=== PATIENT | female | born 1955 | race American Indian/Alaskan Native ===

== ENCOUNTER 2016-10-24 11:28 | Inpatient (IN) | payer MEDICARE, MEDICAID ==
[2016-10-24 11:29] VITALS: BMI 36.6
[2016-10-24 12:56] LABS: BASO # 0.1 K/uL (0.0-0.2); BASO % 1.4 % (0.0-2.0); EOS # 0.1 K/uL (0.0-0.7); EOS % 2.9 % (0.0-4.0); HEMATOCRIT 36.3 % (34.0-47.0); LYMPH # 1.2 K/uL (1.0-4.3); LYMPH % 24.7 % (20.0-40.0); MEAN CELL VOLUME 85.2 fL (81.0-99.0); MEAN CORPUSCULAR HGB CONC 31.7 g/dL (33.0-37.0); MEAN PLATELET VOLUME 8.4 fL (7.2-11.7); MONO # 0.5 K/uL (0.0-0.8); MONO % 10.5 % (0.0-10.0); RED CELL DISTRIBUTION WIDTH 14.8 % (11.5-14.5)
[2016-10-24 13:00] LABS: INR 2.3
[2016-10-24 13:03] LABS: CHLORIDE 99 mmol/L (98-107); SODIUM 137 mmol/L (132-148)
[2016-10-24 13:04] LABS: POTASSIUM 4.2 mmol/L (3.6-5.2)
[2016-10-24 13:06] LABS: ALB/GLOB RATIO 1.2 (1.0-2.1); ALKALINE PHOSPHATASE 53 U/L (38-126); AST/SGOT 21 U/L (14-36); BILIRUBIN,TOTAL 0.6 mg/dL (0.2-1.3); CARBON DIOXIDE 27 mmol/L (22-30); GFR AFRICAN-AMERICAN > 60; TOTAL PROTEIN 7.9 g/dL (6.3-8.3)
[2016-10-24 13:07] LABS: ALT/SGPT 21 U/L (9-52); BLOOD UREA NITROGEN 18 mg/dL (7-17); CALCIUM 8.9 mg/dl (8.6-10.4); GLUCOSE,RANDOM 110 mg/dL (65-105)
[2016-10-24 13:10] LABS: RBC URINE 1 /hpf (0-3); URINE BILIRUBIN NEGATIVE (NEGATIVE); URINE BLOOD NEGATIVE (NEGATIVE); URINE COLOR Yellow (YELLOW); URINE GLUCOSE (UA) NORMAL (Normal); URINE KETONE NEGATIVE (NEGATIVE); URINE LEUKOCYTE ESTERASE NEG Leu/uL (Negative); URINE PROTEIN NEGATIVE (NEGATIVE); URINE UROBILINOGEN NORMAL mg/dL (0.2-1.0); WBC URINE 2 /hpf (0-5)
--- NOTE | 2016-10-24 14:39 | C.PDOC ---
History Of Present Illness 60 year old female presents to the ED with complaints of swelling and redness in the right lower extremity for two days. Patient describes the pain as lasting a "long time" and two weeks ago she visited her infectious disease doctor and was given bactrim and completed the medication five days ago with some relief but symptoms have become worse since then. She notes a history of ulcers and cellulitis. Patient denies fever, chills, or trauma. Time Seen by Provider: 10/24/16 12:04 Chief Complaint (Nursing): Lower Extremity Problem/Injury History Per: Patient History/Exam Limitations: no limitations Onset/Duration Of Symptoms: Days Current Symptoms Are (Timing): Worse Past Medical History Reviewed: Historical Data, Nursing Documentation, Vital Signs Vital Signs: Last Vital Signs Temp 98.2 F 10/24/16 16:30 Pulse 86 10/24/16 16:30 Resp 18 10/24/16 16:30 BP 98/66 L 10/24/16 16:30 Pulse Ox 95 10/24/16 16:30 - Medical History PMH: Anemia, Back Problems, COPD, Diabetes, Deep Vein Thrombosis (chronic or rt leg), HTN, Hypercholesterolemia Surgical History: Endoscopy - [facility] Procedures ANESTH INJECT SYMP NERVE (10/17/14) COLONOSCOPY (06/14/14) ENDO EXCISION/DEST OF LESION OR TISSUE OF STOMACH (06/14/14) INFLUENZA VACCINATION (03/22/13) NON-INVASIVE MECHANICAL VENTILATION (01/05/13) PERIPH NERVE DESTRUCTION (12/05/14) Family History: States: Unknown Family Hx - Social History Hx Tobacco Use: No Hx Alcohol Use: No Hx Substance Use: No - Immunization History Hx Tetanus Toxoid Vaccination: Yes Hx Influenza Vaccination: Yes Hx Pneumococcal Vaccination: Yes Review Of Systems Constitutional: Negative for: Fever, Chills, Sweats Cardiovascular: Negative for: Chest Pain Respiratory: Negative for: Cough, Shortness of Breath Gastrointestinal: Negative for: Nausea, Vomiting, Abdominal Pain, Diarrhea Musculoskeletal: Positive for: Other (swelling and reness of the right lower leg ) Physical Exam - Physical Exam Appears: Non-toxic, No Acute Distress Skin: Warm, Dry, No Rash Head: Atraumatic Eye(s): bilateral: Normal Inspection Oral Mucosa: Moist Neck: Normal ROM, Supple Chest: Symmetrical, No Deformity Cardiovascular: Rhythm Regular Respiratory: No Rales, No Rhonchi, No Stridor, No Wheezing Gastrointestinal/Abdominal: Soft, No Tenderness, No Distention, No Guarding, No Rebound Extremity: Normal ROM, No Tenderness, Other (moderate swelling with area of reddness extending from mid-calf to ankle ) Neurological/Psych: Oriented x3 ED Course And Treatment - Laboratory Results Result Diagrams: 10/24/16 12:51 10/24/16 12:51 ECG: Interpreted By Me ECG Rhythm: Sinus Rhythm, R BBB ECG Interpretation: No Acute Changes Rate From EC O2 Sat by Pulse Oximetry: 100 (room air ) Medical Decision Making Medical Decision Making: Labs sent and reviewed, Post cultures pt started on tigercyl as she has multiple allergies and it has good skin as well as mrsa coverage Pt had finished a course of bactrim therefore will need admission for IV abx Discussed with dr Snell who agrees with plan Disposition - Disposition Disposition: HOSPITALIZED Disposition Time: 16:40 Condition: GOOD - Clinical Impression Clinical Impression: Cellulitis of right leg - Scribe Statement The provider has reviewed the documentation as recorded by the Scribe Brandie Mosquera All medical record entries made by the Jenibe were at my direction and personally dictated by me. I have reviewed the chart and agree that the record accurately reflects my personal performance of the history, physical exam, medical decision making, and the department course for this patient. I have also personally directed, reviewed, and agree with the discharge instructions and disposition. Decision To Admit - Pt Status Changed To: Hospital Disposition Of: Inpatient - Admit Certification Admit to Inpatient:: After my assessment, the patient will require hospitalization for at least two midnights. This is because of the severity of symptoms shown, intensity of services needed, and/or the medical risk in this patient being treated as an outpatient. - InPatient: Physician Admission Certification: I certify that this patient requires 2 or more midnights of care for the following reason:: see note - . Bed Request Type: Regular Admitting Physician: Ambrocio Ramirez Patient Diagnosis: Cellulitis of right leg
[2016-10-24] MEDS ORDERED: Morphine 4 MG/ML VIAL ONE (15:26)
[2016-10-24 19:12] VITALS: RESP 20
[2016-10-24] MEDS ORDERED: Albuterol 0.083% Inhal Sol (2.5 mg/3 mL) UD INH PRN (20:00)
[2016-10-24] MEDS: (Novolog) Insulin Aspart, Recombinant 100 u/ml 10 ml vial SC SCH (21:40)
[2016-10-25 07:26] LABS: INR 2.2
[2016-10-25 07:31] LABS: HEMATOCRIT 34.2 % (34.0-47.0); MEAN CELL VOLUME 84.6 fL (81.0-99.0); MEAN CORPUSCULAR HEMOGLOBIN 27.2 pg (27.0-31.0); MEAN CORPUSCULAR HGB CONC 32.1 g/dL (33.0-37.0); MEAN PLATELET VOLUME 8.6 fL (7.2-11.7); RED CELL DISTRIBUTION WIDTH 14.5 % (11.5-14.5); WHITE BLOOD COUNT 5.1 K/uL (4.8-10.8)
[2016-10-25] MEDS: (Novolog) Insulin Aspart, Recombinant 100 u/ml 10 ml vial SC SCH ×4 (07:41→21:48)
[2016-10-25 08:09] LABS: THYROID STIMULATING HORMONE 0.86 mIU/L (0.46-4.68)
[2016-10-25 08:11] LABS: CHLORIDE 101 mmol/L (98-107); POTASSIUM 4.2 mmol/L (3.6-5.2); SODIUM 137 mmol/L (132-148)
[2016-10-25 08:13] LABS: BILIRUBIN,TOTAL 0.5 mg/dL (0.2-1.3); GFR AFRICAN-AMERICAN > 60
[2016-10-25 08:14] LABS: ALB/GLOB RATIO 1.1 (1.0-2.1); ALKALINE PHOSPHATASE 56 U/L (38-126); ALT/SGPT 19 U/L (9-52); AST/SGOT 21 U/L (14-36); BLOOD UREA NITROGEN 22 mg/dL (7-17); CARBON DIOXIDE 26 mmol/L (22-30); GLUCOSE,RANDOM 85 mg/dL (65-105)
[2016-10-25 08:15] LABS: CALCIUM 8.5 mg/dl (8.6-10.4)
[2016-10-25] MEDS: Fluticasone-Salmeterol 250-50mcg Diskus INH SCH (08:21)
[2016-10-25] MEDS: Pantoprazole 40 mg EC Tab PO SCH (10:03)
--- NOTE | 2016-10-25 12:44 | CP.PCM.CON ---
History of Present Illness - History of Present Illness History of Present Illness: History of Present Illness: .60-year-old female with multiple medical problems including history of chronic obstructive pulmonary lung disease, obstructive sleep apnea, diabetes mellitus type 2, chronic right DVT PE, status post IVC filter with history of multiple blood infections including MRSA and enterococcal sepsis secondary to catheter related infections,STSI, Now admitted by the emergency room because of failed outpatient therapy with by mouth Bactrim one double strength twice a day X 5 DAYS. Patient states she had increasing pain right lower extremity and swelling with new pustular skin lesions noted on the right lower extremity. Patient states she was having difficulty ambulating and therefore came to ER for further evaluation. Patient has multiple allergies and was therefore started on IV Tygacil as noted. INFECTIOUS DISEASE CONSULTATION REQUESTED BY DR. RHODES PATIENT ALSO COMPLAINS OF NEW ONSET OF DIARRHEA WITH FOUR LOOSE BOWEL MOVEMENTS AND CRAMPY STOMACH. DENIES ANY NAUSEA VOMITING. PATIENT DENIES ANY FEVER OR CHILLS. PMH;as above Social history. Ex-smoker. Denies drinking. Allergies. Penicillin, vancomycin, clindamycin, latex, adhesive , shellfish. Patient is able to tolerate AZACTAM, AND TYGACIL. FAMILY HISTORY; NONCONTRIBUTORY Review of Systems - Constitutional Constitutional: absent: Chills, Fever - EENT Ears: absent: Dizziness Nose/Mouth/Throat: absent: Sore Throat - Cardiovascular Cardiovascular: absent: Chest Pain, Dyspnea - Respiratory Respiratory: Dyspnea on Exertion. absent: Cough - Gastrointestinal Gastrointestinal: Abdominal Pain, Cramping, Diarrhea. absent: Nausea, Vomiting - Genitourinary Genitourinary: absent: Dysuria, Hematuria - Menstruation Menstruation: Post Menopausal - Musculoskeletal Musculoskeletal: Abnormal Gait, Back Pain, Radiating Pain into Limb - Integumentary Integumentary: Skin Ulcer (TO SKIN ULCERS/ PUSTULES NOTED ON THE RIGHT LOWER EXTREMITY) - Neurological Neurological: absent: Headaches - Hematologic/Lymphatic Hematologic: As Per HPI. absent: Easy Bleeding, Easy Bruising, Lymphadenopathy Past Patient History - Infectious Disease Hx of Infectious Diseases: MRSA - Past Medical History & Family History Past Medical History?: Yes - Past Social History Smoking Status: Never Smoked - CARDIAC Hx Hypercholesterolemia: Yes Hx Hypertension: Yes - PULMONARY Hx Chronic Obstructive Pulmonary Disease (COPD): Yes - NEUROLOGICAL Hx Neurological Disorder: No - HEENT Hx HEENT Problems: No - RENAL Hx Chronic Kidney Disease: No - ENDOCRINE/METABOLIC Hx Endocrine Disorders: Yes Hx Diabetes Mellitus Type 2: Yes - HEMATOLOGICAL/ONCOLOGICAL Hx Anemia: Yes - INTEGUMENTARY Hx Dermatological Problems: No - MUSCULOSKELETAL/RHEUMATOLOGICAL Hx Musculoskeletal Disorders: No Hx Falls: Yes (multiple) - GASTROINTESTINAL Hx Gastrointestinal Disorders: Yes Hx Gastroesophageal Reflux: Yes - GENITOURINARY/GYNECOLOGICAL Hx Genitourinary Disorders: No - PSYCHIATRIC Hx Substance Use: No - SURGICAL HISTORY Hx Surgeries: Yes Hx Section: Yes Hx Hysterectomy: Yes Hx Vascular Access Device: Yes (Portacath insertion Right Chest Wall) Other/Comment: Fibroids/Adhesions removal. Bladder Sx - ANESTHESIA Hx Anesthesia: Yes Hx Anesthesia Reactions: No Hx Malignant Hyperthermia: No Has any member of the family had a problem w/ anesthesia?: No Meds Allergies/Adverse Reactions: Allergies Allergy/AdvReac Type Severity Reaction Status Date / Time adhesive tape Allergy Verified 10/24/16 12:57 clindamycin Allergy Verified 10/24/16 12:57 Latex, Natural Rubber Allergy Verified 10/24/16 12:57 Penicillins Allergy Verified 10/24/16 12:57 shellfish derived Allergy Verified 10/24/16 12:57 vancomycin Allergy Verified 10/24/16 12:57 - Medications Medications: Current Medications Albuterol Sulfate (Albuterol 0.083% Inhal Marilou (2.5 Mg/3 Ml) Ud) 2.5 mg INH RTID PRN PRN Reason: Shortness of Breath Last Admin: 10/25/16 08:21 Dose: 2.5 mg Gabapentin (Neurontin) 100 mg PO BID [facility] Last Admin: 10/25/16 10:02 Dose: 100 mg Glipizide (Glucotrol) 5 mg PO ACB [facility] Last Admin: 10/25/16 08:20 Dose: 5 mg Tigecycline 50 mg/ Sodium (Chloride) 100 mls @ 100 mls/hr IVPB Q12H [facility] Last Admin: 10/25/16 10:17 Dose: 100 mls/hr Insulin Aspart (Novolog) 0 unit SC ACHS ARTEM PRN Reason: Protocol Last Admin: 10/25/16 12:35 Dose: Not Given Losartan Potassium (Cozaar) 100 mg PO DAILY [facility] Last Admin: 10/25/16 10:03 Dose: 100 mg Metformin HCl (Glucophage Xr) 750 mg PO QPM [facility] Metformin HCl (Glucophage) 500 mg PO ACB [facility] Last Admin: 10/25/16 08:20 Dose: 500 mg Montelukast Sodium (Singulair) 10 mg PO HS [facility] Last Admin: 10/24/16 21:40 Dose: 10 mg Pantoprazole Sodium (Protonix Ec Tab) 40 mg PO DAILY [facility] Last Admin: 10/25/16 10:03 Dose: 40 mg Rosuvastatin Calcium (Crestor) 5 mg PO HS [facility] Last Admin: 10/24/16 21:40 Dose: 5 mg Fluticasone/Salmeterol (Advair Diskus 250/50) 1 puff INH RQD [facility] Last Admin: 10/25/16 08:21 Dose: Not Given Physical Exam - Constitutional Appears: No Acute Distress - Head Exam Head Exam: NORMAL INSPECTION - Eye Exam Eye Exam: EOMI, PERRL - ENT Exam ENT Exam: Normal Oropharynx - Neck Exam Neck exam: Positive for: Normal Inspection - Respiratory Exam Respiratory Exam: Decreased Breath Sounds - Cardiovascular Exam Cardiovascular Exam: REGULAR RHYTHM, +S1, +S2 - GI/Abdominal Exam GI & Abdominal Exam: Normal Bowel Sounds, Soft. absent: Tenderness (MID ABDOMEN.) - Extremities Exam Extremities exam: Positive for: calf tenderness, pedal edema, tenderness ( 2 PUSTULES SEEN ANTERIORLY AND POSTERIORLY RIGHT LOWER EXTREMITY) - Neurological Exam Neurological exam: Alert, CN II-XII Intact, Oriented x3, Reflexes Normal - Psychiatric Exam Psychiatric exam: Normal Mood - Skin Skin Exam: Normal Color, Warm Results - Vital Signs Recent Vital Signs: Last Vital Signs Temp 97.5 F L 10/25/16 08:00 Pulse 83 10/25/16 08:22 Resp 20 10/25/16 08:00 BP 110/74 10/25/16 08:00 Pulse Ox 100 10/25/16 08:00 - Labs Result Diagrams: 10/25/16 07:12 10/25/16 07:12 Labs: Laboratory Results - last 24 hr 10/24/16 10/25/16 10/25/16 21:14 07:12 07:12 WBC 5.1 RBC 4.05 Hgb 11.0 Hct 34.2 MCV 84.6 MCH 27.2 MCHC 32.1 L RDW 14.5 Plt Count 282 MPV 8.6 PT INR Sodium Potassium Chloride Carbon Dioxide Anion Gap BUN Creatinine Est GFR ( Amer) Est GFR (Non-Af Amer) POC Glucose (mg/dL) 149 H Random Glucose Hemoglobin A1c 6.1 Calcium Total Bilirubin AST ALT Alkaline Phosphatase Total Protein Albumin Globulin Albumin/Globulin Ratio TSH 3rd Generation 10/25/16 10/25/16 10/25/16 07:12 07:12 07:24 WBC RBC Hgb Hct MCV MCH MCHC RDW Plt Count MPV PT 25.8 H INR 2.2 Sodium 137 Potassium 4.2 Chloride 101 Carbon Dioxide 26 Anion Gap 14 BUN 22 H Creatinine 0.9 Est GFR ( Amer) > 60 Est GFR (Non-Af Amer) > 60 POC Glucose (mg/dL) 87 Random Glucose 85 Hemoglobin A1c Calcium 8.5 L Total Bilirubin 0.5 AST 21 ALT 19 Alkaline Phosphatase 56 Total Protein 7.0 Albumin 3.7 Globulin 3.3 Albumin/Globulin Ratio 1.1 TSH 3rd Generation 0.86 Assessment & Plan (1) Cellulitis of right leg Status: Acute (2) Deep venous thrombosis of lower extremity Status: Acute (3) Diabetes mellitus Status: Acute (4) Hypertension Status: Acute (5) Sleep apnea in adult Status: Acute - Assessment and Plan (Free Text) Assessment: IMPRESSION; 1. CELLULITES /VENOUS ULCERS RT LE. 2. DIABETES MELLITES. 3. CHRONIC RT LOWER EXTREMITY DVT. 4. HX OF PE AND IVC. 5. VENOUS INSUFFICIENCY. 6. NEW ONSET OF DIARRHEA. 7. HYPERTENSION SUGGESTIONS. PANCULTURES ESR,CRP. MRSA SCREEN STOOLS FOR C. DIFFICILE TOXIN STOOLS FOR LEUKOCYTES. CONTINUE IV TYGACIL 50 MG iv PIGGYBACK EVERY 12 HOURLY (10/24/16 ) TO REVIEW DUPLEX VENOUS STUDIES ORDERED BY PMD. fOLLOW-UP BLOOD CULTURES TO ADJUST ANTIBIOTICS. CASE DISCUSSED W STAFF.
--- NOTE | 2016-10-25 13:13 | VASCLAB ---
PROCEDURE: Right Lower Extremity Venous Duplex Exam. HISTORY: Leg pain PRIORS: None. TECHNIQUE: Right common femoral, femoral, popliteal and posterior tibial, peroneal and great saphenous veins were evaluated. Flow was assessed with color Doppler, compressibility, assessment of phasic flow and augmentation response. Report prepared by MITZI Melgar, RVT FINDINGS: RIGHT: 1. Common Femoral Vein: 1.1. Compressibility - Fully compressible: Thrombus - None: Flow - Phasic: Augmentation -Normal: Reflux - None. 2. Femoral Vein: 2.1. Compressibility - Fully compressible: Thrombus - None: Flow - Phasic: Augmentation -Normal: Reflux - None. 3. Popliteal Vein: 3.1. Compressibility - Fully compressible: Thrombus - None: Flow - Phasic: Augmentation -Normal: Reflux - Severe. 4. Posterior Tibial Vein: 4.1. Compressibility - Fully compressible: Thrombus - None: Flow - Phasic: Augmentation -Normal: Reflux - None. 5. Peroneal Vein: 5.1. Compressibility - Fully compressible: Thrombus - None: Flow - Phasic: Augmentation -Normal: Reflux - None. 6. Great Saphenous Vein: 6.1. Compressibility - Fully compressible: Thrombus -None: Flow - Phasic: Augmentation - Normal: Reflux - None. OTHER FINDINGS: Severe valvular incompetence of the right popliteal vein. IMPRESSION: No evidence of deep or superficial vein thrombosis of the right lower extremity with excellent venous flow. Normal valve function noted of the right side. Normal venous flow noted in the left common femoral vein.
--- NOTE | 2016-10-25 21:43 | HP ---
The patient is a 60-year-old female with history of diabetes, hypertension, chronic DVT and COPD. Th e patient they came in today to the Emergency Room complaining of pain to the right lower extremity a nd swelling. The patient has stated having been treated by Infectious Disease, Dr. Smith and received ; however, ____ 5 days, there is no apparent improvement and the leg was swollen and tender, so the patient came to the Emergency Room for evaluation and the patient was admitted. ALLERGIES: THE PATIENT IS ALLERGIC TO CLINDAMYCIN, ADHESIVE TAPE AND VANCOMYCIN. SOCIAL HISTORY: The patient is , has children. No smoking or alcohol abuse. FAMILY HISTORY: No inherited disease. MEDICATIONS: The patient was on valsartan, metformin, Prevacid, Neurontin, Coumadin, Singulair and g lipizide. REVIEW OF SYSTEMS: RESPIRATORY: No shortness of breath. CARDIOVASCULAR: Denied any chest pain or palpitations. GASTROINTESTINAL: No nausea or vomiting, but some epigastric discomfort. GENITOURINARY: No dysuria. NEUROLOGIC: The patient to the right lower extremity. PHYSICAL EXAMINATION: GENERAL: Patient is alert, awake and oriented x 3. VITAL SIGNS: The blood pressure was 110/74, pulse is 99, respirations are 20 and temperature 97.5. HEAD: Is normocephalic and atraumatic. NECK: Supple, no JVD. LUNGS: Clear. HEART: Regular rate and rhythm. ABDOMEN: Soft. Mild epigastric tenderness. EXTREMITIES: There is swelling of the right leg which is red, tender and warm. The redness goes from ankle to the upper portion of the right leg, anteriorly and posteriorly. LABORATORY DATA: The patient also had some blood tests done. The WBC was 5, hemoglobin 11.5, hemat ocrit 36.3 and platelets 288. Coagulation: PT and INR 2.3. Chemistry: Sodium 137, potassium 4.2, chloride 101, bicarb is 26, BUN 22, creatinine 0.9 and glucose 85. A hemoglobin A1c is 6.1 and calcium 8.5. So this patient's urine was normal. So, the patient is admitted with diagnosis of cellulitis of the right leg, diabetes, hypertension, ne uropathy and chronic DVT. So, the patient will have a consult with Ambrocio Ramirez MD cc: [id number] TT: 10/25/2016 21:42:24 [facility] # [id number] sn
[2016-10-26 07:58] LABS: INR 1.7
[2016-10-26 08:05] LABS: ALB/GLOB RATIO 1.1 (1.0-2.1); BILIRUBIN,DIRECT 0.4 mg/dL (0.0-0.4); BILIRUBIN,TOTAL 0.4 mg/dL (0.2-1.3); TOTAL PROTEIN 6.9 g/dL (6.3-8.3)
[2016-10-26] MEDS: (Novolog) Insulin Aspart, Recombinant 100 u/ml 10 ml vial SC SCH ×4 (08:25→21:59)
[2016-10-26] MEDS: Fluticasone-Salmeterol 250-50mcg Diskus INH SCH (09:18)
--- NOTE | 2016-10-26 09:45 | CARD ---
APPROVED REPORT EKG Measurement Heart [id number] <Conclusion> Normal sinus rhythm Right bundle branch block Abnormal ECG
[2016-10-26] MEDS: Pantoprazole 40 mg EC Tab PO SCH (10:19)
--- NOTE | 2016-10-26 13:26 | CP.PCM.PN ---
Subjective - Date & Time of Evaluation Date of Evaluation: 10/26/16 Time of Evaluation: 13:26 - Subjective Subjective: C/O PAIN RIGHT LOWER EXTREMITY. CRAMPY ABDOMINAL PAIN DIARRHEA +VE LABS; REVIEWED STOOL c. DIFFICILE NEGATIVE. CRP HIGH CASE DISCUSSED WITH STAFF AZIZA FOR MRI RIGHT LOWER EXTREMITY R/O SOFT TISSUE INFECTION VS OSTEOMYELITIS. CONTINUE iv TYGACIL 50 MG EVERY 12 HOURLY FOR NOW. Objective - Vital Signs/Intake and Output Vital Signs (last 24 hours): Temp Pulse Resp BP Pulse Ox 98 F 84 20 122/77 96 10/26/16 07:46 10/26/16 07:46 10/26/16 07:46 10/26/16 07:46 10/26/16 07:46 Intake and Output: 10/26/16 10/26/16 06:59 18:59 Intake Total 250 Balance 250 - Medications Medications: Current Medications Albuterol Sulfate (Albuterol 0.083% Inhal Marilou (2.5 Mg/3 Ml) Ud) 2.5 mg INH RTID PRN PRN Reason: Shortness of Breath Last Admin: 10/25/16 08:21 Dose: 2.5 mg Gabapentin (Neurontin) 100 mg PO BID [facility] Last Admin: 10/26/16 10:19 Dose: 100 mg Glipizide (Glucotrol) 5 mg PO ACB [facility] Last Admin: 10/26/16 08:38 Dose: 5 mg Tigecycline 50 mg/ Sodium (Chloride) 100 mls @ 100 mls/hr IVPB Q12H [facility] Last Admin: 10/26/16 10:21 Dose: 100 mls/hr Insulin Aspart (Novolog) 0 unit SC ACHS [facility] PRN Reason: Protocol Last Admin: 10/26/16 12:34 Dose: Not Given Losartan Potassium (Cozaar) 100 mg PO DAILY [facility] Last Admin: 10/26/16 10:19 Dose: 100 mg Metformin HCl (Glucophage Xr) 750 mg PO QPM [facility] Last Admin: 10/25/16 17:56 Dose: 750 mg Metformin HCl (Glucophage) 500 mg PO ACB [facility] Last Admin: 10/26/16 08:38 Dose: 500 mg Montelukast Sodium (Singulair) 10 mg PO HS [facility] Last Admin: 10/25/16 21:46 Dose: 10 mg Morphine Sulfate (Morphine) 2 mg IVP Q4 PRN PRN Reason: Pain, severe (8-10) Last Admin: 10/26/16 10:17 Dose: 2 mg Pantoprazole Sodium (Protonix Ec Tab) 40 mg PO DAILY [facility] Last Admin: 10/26/16 10:19 Dose: 40 mg Rosuvastatin Calcium (Crestor) 5 mg PO HS [facility] Last Admin: 10/25/16 21:46 Dose: 5 mg Fluticasone/Salmeterol (Advair Diskus 250/50) 1 puff INH RQD [facility] Last Admin: 10/26/16 09:18 Dose: Not Given - Labs Labs: 10/25/16 07:12 10/25/16 07:12 PT 19.3 SECONDS (9.7-12.2) H D 10/26/16 07:09 INR 1.7 D 10/26/16 07:09 - Constitutional Appears: No Acute Distress - Head Exam Head Exam: NORMAL INSPECTION - Eye Exam Eye Exam: EOMI, PERRL - ENT Exam ENT Exam: Normal Oropharynx - Neck Exam Neck Exam: Normal Inspection - Respiratory Exam Respiratory Exam: Prolonged Expiratory Phase - GI/Abdominal Exam GI & Abdominal Exam: Soft, Normal Bowel Sounds. absent: Organomegaly - Extremities Exam Extremities Exam: Calf Tenderness (RT. LOWER EXTREMITY.), Pedal Edema - Neurological Exam Neurological Exam: Alert, Awake, CN II-XII Intact - Psychiatric Exam Psychiatric exam: Normal Mood - Skin Skin Exam: Normal Color, Warm Assessment and Plan (1) Cellulitis of right leg Assessment & Plan: CONTINUE iv TYGACIL 50 MG EVERY 12 HOURLY FOR NOW Status: Acute (2) Deep venous thrombosis of lower extremity Status: Acute (3) Diabetes mellitus Status: Acute (4) Hypertension Status: Acute (5) Sleep apnea in adult Status: Acute
--- NOTE | 2016-10-26 19:42 | PN ---
DATE: 10/26/2016 Today, the patient is alert and awake and complaining of some pain to the right leg. Denies any shor tness of breath, no chest pain, no palpitation. No dizziness, but patient complaining of some epigas tric discomfort at time. PHYSICAL EXAMINATION: VITAL SIGNS: The patient has a blood pressure of 132/83, pulse 91, respirations 20, temperature 98.2 . GENERAL: The patient is awake. NECK: Supple. LUNGS: Clear. HEART: Regular rate and rhythm. CHEST: There is some mild tenderness to the low aspect of the chest wall and sternum, increasing pre ssure of the lowest part of the sternum and mild tenderness in epigastric area of the abdomen. ABDOMEN: No palpable mass in the abdomen. EXTREMITIES: There is swelling of the right lower right leg, which is red, tender and warm. The patient has an ID consult with Dr. Yonas Smith. The patient was put on antibiotic therapy and al so the patient is getting warfarin. LABORATORY DATA: Done today shows WBC is 5.1, hemoglobin 11, hematocrit 34.2 and platelet is 282. C hemistry: ____ 0.4 ____ reactive ____, this is high.. PLAN: We are going to continue the antibiotic therapy and also we are going to order MRI of the righ t leg to rule out osteomyelitis. Ambrocio Ramirez MD cc: [id number] TT: 10/26/2016 19:41:31 Confirmation # [id number] Dictation # [id number]
[2016-10-27 06:53] LABS: INR 1.6
[2016-10-27] MEDS: (Novolog) Insulin Aspart, Recombinant 100 u/ml 10 ml vial SC SCH ×4 (08:14→21:25)
[2016-10-27] MEDS: Fluticasone-Salmeterol 250-50mcg Diskus INH SCH (11:11)
[2016-10-27] MEDS: Pantoprazole 40 mg EC Tab PO SCH (11:18)
--- NOTE | 2016-10-27 12:36 | NM ---
PROCEDURE: Three-phase bone HISTORY: RECURRENT ULCERS RT.LE R/O OSTEOMYLITIS COMPARISON: 01/28/2015 TECHNIQUE: Following administration of scan 27.4 miCu of Tc MDP multiplanar whole body images were obtained. FINDINGS: Flow component: Symmetrical flow to both lower extremities without focal osseous abnormality. Blood pool component: Accumulation of radionuclide in the proximal right calf soft tissues without adjacent osseous abnormality. Delayed images at 3:00: Degenerative changes in both knees. Similar less pronounced in asymmetric changes and feet right greater than left. Focal increased uptake in the proximal right tibia a finding identified on prior bone scan 01/28/2015. IMPRESSION: No evidence of acute osseous process/ osteomyelitis. Focal increased accumulation of radionuclide in the soft tissues of the proximal right calf.
--- NOTE | 2016-10-27 13:20 | CP.PCM.PN ---
Subjective - Date & Time of Evaluation Date of Evaluation: 10/27/16 Time of Evaluation: 13:20 - Subjective Subjective: AFEBRILE C/O PAIN RIGHT LOWER EXTREMITY. DENIES ABDOMINAL PAIN . PT. REFUSING MRI RT.LEG AGREES TO DO 3 PHASE BONE SCAN RT.LE. Objective - Vital Signs/Intake and Output Vital Signs (last 24 hours): Temp Pulse Resp BP Pulse Ox 97.9 F 89 20 134/77 98 10/27/16 08:00 10/27/16 08:00 10/27/16 08:00 10/27/16 08:00 10/27/16 08:00 Intake and Output: 10/27/16 10/27/16 06:59 18:59 Intake Total 600 Balance 600 - Medications Medications: Current Medications Albuterol Sulfate (Albuterol 0.083% Inhal Marilou (2.5 Mg/3 Ml) Ud) 2.5 mg INH RTID PRN PRN Reason: Shortness of Breath Last Admin: 10/25/16 08:21 Dose: 2.5 mg Gabapentin (Neurontin) 100 mg PO BID [facility] Last Admin: 10/27/16 10:49 Dose: 100 mg Glipizide (Glucotrol) 5 mg PO ACB [facility] Last Admin: 10/27/16 08:00 Dose: 5 mg Tigecycline 50 mg/ Sodium (Chloride) 100 mls @ 100 mls/hr IVPB Q12H [facility] Last Admin: 10/27/16 10:50 Dose: 100 mls/hr Insulin Aspart (Novolog) 0 unit SC ACHS [facility] PRN Reason: Protocol Last Admin: 10/27/16 08:14 Dose: Not Given Losartan Potassium (Cozaar) 100 mg PO DAILY [facility] Last Admin: 10/27/16 10:49 Dose: 100 mg Metformin HCl (Glucophage Xr) 750 mg PO QPM [facility] Last Admin: 10/26/16 18:00 Dose: 750 mg Metformin HCl (Glucophage) 500 mg PO ACB [facility] Last Admin: 10/27/16 08:35 Dose: 500 mg Montelukast Sodium (Singulair) 10 mg PO HS [facility] Last Admin: 10/26/16 21:54 Dose: 10 mg Morphine Sulfate (Morphine) 2 mg IVP Q4 PRN PRN Reason: Pain, severe (8-10) Last Admin: 10/27/16 10:56 Dose: 2 mg Pantoprazole Sodium (Protonix Ec Tab) 40 mg PO DAILY [facility] Last Admin: 10/27/16 11:18 Dose: 40 mg Rosuvastatin Calcium (Crestor) 5 mg PO HS [facility] Last Admin: 10/26/16 21:54 Dose: 5 mg Fluticasone/Salmeterol (Advair Diskus 250/50) 1 puff INH RQD [facility] Last Admin: 10/27/16 11:11 Dose: Not Given Warfarin Sodium (Coumadin) 5 mg PO 1800 [facility] Stop: 10/27/16 18:01 - Labs Labs: 10/25/16 07:12 10/25/16 07:12 PT 18.5 SECONDS (9.7-12.2) H 10/27/16 06:15 INR 1.6 10/27/16 06:15 - Constitutional Appears: No Acute Distress - Head Exam Head Exam: NORMAL INSPECTION - Eye Exam Eye Exam: EOMI, PERRL - ENT Exam ENT Exam: Normal Oropharynx - Neck Exam Neck Exam: Normal Inspection - Respiratory Exam Respiratory Exam: Rhonchi (SCATTERED RHONCHI.) - Cardiovascular Exam Cardiovascular Exam: REGULAR RHYTHM, +S1, +S2 - GI/Abdominal Exam GI & Abdominal Exam: Soft, Normal Bowel Sounds. absent: Tenderness - Extremities Exam Extremities Exam: Pedal Edema (RT.LE CELLULITUSWITH TENDERNESS POSTERIORLY AT SITE OF VENOUS ULCER.) Assessment and Plan (1) Cellulitis of right leg Assessment & Plan: CONTINUE IV TYGACIL . PT FOR 3 PHASE BONE SCAN. LABS REVIEWED. Status: Acute (2) Deep venous thrombosis of lower extremity Status: Acute (3) Diabetes mellitus Status: Acute (4) Hypertension Status: Acute (5) Sleep apnea in adult Status: Acute
--- NOTE | 2016-10-27 18:47 | PN ---
DATE: 10/27/2016 The patient is alert, awake, complaining of some pain to the right upper leg. Denies shortness of br eath and chest pain, no palpitations. No constipation. PHYSICAL EXAMINATION: VITAL SIGNS: The patient has a blood pressure of 104/58, pulse is 89-100, respirations 20, temperatu re 98 degrees Fahrenheit. NECK: Supple, no JVD. LUNGS: Clear. HEART: Regular rate and rhythm, but tachycardic. ABDOMEN: Soft, obese, nontender. No palpable mass. EXTREMITIES: There is redness on the right leg, more on the posterior aspect of the leg ____ also te nder and warm. LABORATORY DATA: The patient had some blood tests done. WBC is 5.9, hemoglobin 11, hematocrit 34.2 and platelet is 282. ____ 18.5 and PT/INR is 1.6. Chemistry not available today, but the sugar was low during the day, 65. Now the sugar is 147. PLAN: We are going to continue the antibiotic therapy, ____ and the current medications. The case d iscussed with the Aleyda PRICE nurse practitioner. Ambrocio Ramirez MD cc: [id number] TT: 10/27/2016 18:46:30 Confirmation # [id number] Dictation # [id number] vanesa
[2016-10-27 23:33] VITALS: O2SAT 97
[2016-10-28 07:34] LABS: INR 1.7
[2016-10-28] MEDS: (Novolog) Insulin Aspart, Recombinant 100 u/ml 10 ml vial SC SCH ×2 (16:30→21:51)
--- NOTE | 2016-10-28 19:06 | CON ---
DATE: 10/28/2016 CHIEF COMPLAINT: The patient complaining of pain, right lower extremity, states "it's killing" her. Presently denies any diarrhea or abdominal cramps. ALLERGIES: MULTIPLE ALLERGIES INCLUDING PENICILLIN, VANCOMYCIN. PHYSICAL EXAMINATION: GENERAL: The patient is awake, alert, not in any acute distress. VITAL SIGNS: Blood pressure 120/80, respirations 18, pulse of 68 per minute. HEENT: Pupils equal, reactive to light and accommodation. Extraocular movements full. Fundus negat kira. Sclerae nonicteric. Conjunctivae normal. JVP not elevated. NECK: Appears to be supple. LUNGS: Few basilar crackles and rhonchi. CARDIOVASCULAR SYSTEM: S1, S2, no murmur or gallop. ABDOMEN: Soft, bowel sounds are present, nontender. EXTREMITIES: The right lower extremity still swelling and cellulitis present, senior care from the ankle to the lower middle of the leg. The wound on the right lower extremity and foot anteriorly and post eriorly is getting slightly dry and improving, but tender to touch. Pulses are palpable. CENTRAL NERVOUS SYSTEM: No gross deficits. Moves all extremities. LABORATORY DATA: Pending. IMPRESSION: 1. Right lower extremity cellulitis, with negative bone scan. 2. History of right leg deep venous thrombosis and pulmonary embolism. 3. At exacerbation of chronic obstructive pulmonary disease. PLAN: Continue IV Tygacil for now, 50 mg q. 12 hourly. Case discussed with the staff. Presently co mputers are down and could not get into the labs. We will follow along with you and make further rec ommendations. Yesterday, as discussed with staff, the patient will need 9 days of IV Tygacil more, _ ___ about a week of IV Tygacil. We will follow up with you. Yonas Smith MD cc: [id number] TT: 10/28/2016 19:05:31 Confirmation # [id number] Dictation # [id number] vanesa
--- NOTE | 2016-10-28 19:24 | PN ---
DATE: 10/28/2016 Today patient was seen earlier. Denies any shortness of breath, no chest pain, no palpitations. The patient admitted having good bowel movement, but complaining of some pain to the right leg. PHYSICAL EXAMINATION: VITAL SIGNS: The patient has a normal blood pressure today. NECK: Supple. LUNGS: Clear. HEART: Regular rate and rhythm. ABDOMEN: Soft, nontender. EXTREMITIES: There is redness of the right leg, improving, with tenderness and also the right leg re doc warm. The patient . We are going to continue the antibiotic therapy. The is for patient to go to TCU at [facility] when bed is available. The case was discussed with Gui Ramon, the nurse practitioner. Ambrocio Ramirez MD cc: [id number] TT: 10/28/2016 19:24:05 Confirmation # [id number] Dictation # [id number] louise
--- NOTE | 2016-10-28 22:52 | CP.PCM.PN ---
Subjective - Date & Time of Evaluation Date of Evaluation: 10/28/16 Time of Evaluation: 22:51 - Subjective Subjective: iinfectious disease follow-up Date 10/28/16. Dictated; Dictation #[id number].see reports. Objective - Vital Signs/Intake and Output Vital Signs (last 24 hours): Temp Pulse Resp BP Pulse Ox 98.0 F 103 H 20 96/64 L 97 10/28/16 15:00 10/28/16 15:00 10/28/16 15:00 10/28/16 15:00 10/28/16 15:00 - Medications Medications: Current Medications Albuterol Sulfate (Albuterol 0.083% Inhal Marilou (2.5 Mg/3 Ml) Ud) 2.5 mg INH RTID PRN PRN Reason: Shortness of Breath Last Admin: 10/25/16 08:21 Dose: 2.5 mg Gabapentin (Neurontin) 100 mg PO BID [facility] Last Admin: 10/27/16 17:18 Dose: 100 mg Tigecycline 50 mg/ Sodium (Chloride) 100 mls @ 100 mls/hr IVPB Q12H [facility] Last Admin: 10/28/16 21:55 Dose: 100 mls/hr Insulin Aspart (Novolog) 0 unit SC ACHS [facility] PRN Reason: Protocol Last Admin: 10/28/16 21:51 Dose: Not Given Losartan Potassium (Cozaar) 100 mg PO DAILY [facility] Last Admin: 10/27/16 10:49 Dose: 100 mg Metformin HCl (Glucophage) 500 mg PO ACB [facility] Last Admin: 10/27/16 08:35 Dose: 500 mg Montelukast Sodium (Singulair) 10 mg PO HS [facility] Last Admin: 10/28/16 21:54 Dose: 10 mg Morphine Sulfate (Morphine) 2 mg IVP Q4 PRN PRN Reason: Pain, severe (8-10) Last Admin: 10/28/16 22:04 Dose: 2 mg Pantoprazole Sodium (Protonix Ec Tab) 40 mg PO DAILY [facility] Last Admin: 10/27/16 11:18 Dose: 40 mg Rosuvastatin Calcium (Crestor) 5 mg PO HS [facility] Last Admin: 10/28/16 21:54 Dose: 5 mg Fluticasone/Salmeterol (Advair Diskus 250/50) 1 puff INH RQD [facility] Last Admin: 10/27/16 11:11 Dose: Not Given Warfarin Sodium (Coumadin) 5 mg PO 1800 [facility] - Labs Labs: 10/25/16 07:12 10/25/16 07:12 PT 19.8 SECONDS (9.7-12.2) H 10/28/16 04:00 INR 1.7 10/28/16 04:00 Assessment and Plan (1) Cellulitis of right leg Status: Acute (2) Deep venous thrombosis of lower extremity Status: Acute (3) Diabetes mellitus Status: Acute (4) Hypertension Status: Acute (5) Sleep apnea in adult Status: Acute
[2016-10-29] MEDS: (Novolog) Insulin Aspart, Recombinant 100 u/ml 10 ml vial SC SCH ×3 (07:55→17:10)
[2016-10-29 08:38] LABS: BASO # 0.1 K/uL (0.0-0.2); BASO % 1.3 % (0.0-2.0); EOS # 0.3 K/uL (0.0-0.7); EOS % 4.2 % (0.0-4.0); HEMATOCRIT 37.3 % (34.0-47.0); LYMPH # 2.6 K/uL (1.0-4.3); LYMPH % 38.9 % (20.0-40.0); MEAN CELL VOLUME 84.6 fL (81.0-99.0); MEAN CORPUSCULAR HEMOGLOBIN 27.4 pg (27.0-31.0); MEAN CORPUSCULAR HGB CONC 32.4 g/dL (33.0-37.0); MEAN PLATELET VOLUME 8.5 fL (7.2-11.7); MONO # 0.6 K/uL (0.0-0.8); RED CELL DISTRIBUTION WIDTH 14.8 % (11.5-14.5); WHITE BLOOD COUNT 6.7 K/uL (4.8-10.8)
[2016-10-29 08:40] LABS: INR 1.7
[2016-10-29 09:15] LABS: CHLORIDE 105 mmol/L (98-107); SODIUM 140 mmol/L (132-148)
[2016-10-29 09:16] LABS: POTASSIUM 4.5 mmol/L (3.6-5.2)
[2016-10-29 09:18] LABS: ALKALINE PHOSPHATASE 72 U/L (38-126); ALT/SGPT 23 U/L (9-52); AST/SGOT 17 U/L (14-36); BILIRUBIN,DIRECT 0.3 mg/dL (0.0-0.4); BILIRUBIN,TOTAL 0.4 mg/dL (0.2-1.3); BLOOD UREA NITROGEN 22 mg/dL (7-17); CARBON DIOXIDE 24 mmol/L (22-30); GFR AFRICAN-AMERICAN > 60; GLUCOSE,RANDOM 103 mg/dL (65-105)
[2016-10-29] MEDS: Pantoprazole 40 mg EC Tab PO SCH (09:50)
[2016-10-29] MEDS: Fluticasone-Salmeterol 250-50mcg Diskus INH SCH (10:10)
--- NOTE | 2016-10-29 13:26 | CP.PCM.PN ---
Subjective - Date & Time of Evaluation Date of Evaluation: 10/29/16 Time of Evaluation: 11:00 - Subjective Subjective: Pt seen and examined today , states feels beeter, still c/o pain to the r lower extremities , denies any fever, chills, n/v/d, a febrile Objective - Vital Signs/Intake and Output Vital Signs (last 24 hours): Temp Pulse Resp BP Pulse Ox 97.5 F L 90 20 108/71 97 10/29/16 08:00 10/29/16 08:00 10/29/16 08:00 10/29/16 08:00 10/29/16 08:00 Intake and Output: 10/29/16 10/29/16 06:59 18:59 Intake Total 250 Balance 250 - Medications Medications: Current Medications Albuterol Sulfate (Albuterol 0.083% Inhal Marilou (2.5 Mg/3 Ml) Ud) 2.5 mg INH RTID PRN PRN Reason: Shortness of Breath Last Admin: 10/25/16 08:21 Dose: 2.5 mg Gabapentin (Neurontin) 100 mg PO BID [facility] Last Admin: 10/29/16 09:50 Dose: 100 mg Tigecycline 50 mg/ Sodium (Chloride) 100 mls @ 100 mls/hr IVPB Q12H [facility] Last Admin: 10/29/16 10:47 Dose: 100 mls/hr Insulin Aspart (Novolog) 0 unit SC ACHS [facility] PRN Reason: Protocol Last Admin: 10/29/16 11:46 Dose: 1 unit Losartan Potassium (Cozaar) 100 mg PO DAILY [facility] Last Admin: 10/29/16 09:50 Dose: 100 mg Metformin HCl (Glucophage) 500 mg PO ACB [facility] Last Admin: 10/29/16 07:51 Dose: 500 mg Montelukast Sodium (Singulair) 10 mg PO HS [facility] Last Admin: 10/28/16 21:54 Dose: 10 mg Morphine Sulfate (Morphine) 2 mg IVP Q4 PRN PRN Reason: Pain, severe (8-10) Last Admin: 10/29/16 09:51 Dose: 2 mg Pantoprazole Sodium (Protonix Ec Tab) 40 mg PO DAILY [facility] Last Admin: 10/29/16 09:50 Dose: 40 mg Rosuvastatin Calcium (Crestor) 5 mg PO HS [facility] Last Admin: 10/28/16 21:54 Dose: 5 mg Fluticasone/Salmeterol (Advair Diskus 250/50) 1 puff INH RQD [facility] Last Admin: 10/29/16 10:10 Dose: 1 puff Warfarin Sodium (Coumadin) 5 mg PO 1800 [facility] - Labs Labs: 10/29/16 08:14 10/29/16 08:14 PT 20.2 SECONDS (9.7-12.2) H 10/29/16 08:14 INR 1.7 10/29/16 08:14 Assessment and Plan - Assessment and Plan (Free Text) Assessment: A/P 60 yr old female admitted for cellulitis of LE bine scan - negative pt on tigacil and responding weel D/W Dr. Kumar , cleared for discharge to TCU and continue 5 more days of togacil D/W Dr. Ramirez, [facility] and Dr. Ramirez will follow the pateitn at TCU
[2016-10-29 16:55] VITALS: BP 102/61; PULSE 106; TEMP 98.2
--- NOTE | 2016-10-29 23:07 | DS ---
The patient is a 60-year-old female with history of diabetes, hypertension, peripheral neuropathy and also has history of chronic DVD. The patient came to the Emergency Room because the patient had swe lling of the right lower extremity, which was tender and warm. The patient previously was taking ant ibiotic at home given by the ID, Dr. Smith, but however, major evolution of the infection. The patient decided to come to the Emergency Room for evaluation and the patient was admitted. PHYSICAL EXAMINATION: GENERAL: The patient had a physical exam, was alert and awake, oriented x 3 and pain to the [facility] lower extremity. The patient was alert and awake. LUNGS: Clear. HEART: Regular, sometimes tachycardic. ABDOMEN: Soft, obese, nontender. EXTREMITIES: There is swelling of the right lower extremity with redness and tenderness and also whi ch was warm. LABORATORY DATA: The patient had a bone scan done that was significant for cellulitis, no osteomyeli tis. ASSESSMENT AND PLAN: The patient was put on antibiotic, Tygacil, and the patient had also a consult with Dr. Yonas Smith. The patient has improved, but however, red but the infection was somewha t improved, but the leg was warm and tender. As per ID, the patient is supposed to receive 10 days o f antibiotic therapy. So the patient will be going to TCU at [facility] for IV antibioti c therapy and physical therapy. The patient will be going today. Ambrocio Ramirez MD cc: [id number] TT: 10/29/2016 23:06:14 rhina
--- NOTE | 2016-10-29 23:21 | CP.PCM.PN ---
Subjective - Date & Time of Evaluation Date of Evaluation: 10/29/16 Time of Evaluation: 23:21 - Subjective Subjective: INFECTIOUS DISEASE FOLLOW-UP 10/29/16; dICTATED .dICTATION NUMBER; [id number]. Objective - Vital Signs/Intake and Output Vital Signs (last 24 hours): Temp Pulse Resp BP Pulse Ox 98.2 F 106 H 20 102/61 97 10/29/16 16:00 10/29/16 16:00 10/29/16 16:00 10/29/16 16:00 10/29/16 16:00 Intake and Output: 10/29/16 10/30/16 18:59 06:59 Intake Total 1000 Balance 1000 - Labs Labs: 10/29/16 08:14 10/29/16 08:14 PT 20.2 SECONDS (9.7-12.2) H 10/29/16 08:14 INR 1.7 10/29/16 08:14 Assessment and Plan (1) Cellulitis of right leg Status: Acute (2) Deep venous thrombosis of lower extremity Status: Acute (3) Diabetes mellitus Status: Acute (4) Hypertension Status: Acute (5) Sleep apnea in adult Status: Acute
--- NOTE | 2016-10-30 08:43 | CON ---
DATE: 10/29/2016 HISTORY OF PRESENT ILLNESS: The patient seen and examined today, lying comfortably, states she feels better, but still complains of pain to the right lower extremity. Denies any fever, chills, nausea, or vomiting. Denies any diarrhea or crampy abdominal pain. VITAL SIGNS: Blood pressure 108/71, respirations 20, pulse of 90, temperature of 97.5. REVIEW OF SYSTEMS: No complaints except for pain in lower extremities. CARDIOVASCULAR: Denies any chest pains or palpitations. RESPIRATORY: Denies any shortness of breath or chest pain. ABDOMEN: Denies any abdominal pain or diarrhea or constipation. GENITOURINARY: Unremarkable. MEDICATIONS: As noted in the chart presently on Tygacil 50 mg q. 12 hourly started on 10/24/2016 day today. The patient also getting Neurontin 100 mg p.o. b.i.d., losartan, Cozaar 100 mg p.o. da laura, metformin, Glucophage 500 mg daily, Singulair 10 mg p.o. once a day, morphine sulfate 2 mg IV q 4 hourly p.r.n., Protonix EC 40 mg p.o. daily, Crestor 5 mg p.o. daily. The patient is on Advair Dis kus 250/50 one puff INH p.r.n. as needed, warfarin sodium 5 mg p.o. daily. PHYSICAL EXAMINATION: GENERAL: The patient is awake, alert, not in any acute distress. VITAL SIGNS: Stable. LUNGS: Fair air entry. CARDIOVASCULAR SYSTEM: S1, S2, no murmur or gallop. ABDOMEN: Soft, nontender, no masses. EXTREMITIES: Right lower extremity with some erythema and cellulitis surrounding the ulceration site , which seems to be improving. No drainage at the site of the ulcer noted both anteriorly on the henrik ns and posteriorly, but tender to touch. LABORATORY DATA: Noted. WBC 6.7, H and H of 12.1 and ____, platelets 311. Creatinine 0.8, BUN 22. Liver function tests normal. Blood cultures 10/24: Negative. Nares negative for MRSA. IMPRESSION: Cellulitis, right lower extremity with ulcers probably venous, exacerbation of chronic o bstructive pulmonary disease, history of pulmonary embolism and deep venous thrombosis. PLAN: At patient's bone scan is negative for any osseous lesions or osteomyelitis. The patient to misael cervantes Tygacil for now 50 mg q. 12 hourly for 5 days more to complete a course of 10 days. The sunita ent has MULTIPLE ALLERGIES AND CANNOT TOLERATE P.O. ANTIBIOTICS as she has a failed a trial of p.o. a ntibiotics as an outpatient. Discussed with the staff, Ms. Maynard. The patient will be going to the [facility] for IV antibiotics. Dr. Ramirez will follow the patient while in TCU. Thank you very much for allowing me to participate in the care of your patient. Yonas Smith MD cc: [id number] TT: 10/30/2016 08:42:13 Confirmation # [id number] Dictation # [id number] jn
--- NOTE | 2016-11-01 09:16 | PN ---
DATE: 10/29/2016 Today the patient is alert and awake. Denied any shortness of breath, no chest pain, no or pal pitations. The patient right leg. OBJECTIVE: VITAL SIGNS: Blood pressure of 102/61, pulse , respiration 20, temperature 98.2. NECK: Supple. No JVD. LUNGS: Clear. HEART: Regular rate and rhythm, some tachycardia at times. ABDOMEN: Soft, nontender, no palpable masses. EXTREMITIES: There is some tenderness to the right leg, which is red, warm and tender swelling . LABORATORY DATA: The patient had some blood tests done: WBC 6.7, hemoglobin 12.1, hematocrit 37.8 and platelet is 311. Chemistry showed that the sodium was 140, potassium 4.5, chloride 105, bicarb 2 4, BUN 22, creatinine 0.8 and glucose is 103. Coags showed that the PT is 20.2 and INR 1.7. PLAN: We are going to continue antibiotic therapy on the patient and and will consider dischar ging the patient to TCU at [facility]. 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 Ambrocio Ramirez MD cc: [id number] TT: 10/29/2016 21:45:22 Confirmation # [id number] Dictation # [id number] dn 11/01/2016 08:15:03
== END 2016-10-29 18:00 | DRG 603 ==
LOC: C.ER 11:28 → C.9E 16:34 → C.3T 17:18
PROVIDERS: ADMIT Specialist; ATTEND Specialist
DX: L03.115 Cellulitis of right lower limb (principal); E11.622 Type 2 diabetes mellitus with other skin ulcer; E11.40 Type 2 diabetes mellitus with diabetic neuropathy, unspecified; I10 Essential (primary) hypertension; E11.9 Type 2 diabetes mellitus without complications; D64.9 Anemia, unspecified; L97.919 Non-pressure chronic ulcer of unspecified part of right lower leg with unspecified severity; J44.1 Chronic obstructive pulmonary disease with (acute) exacerbation; I82.501 Chronic embolism and thrombosis of unspecified deep veins of right lower extremity; G47.33 Obstructive sleep apnea (adult) (pediatric); Z86.711 Personal history of pulmonary embolism; R19.7 Diarrhea, unspecified; Z87.891 Personal history of nicotine dependence; E78.00 Pure hypercholesterolemia, unspecified; Z88.0 Allergy status to penicillin; Z79.4 Long term (current) use of insulin

== ENCOUNTER 2017-01-29 12:47 | Inpatient (IN) | payer MEDICARE, MEDICAID ==
[2017-01-29 12:47] VITALS: BMI 32.4
[2017-01-29] MEDS ORDERED: Sodium Chloride 0.9% 1,000 ML IV STA (13:29)
--- NOTE | 2017-01-29 13:30 | C.PDOC ---
History Of Present Illness 61 y/o F c PMHx HTN, COPD, chronic DVT on warfarin p/w feeling ill x 3 days. Patient reports body aches, general weakness, nausea, sore throat, nonproductive cough, headache. Tmax at home 102.6. States last took acetaminophen 11 hours ago. Returned home from [place] 7 days ago. Denies chest pain, vomiting, dyspnea, stiff neck, dysuria, diarrhea, bleeding. Time Seen by Provider: 01/29/17 13:19 Chief Complaint (Nursing): Weakness/Neurological Deficit Past Medical History Vital Signs: Last Vital Signs Temp 99.3 F 01/29/17 12:51 Pulse 130 H 01/29/17 12:51 Resp 20 01/29/17 12:51 BP 113/79 01/29/17 12:51 Pulse Ox 96 01/29/17 13:42 - Medical History PMH: Anemia, Arthritis, Back Problems, COPD, Diabetes, Deep Vein Thrombosis ( chronic or rt leg), HTN, Hypercholesterolemia Denies: Chronic Kidney Disease Surgical History: Endoscopy Denies: Pacemaker - [facility] Procedures ANESTH INJECT SYMP NERVE (10/17/14) COLONOSCOPY (06/14/14) ENDO EXCISION/DEST OF LESION OR TISSUE OF STOMACH (06/14/14) EXERCISE TREATMENT OF MUSCULOSK WHOLE USING ASSIST EQUIPMENT (10/29/16) HOME MANAGEMENT TREATMENT USING ASSIST EQUIPMENT (10/29/16) INFLUENZA VACCINATION (03/22/13) NON-INVASIVE MECHANICAL VENTILATION (01/05/13) PERIPH NERVE DESTRUCTION (12/05/14) Family History: States: Unknown Family Hx - Social History Hx Tobacco Use: No Hx Alcohol Use: No Hx Substance Use: No - Immunization History Hx Tetanus Toxoid Vaccination: Yes Hx Influenza Vaccination: Yes Hx Pneumococcal Vaccination: Yes Review Of Systems Except As Marked, All Systems Reviewed And Found Negative. ENT: Negative for: Ear Pain Cardiovascular: Negative for: Chest Pain Physical Exam - Physical Exam Additional Physical Exam Comments: Constitutional: No acute distress. Head: Normocephalic. Atraumatic. Eyes: PERRL. ENT: Moist mucous membranes.Pharyngeal erythema without exudates. Neck: Supple. Cardiovascular: Regular rate. Radial pulses 2+ bilaterally. Chest: No tenderness. Respiratory: Clear to auscultation bilaterally. GI: Soft. Nontender. Nondistended. Back: No CVA tenderness. Musculoskeletal: R leg tenderness (patient states chronic since DVT diagnosis 1997) Negative Kernig/Brudzinski signs Skin: No rash. Neurologic: Alert, no focal deficit ED Course And Treatment - Laboratory Results Result Diagrams: 01/29/17 14:02 01/29/17 14:02 O2 Sat by Pulse Oximetry: 96 Medical Decision Making Medical Decision Making: Treat with IVF, Toradol, Zofran. Check labs, urine, CXR, rapid strep. HISTORY: r/o PNA COMPARISON: Chest x-ray performed 03/04/16 TECHNIQUE: Chest PA and lateral FINDINGS: Examination limited by habitus. Right-sided central venous catheter terminates at expected location of the cavoatrial junction. LUNGS: No focal consolidation. Please note that chest x-ray has limited sensitivity for the detection of pulmonary masses. PLEURA: No significant pleural effusion identified. No definite pneumothorax . CARDIOVASCULAR: Heart size appears top normal. OSSEOUS STRUCTURES: Degenerative changes. Mild curvature of the thoracolumbar spine convex to the right. VISUALIZED UPPER ABDOMEN: Unremarkable. OTHER FINDINGS: None. IMPRESSION: Right-sided central venous catheter terminates at expected location of the cavoatrial junction. Patient with leukocytosis, bands of 8, normal lactate, acute renal insufficiency , strep throat, UTI, will require IV fluids, antibiotics, close monitoring. Dr. Ramirez accepts to his service. Disposition Discussed With : Ambrocio Ramirez Doctor Will See Patient In The: Hospital - Disposition Disposition: HOSPITALIZED Disposition Time: 15:30 Condition: FAIR Forms: [facility] (Danish) - Clinical Impression Clinical Impression: UTI (urinary tract infection), Strep throat, Acute renal insufficiency, Sepsis
--- NOTE | 2017-01-29 13:41 | RAD ---
HISTORY: r/o PNA COMPARISON: Chest x-ray performed 03/04/16 TECHNIQUE: Chest PA and lateral FINDINGS: Examination limited by habitus. Right-sided central venous catheter terminates at expected location of the cavoatrial junction. LUNGS: No focal consolidation. Please note that chest x-ray has limited sensitivity for the detection of pulmonary masses. PLEURA: No significant pleural effusion identified. No definite pneumothorax . CARDIOVASCULAR: Heart size appears top normal. OSSEOUS STRUCTURES: Degenerative changes. Mild curvature of the thoracolumbar spine convex to the right. VISUALIZED UPPER ABDOMEN: Unremarkable. OTHER FINDINGS: None. IMPRESSION: Right-sided central venous catheter terminates at expected location of the cavoatrial junction.
[2017-01-29] MEDS ORDERED: Sodium Chloride 0.9% 1,000 ML ONE ×2 (13:42→21:20)
[2017-01-29 14:07] LABS: RBC URINE 11 /hpf (0-3); URINE BACTERIA RARE (<OCC); URINE BILIRUBIN NEGATIVE (NEGATIVE); URINE BLOOD 1+ (NEGATIVE); URINE COLOR Amber (YELLOW); URINE GLUCOSE (UA) NORMAL (Normal); URINE KETONE NEGATIVE (NEGATIVE); URINE LEUKOCYTE ESTERASE 3+ Leu/uL (Negative); URINE PROTEIN 2+ mg/dL (NEGATIVE); URINE UROBILINOGEN NORMAL mg/dL (0.2-1.0); WBC URINE 57 /hpf (0-5)
[2017-01-29 14:09] LABS: BASO # 0.1 K/uL (0.0-0.2); BASO % 0.4 % (0.0-2.0); EOS # 0.1 K/uL (0.0-0.7); EOS % 0.4 % (0.0-4.0); HEMATOCRIT 39.9 % (34.0-47.0); LYMPH # 1.5 K/uL (1.0-4.3); LYMPH % 8.1 % (20.0-40.0); MEAN CELL VOLUME 84.5 fL (81.0-99.0); MONO # 1.7 K/uL (0.0-0.8); MONO % 9.3 % (0.0-10.0); PLATELET COUNT 263 K/uL (130-400)
[2017-01-29 14:18] LABS: WHITE BLOOD COUNT 18.3 K/uL (4.8-10.8)
[2017-01-29 14:19] LABS: POTASSIUM 3.1 mmol/L (3.6-5.2)
[2017-01-29 14:22] LABS: ALB/GLOB RATIO 1.1 (1.0-2.1); BILIRUBIN,TOTAL 0.6 mg/dL (0.2-1.3); INR 2.7; TOTAL PROTEIN 7.9 g/dL (6.3-8.3)
[2017-01-29 14:23] LABS: CALCIUM 9.2 mg/dl (8.6-10.4)
[2017-01-29 14:43] LABS: NEUTROPHIL 70 % (50-75); TOTAL CELLS COUNTED 100
[2017-01-29 14:47] LABS: VENOUS BLOOD GAS BASE EXCESS 3.7 mmol/L (0.0-2.0); VENOUS BLOOD GAS PCO2 49 mmHg (40-60); VENOUS BLOOD PH 7.39 (7.32-7.43)
[2017-01-29] MEDS ORDERED: Ciprofloxacin 400mg/200ml D5W 400 MG/200 ML BAG IVPB STA (15:41)
[2017-01-29] MEDS ORDERED: Ciprofloxacin 400mg/200ml D5W 400 MG/200 ML BAG IVPB ONE (15:49)
[2017-01-29] MEDS: Sodium Chloride 0.9% 1,000 ML IV SCH (21:32)
--- NOTE | 2017-01-29 21:49 | CP.PCM.CON ---
History of Present Illness - History of Present Illness History of Present Illness: History of Present Illness: .61-year-old female with history off HTN, COPD,obstructive sleep apnea, diabetes mellitus type 2, chronic DVT on warfarin and history of IVC filter who came to the emergency room complaining of not being well for the past 3 days. Patient reports body aches, sore throat, nonproductive cough, generalized weakness, headache and not feeling herself. Patient states she had a temperature of 102.6 at home when she took acetaminophen 11 hours ago. Patient states she was in [place] for 3 weeks and returned home about a week ago. Patient denies any vomiting, neck stiffness, chest pain, abdominal pain, diarrhea or dysuria. Patient was seen in the ER and was found also to have leukocytosis of 18.3 with INR of 2.7 and PTT of 72. In the ER patient throat was found to be positive for group A beta-hemolytic strep Antigen. Also urinalysis was hazy with 3+ leukocytes and 57 WBCs and 11 RBCs. Patient was appropriately cultured and started on IV Cipro as noted. Patient denies any rash or arthralgias. Patient denies being sick in [place],RECENT TRAVEL Patient has multiple allergies as noted. INFECTIOUS DISEASE CONSULTATION REQUESTED BY DR. RHODES [facility];as above. Social history. Ex-smoker. Denies drinking. Allergies. Penicillin, vancomycin, clindamycin, latex, adhesive , shellfish. Patient is able to tolerate AZACTAM, AND TYGACIL. FAMILY HISTORY; NONCONTRIBUTORY 6 Review of Systems - Constitutional Constitutional: Fatigue, Fever, Headache, Malaise - EENT Eyes: absent: Change in Vision Ears: absent: Ear Pain Nose/Mouth/Throat: Sore Throat - Cardiovascular Cardiovascular: absent: Chest Pain, Dyspnea - Respiratory Respiratory: Cough (non productive.). absent: Hemoptysis - Gastrointestinal Gastrointestinal: Nausea. absent: Abdominal Pain, Diarrhea, Vomiting - Genitourinary Genitourinary: Pyuria. absent: Hematuria - Musculoskeletal Musculoskeletal: absent: Arthralgias - Neurological Neurological: Headaches. absent: Dizziness - Endocrine Endocrine: Fatigue - Hematologic/Lymphatic Hematologic: As Per HPI Past Patient History - Infectious Disease Hx of Infectious Diseases: MRSA - Past Medical History & Family History Past Medical History?: Yes - Past Social History Smoking Status: Never Smoked - CARDIAC Hx Hypercholesterolemia: Yes Hx Hypertension: Yes Hx Pacemaker: No - PULMONARY Hx Chronic Obstructive Pulmonary Disease (COPD): Yes - NEUROLOGICAL Hx Neurological Disorder: No - HEENT Hx HEENT Problems: No - RENAL Hx Chronic Kidney Disease: No - ENDOCRINE/METABOLIC Hx Diabetes Mellitus Type 2: Yes - HEMATOLOGICAL/ONCOLOGICAL Hx Anemia: Yes - INTEGUMENTARY Hx Dermatological Problems: No - MUSCULOSKELETAL/RHEUMATOLOGICAL Hx Arthritis: Yes - GASTROINTESTINAL Hx Gastrointestinal Disorders: Yes Hx Gastroesophageal Reflux: Yes - GENITOURINARY/GYNECOLOGICAL Hx Genitourinary Disorders: No - PSYCHIATRIC Hx Substance Use: No - SURGICAL HISTORY Other/Comment: Fibroids/Adhesions removal. Bladder Sx - ANESTHESIA Hx Anesthesia: Yes Hx Anesthesia Reactions: No Hx Malignant Hyperthermia: No Meds Allergies/Adverse Reactions: Allergies Allergy/AdvReac Type Severity Reaction Status Date / Time adhesive tape Allergy RASH Verified 01/29/17 12:54 clindamycin Allergy RASH Verified 01/29/17 12:54 Latex, Natural Rubber Allergy RASH Verified 01/29/17 12:54 Penicillins Allergy RASH Verified 01/29/17 12:54 shellfish derived Allergy RASH Verified 01/29/17 12:54 vancomycin Allergy RASH Verified 01/29/17 12:54 - Medications Medications: Current Medications Albuterol Sulfate (Albuterol 0.083% Inhal Marilou (2.5 Mg/3 Ml) Ud) 2.5 mg INH RTID PRN PRN Reason: Shortness of Breath Gabapentin (Neurontin) 100 mg PO BID [facility] Ciprofloxacin (Cipro 400mg/200ml Dsw) 400 mg in 200 mls @ 133 mls/hr IVPB Q12H [facility] Sodium Chloride (Sodium Chloride 0.9%) 1,000 mls @ 80 mls/hr IV .[id number] [facility] Last Admin: 01/29/17 21:32 Dose: 80 mls/hr Insulin Aspart (Novolog) 0 unit SC ACHS [facility] PRN Reason: Protocol Losartan Potassium (Cozaar) 100 mg PO DAILY [facility] Metformin HCl (Glucophage) 500 mg PO ACB [facility] Montelukast Sodium (Singulair) 10 mg PO HS [facility] Pantoprazole Sodium (Protonix Ec Tab) 40 mg PO DAILY [facility] Rosuvastatin Calcium (Crestor) 5 mg PO HS [facility] Fluticasone/Salmeterol (Advair Diskus 250/50) 1 puff INH RQD [facility] Physical Exam - Constitutional Appears: No Acute Distress - Head Exam Head Exam: NORMAL INSPECTION - Eye Exam Eye Exam: EOMI, PERRL - ENT Exam ENT Exam: Mucous Membranes Dry (throat and tonsils congested. No exudates noted.), Normal External Ear Exam - Neck Exam Neck exam: Positive for: Lymphadenopathy (submandibular and bilateral tender cervical lymphadenopathy.), Normal Inspection. Negative for: Meningismus - Respiratory Exam Respiratory Exam: Clear to Auscultation Bilateral, NORMAL BREATHING PATTERN - Cardiovascular Exam Cardiovascular Exam: REGULAR RHYTHM, +S1, +S2 - GI/Abdominal Exam GI & Abdominal Exam: Normal Bowel Sounds, Soft. absent: Organomegaly - Extremities Exam Extremities exam: Positive for: pedal pulses present. Negative for: calf tenderness, pedal edema - Neurological Exam Neurological exam: Alert, CN II-XII Intact, Oriented x3 - Psychiatric Exam Psychiatric exam: Normal Mood - Skin Skin Exam: Normal Color, Warm Results - Vital Signs Recent Vital Signs: Last Vital Signs Temp 98.7 F 01/29/17 18:14 Pulse 104 H 01/29/17 20:50 Resp 20 01/29/17 20:50 BP 97/52 L 01/29/17 20:50 Pulse Ox 95 01/29/17 20:50 - Labs Result Diagrams: 01/29/17 14:02 01/29/17 14:02 Labs: Laboratory Results - last 24 hr 01/29/17 21:35 POC Glucose (mg/dL) 106 - Imaging and Cardiology Chest x-ray Status: Report reviewed by me (right-sided CVC. No infiltrate) Assessment & Plan (1) Sepsis Assessment and Plan: SOURCE OF SEPSIS MOST LIKELY GROUP A TONSILLOPHARYNGITIS / ? UTI pATIENT HAS GROUP A BETA-HEMOLYTIC STREP ANTIGEN POSITIVE START iv tYGACIL 100 MG LOADING DOSE, FOLLOWED BY 01/29/17. F/U WITH 50 MG iv tYGACIL EVERY 12 HOURLY. cONTINUE iv cIPRO 400 EVERY 12 HOURLY. 01/29/17. PATIENT HAS ALLERGY TO PENICILLIN, CLINDAMYCIN. Status: Acute (2) Strep throat Assessment and Plan: PATIENT HAS STREP GROUP A BETA-HEMOLYTIC ANTIGEN POSITIVE. Status: Acute (3) UTI (urinary tract infection) Assessment and Plan: CONTINUE iv cIPRO 400 EVERY 12 HOURLY.01/29/17. FOLLOW-UP URINE CULTURES tO ADJUST ANTIBIOTICS. Status: Acute (4) Deep venous thrombosis of lower extremity Assessment and Plan: +ve IVC FILTER. PATIENT ALSO ON WARFARIN PER PMD. Status: Acute (5) Diabetes mellitus Status: Acute (6) Hypertension Status: Acute
[2017-01-29] MEDS: (Novolog) Insulin Aspart, Recombinant 100 u/ml 10 ml vial SC SCH (22:02)
[2017-01-30] MEDS: Ciprofloxacin 400mg/200ml D5W 400 MG/200 ML BAG IVPB SCH ×2 (02:08→14:36)
[2017-01-30] MEDS: (Novolog) Insulin Aspart, Recombinant 100 u/ml 10 ml vial SC SCH ×4 (06:43→22:02)
[2017-01-30] MEDS: Fluticasone-Salmeterol 250-50mcg Diskus INH SCH (07:38)
[2017-01-30] MEDS: Albuterol 0.083% Inhal Sol (2.5 mg/3 mL) UD INH PRN ×2 (07:38→19:29)
[2017-01-30 07:55] LABS: BASO % 0.4 % (0.0-2.0); EOS # 0.1 K/uL (0.0-0.7); EOS % 0.6 % (0.0-4.0); HEMATOCRIT 34.7 % (34.0-47.0); LYMPH # 1.4 K/uL (1.0-4.3); LYMPH % 11.8 % (20.0-40.0); MEAN CELL VOLUME 84.9 fL (81.0-99.0); MEAN CORPUSCULAR HEMOGLOBIN 26.9 pg (27.0-31.0); MEAN CORPUSCULAR HGB CONC 31.7 g/dL (33.0-37.0); MEAN PLATELET VOLUME 8.4 fL (7.2-11.7); MONO # 1.4 K/uL (0.0-0.8); MONO % 11.7 % (0.0-10.0); RED CELL DISTRIBUTION WIDTH 13.6 % (11.5-14.5); WHITE BLOOD COUNT 11.7 K/uL (4.8-10.8)
[2017-01-30 08:07] LABS: POTASSIUM 3.4 mmol/L (3.6-5.2)
[2017-01-30 08:09] LABS: BILIRUBIN,TOTAL 0.5 mg/dL (0.2-1.3)
[2017-01-30 08:10] LABS: CALCIUM 8.4 mg/dl (8.6-10.4); TOTAL PROTEIN 6.6 g/dL (6.3-8.3)
[2017-01-30] MEDS: Pantoprazole 40 mg EC Tab PO SCH (10:21)
[2017-01-30] MEDS: Sodium Chloride 0.9% 1,000 ML IV SCH ×2 (10:22→22:53)
[2017-01-30] MEDS: Potassium Chloride 20 mEq ER Tab PO SCH (18:14)
[2017-01-30] MEDS: Promethazine DM 6.25 mg-15 mg/5 ml Syrup PO SCH ×2 (18:16→22:52)
[2017-01-31] MEDS: Sodium Chloride 0.9% 1,000 ML IV SCH ×3 (02:08→21:00)
[2017-01-31] MEDS: Ciprofloxacin 400mg/200ml D5W 400 MG/200 ML BAG IVPB SCH ×2 (03:12→14:45)
[2017-01-31] MEDS: Promethazine DM 6.25 mg-15 mg/5 ml Syrup PO SCH ×3 (06:19→22:44)
[2017-01-31 07:34] LABS: BASO % 0.5 % (0.0-2.0); EOS # 0.1 K/uL (0.0-0.7); EOS % 1.4 % (0.0-4.0); HEMATOCRIT 36.1 % (34.0-47.0); LYMPH # 1.2 K/uL (1.0-4.3); LYMPH % 14.8 % (20.0-40.0); MEAN CORPUSCULAR HEMOGLOBIN 27.2 pg (27.0-31.0); MEAN PLATELET VOLUME 8.5 fL (7.2-11.7); MONO # 1.1 K/uL (0.0-0.8); MONO % 13.5 % (0.0-10.0); RED CELL DISTRIBUTION WIDTH 13.9 % (11.5-14.5); WHITE BLOOD COUNT 8.3 K/uL (4.8-10.8)
[2017-01-31 07:40] LABS: INR 2.5
[2017-01-31] MEDS: Fluticasone-Salmeterol 250-50mcg Diskus INH SCH (07:46)
[2017-01-31] MEDS: Albuterol 0.083% Inhal Sol (2.5 mg/3 mL) UD INH PRN ×2 (07:47→13:30)
[2017-01-31 08:06] LABS: CHLORIDE 101 mmol/L (98-107)
[2017-01-31 08:07] LABS: POTASSIUM 3.2 mmol/L (3.6-5.2); SODIUM 140 mmol/L (132-148)
[2017-01-31 08:09] LABS: GFR AFRICAN-AMERICAN > 60
[2017-01-31 08:10] LABS: ALKALINE PHOSPHATASE 73 U/L (38-126); ALT/SGPT 48 U/L (9-52); AST/SGOT 28 U/L (14-36); BILIRUBIN,TOTAL 0.4 mg/dL (0.2-1.3); BLOOD UREA NITROGEN 18 mg/dL (7-17); CALCIUM 8.6 mg/dl (8.6-10.4); CARBON DIOXIDE 30 mmol/L (22-30); GLUCOSE,RANDOM 119 mg/dL (65-105); TOTAL PROTEIN 6.8 g/dL (6.3-8.3)
[2017-01-31] MEDS ORDERED: Potassium Chloride 20 mEq ER Tab PO ONE (09:02)
[2017-01-31] MEDS: Pantoprazole 40 mg EC Tab PO SCH (10:08)
[2017-01-31] MEDS: Potassium Chloride 20 mEq ER Tab PO SCH (10:12)
[2017-01-31] MEDS: (Novolog) Insulin Aspart, Recombinant 100 u/ml 10 ml vial SC SCH ×4 (11:01→22:24)
--- NOTE | 2017-01-31 14:01 | CP.PCM.PN ---
Subjective - Date & Time of Evaluation Date of Evaluation: 01/31/17 Time of Evaluation: 14:01 - Subjective Subjective: CHIEF COMPLAINTS TODAY : TEMPERATURE DOWN. C/O sore throat. Cough+ve dry ROS HEENT : N. +VE CONGESTED WITH ENLARGED TONSILS. Resp : No SOB wheezing, +ve cough Cardio : No CP, PND orthopnea GI : No abd. Pain, n/v LANGUAGES AND LITERATURE INSTRUCTOR : No headache , focal deficit. Musculoskel : N Ext. : Pedal pulses intact, no edema or calf pain Derm : N Psych : N. PE. Pt. is alert awake in no distress. V.S As noted in the chart Head ,ear nose,THROAT CONGESTED AND ENLARGED TONSILS./nO EXUDATES. Neck : Supple with normal carotids. Lungs: PROLONGED EXPIRATORY PHASE. Heart : S1 & S2 normal . . No murmur. S4 + Abd : Soft non tender with normal bowel sounds. Neuro : Moves all ext. with no localized deficit. Ext : No edema with intact pulses. Neg. calf tenderness Derm : No rashes or decubitus ulcer. Radiology/Labs . wbc IMPROVING 8.3 inr 2.5 K 3.2 LFTS OK BLOOD CULTURES -VE DATE tHROAT CULTURES -VE STREP GROUP A. uRINE CULTURE +VE STREPTOCOCCOSIS AGALACTIAE . Asssessment : SEPSIS HYPERPYREXIA/HYPOTENSION ACUTE PHARYNGITIS/TRACHEITIS. UROSEPSIS. HX PE/DVT +VE IVC FILTER/ON COUMADIN DM HTN Plan : CONTINUE iv TYGACIL 50 MG EVERY 12 HOURLY.01/30 FOR TOTAL OF 5 DAYS CONTINUE iv CIPRO 400 MG EVERY 12 HOURLY FOR PSEUDOMONAL COVERAGE. 01/29 X 10 DAYS F/U CULTURES TO ADJUST ANTIBIOTICS. pOTASSIUM SUPPLEMENT PER pmd. Objective - Vital Signs/Intake and Output Vital Signs (last 24 hours): Temp Pulse Resp BP Pulse Ox 98.3 F 20 L 84 H 125/72 97 01/31/17 08:12 01/31/17 08:12 01/31/17 08:12 01/31/17 08:12 01/31/17 08:12 Intake and Output: 01/31/17 01/31/17 06:59 18:59 Intake Total 1380 Balance 1380 - Medications Medications: Current Medications Albuterol Sulfate (Albuterol 0.083% Inhal Marilou (2.5 Mg/3 Ml) Ud) 2.5 mg INH RTID PRN PRN Reason: Shortness of Breath Last Admin: 01/31/17 13:30 Dose: 2.5 mg Gabapentin (Neurontin) 100 mg PO BID [facility] Last Admin: 01/31/17 10:08 Dose: 100 mg Ciprofloxacin (Cipro 400mg/200ml Dsw) 400 mg in 200 mls @ 133 mls/hr IVPB Q12H [facility] Last Admin: 01/31/17 03:12 Dose: 133 mls/hr Sodium Chloride (Sodium Chloride 0.9%) 1,000 mls @ 80 mls/hr IV .[id number] [facility] Last Admin: 01/31/17 12:42 Dose: Not Given Tigecycline 50 mg/ Sodium (Chloride) 100 mls @ 100 mls/hr IVPB Q12H [facility] Last Admin: 01/31/17 13:19 Dose: 100 mls/hr Insulin Aspart (Novolog) 0 unit SC ACHS [facility] PRN Reason: Protocol Last Admin: 01/31/17 13:16 Dose: 1 unit Losartan Potassium (Cozaar) 100 mg PO DAILY [facility] Last Admin: 01/31/17 10:09 Dose: 100 mg Metformin HCl (Glucophage) 500 mg PO ACB [facility] Last Admin: 01/31/17 10:12 Dose: 500 mg Montelukast Sodium (Singulair) 10 mg PO HS [facility] Last Admin: 01/30/17 22:53 Dose: 10 mg Pantoprazole Sodium (Protonix Ec Tab) 40 mg PO DAILY [facility] Last Admin: 01/31/17 10:08 Dose: 40 mg Potassium Chloride (K-Dur 20 Meq Er Tab) 20 meq PO DAILY [facility] Last Admin: 01/31/17 10:12 Dose: 20 meq Promethazine HCl/Dextromethorphan (Phenergan Dm Syrup) 5 ml PO Q8 [facility] Last Admin: 01/31/17 13:18 Dose: 5 ml Rosuvastatin Calcium (Crestor) 5 mg PO HS [facility] Last Admin: 01/30/17 22:53 Dose: 5 mg Fluticasone/Salmeterol (Advair Diskus 250/50) 1 puff INH RQD [facility] Last Admin: 01/31/17 07:46 Dose: Not Given Warfarin Sodium (Coumadin) 4 mg PO 1800 [facility] Stop: 01/31/17 18:01 - Labs Labs: 08/21/17 07:21 01/31/17 07:21 PT 30.1 SECONDS (9.7-12.2) H* 01/31/17 07:21 INR 2.5 D 01/31/17 07:21 APTT 72 SECONDS (21-34) H 01/29/17 14:02 Assessment and Plan (1) Sepsis Status: Acute (2) Strep throat Status: Acute (3) UTI (urinary tract infection) Status: Acute (4) Deep venous thrombosis of lower extremity Status: Acute (5) Diabetes mellitus Status: Acute (6) Hypertension Status: Acute
--- NOTE | 2017-01-31 15:30 | CARD ---
APPROVED REPORT EXAM: Two-dimensional and M-mode echocardiogram with Doppler and color Doppler. Other Information Quality : GoodRhythm : Tachycardia INDICATION COPD SEPSIS RISK FACTORS Hypertension Diabetes M-Mode DIMENSIONS RVDd1.29 (2.1-3.2cm)Left Atrium (MM)3.67 (2.5-4.0cm) IVSd0.74 (0.7-1.1cm)Aortic Root2.46 (2.2-3.7cm) LVDd4.88 (4.0-5.6cm)Aortic Cusp Exc.1.56 (1.5-2.0cm) PWd0.94 (0.7-1.1cm)FS (%) 23 % LVDs3.75 (2.0-3.8cm)LVEF (%)55 (>50%) Mitral Valve MV E Xajuqpfc66.5cm/sMV A Jwfnjtrs14.5cm/sE/A ratio0.8 TDI E/Lateral E'0.0E/Medial E'0.0 Tricuspid Valve TR Peak [id number]/sTR Peak [id number] LEFT VENTRICLE The left ventricle is normal size. There is normal left ventricular wall thickness. The left ventricular systolic function is normal. The left ventricular ejection fraction is within the normal range. There is normal LV segmental wall motion. Transmitral Doppler flow pattern is Grade I-abnormal relaxation pattern. RIGHT VENTRICLE The right ventricle is normal size. The right ventricular systolic function is normal. ATRIA The left atrium size is normal. The right atrium size is normal. AORTIC VALVE The aortic valve is normal in structure. No aortic regurgitation is present. MITRAL VALVE The mitral valve is normal in structure. There is no mitral valve regurgitation noted. TRICUSPID VALVE The tricuspid valve is normal in structure. There is trace tricuspid regurgitation. PULMONIC VALVE The pulmonary valve is normal in structure. GREAT VESSELS The aortic root is normal in size. The IVC is normal in size and collapses >50% with inspiration. PERICARDIAL EFFUSION There is no pericardial effusion. <Conclusion> The left ventricular systolic function is normal. There is normal LV segmental wall motion. Transmitral Doppler flow pattern is Grade I-abnormal relaxation pattern. The right ventricular systolic function is normal. No significant valvular abnormality noted. There is no pericardial effusion.
--- NOTE | 2017-02-01 02:45 | CON ---
DATE: REASON FOR CONSULTATION: Sinus tachycardia. HISTORY OF PRESENT ILLNESS: The patient is a 61 years old -[place] female, originally from [facility], who has a history of hypertension, right leg DVT, COPD, recently arrived from [facility] on the of this month and has been experiencing weakness, cough, sore throat, and headache. The patient has a history of Port-A-Cath placement in 2013. The patient denies retrosternal chest pain. The patient was noted to be tachycardic on the monitor. The patient did report palpitation and dizziness. The patient is being treated for sepsis as well as urinary tract infection. SOCIAL HISTORY: Nonsmoker and nondrinker. MEDICATIONS: Advair 1 puff once a day, albuterol inhaler, IV Cipro at 400 mg q. 12 hours, Coumadin 4 mg once a day, Cozaar 100 mg once a day, Crestor at 5 mg once a day, metformin 500 mg daily, K-Dur 20 mEq daily, Neurontin 100 mg twice a day, Protonix 40 mg p.o. once a day, Singulair 10 mg p.o. at bedtime, normal saline 80 mL an hour, and tigecycline at 50 mg intravenous q. 12 hours. REVIEW OF SYSTEMS: The patient denies any chills. The patient denies any vomiting or diarrhea. The patient denies any retrosternal chest pain. PHYSICAL EXAMINATION: GENERAL: The patient is a middle-aged female who does not appear to be in acute distress. VITAL SIGNS: Blood pressure 125/72, heart rate 100, temperature 98.3. HEENT: Normocephalic. NECK: No JVD. CHEST: Clear. HEART: S1, S2 regular. ABDOMEN: Soft. EXTREMITIES: Trace right leg edema. No calf tenderness. LABORATORY DATA: Hemoglobin and hematocrit 11.6 and 36.1, white count and platelet count are 8.4 and 267,000. On admission, white count was 18.3. INR on admission was 2.7 and yesterday was 3.0. SMA-7; sodium 140, potassium 3.2, chloride 101, CO2 30, glucose 119, BUN 18, creatinine 0.8. Chest x-ray revealed right-sided central venous catheter and prominent bronchovesicular markings. No infiltrate or effusion. EKG revealed sinus rhythm at a rate of 97, right bundle-branch block, nonspecific anterior Q wave changes. Urine cultures positive for Streptococcus agalactiae group B. Blood culture negative as of 24 hours. ASSESSMENT: 1. Sinus tachycardia, rule out underlying sepsis. Sinus tachycardia in itself with physiologic response and not primary disease. 2. Urinary tract infection. 3. Consider upper respiratory tract infection. 4. History of right leg deep venous thrombosis. The patient's INR is therapeutic unless the patient has a lupus anticoagulant assay and the test where INR has to be higher than 2.5. 5. Hypertension and diabetes mellitus. 6. Chronic obstructive lung disease. CONDITIONS: Continue current bronchodilators. Continue Coumadin at 4 mg once a day, Cozaar 100 mg once a day, Crestor 5 mg once a day. The patient did refuse K-Dur 20 mEq orally now. I will continue K-Dur 20 mEq orally daily. Follow up BNP in a.m. I reviewed the echocardiography study, which I requested yesterday. Cornel Kenny MD
--- NOTE | 2017-02-01 02:51 | PN ---
SUBJECTIVE: Today, the patient is alert and awake, complaining of congestive cough. No shortness of breath or either sputum. No chest pain. The patient has no constipation. PHYSICAL EXAMINATION VITAL SIGNS: Blood pressure is 120/79, pulse 96, respirations 20 and temperature is 98.1. HEENT: Head is normocephalic. Throat: Some redness in the site. LUNGS: Clear. HEART: Regular rate and rhythm, positive murmur. ABDOMEN: Soft, nontender, positive bowel sounds. EXTREMITIES: There is tenderness in the left leg. LABORATORY DATA: The patient has some blood tests done and has WBC 8.3, hemoglobin 11.6, hematocrit 36.1 and platelets 267. Chemistry; sodium 140, potassium 3.2, chloride 101, bicarb 30, BUN 18, creatinine 0.8, glucose 119, albumin 3.4, AST is 28, ALT is 48, alkaline phosphatase 73 and total protein 6.3. ASSESSMENT AND PLAN: We are going to continue antibiotic therapy. The patient has microbiology positive for Streptococcus agalactiae group B, so the patient received *------* and we are going to continue the medications and we will consider discharge when agreed by ID. We are going to replace the potassium and Coumadin will be ordered. Ambrocio Ramirez MD
[2017-02-01] MEDS: Ciprofloxacin 400mg/200ml D5W 400 MG/200 ML BAG IVPB SCH ×2 (04:01→14:58)
[2017-02-01] MEDS: Promethazine DM 6.25 mg-15 mg/5 ml Syrup PO SCH ×3 (05:57→22:06)
[2017-02-01 06:55] LABS: MEAN CELL VOLUME 84.8 fL (81.0-99.0); MEAN CORPUSCULAR HEMOGLOBIN 27.9 pg (27.0-31.0); MEAN CORPUSCULAR HGB CONC 32.9 g/dL (33.0-37.0); MEAN PLATELET VOLUME 8.3 fL (7.2-11.7); RED CELL DISTRIBUTION WIDTH 13.6 % (11.5-14.5); WHITE BLOOD COUNT 7.6 K/uL (4.8-10.8)
[2017-02-01 07:08] LABS: INR 1.9
[2017-02-01] MEDS: Fluticasone-Salmeterol 250-50mcg Diskus INH SCH (07:38)
[2017-02-01] MEDS: (Novolog) Insulin Aspart, Recombinant 100 u/ml 10 ml vial SC SCH ×4 (07:45→21:36)
[2017-02-01 07:52] LABS: CHLORIDE 104 mmol/L (98-107); POTASSIUM 3.4 mmol/L (3.6-5.2); SODIUM 141 mmol/L (132-148)
[2017-02-01 07:54] LABS: GFR AFRICAN-AMERICAN > 60
[2017-02-01 07:55] LABS: BLOOD UREA NITROGEN 14 mg/dL (7-17); CARBON DIOXIDE 28 mmol/L (22-30); GLUCOSE,RANDOM 123 mg/dL (65-105)
[2017-02-01 07:56] LABS: CALCIUM 8.6 mg/dl (8.6-10.4)
[2017-02-01 08:02] LABS: RBC URINE 2 /hpf (0-3); URINE BACTERIA RARE (<OCC); URINE BILIRUBIN NEGATIVE (NEGATIVE); URINE BLOOD NEGATIVE (NEGATIVE); URINE COLOR Straw (YELLOW); URINE GLUCOSE (UA) NORMAL (Normal); URINE KETONE NEGATIVE (NEGATIVE); URINE LEUKOCYTE ESTERASE NEG Leu/uL (Negative); URINE PROTEIN NEGATIVE (NEGATIVE); URINE UROBILINOGEN NORMAL mg/dL (0.2-1.0); WBC URINE 3 /hpf (0-5)
--- NOTE | 2017-02-01 08:14 | HP ---
HISTORY OF PRESENT ILLNESS: The patient is a 61-year-old female with an issue of hypertension, COPD, chronic DVT on warfarin and hyperlipidemia. The patient was complaining of body aches, weakness, nausea and also sore throat and also complaining of nonproductive cough. The patient was found to have a temperature of 102.5 at home and she was just taking medication like acetaminophen for the fever. The patient was evaluated urgently in the emergency room and was admitted. ALLERGIES: THE PATIENT IS ALLERGIC TO PENICILLIN AND ALSO ALLERGIC TO VANCOMYCIN AND CLINDAMYCIN. SOCIAL HISTORY: The patient lives with and children. FAMILY HISTORY: No inherited disease. PAST MEDICAL HISTORY: A history of anemia, arthritis, COPD, diabetes, chronic DVT, hyperlipidemia, and also hypertension. REVIEW OF SYSTEMS: RESPIRATORY: Recurrent cough with yellowish sputum. CARDIOVASCULAR: The patient is denying chest pain, but has palpitations. GASTROINTESTINAL: Some epigastric discomfort. GENITOURINARY: No dysuria. NEUROLOGIC: The patient feeling weak, ------ left leg and back. PHYSICAL EXAMINATION: GENERAL: The patient is alert, awake, and oriented x3. VITAL SIGNS: Blood pressure is somewhat low at 91/52, and pulse 102, respiration rate is 20, and temperature 98.5. NECK: Supple. No JVD. LUNGS: Did have some rhonchi. HEART: Tachycardic at times about 85 to 90, but mostly 100 plus. ABDOMEN: Soft, mild epigastric tenderness. EXTREMITIES: There is some tenderness in left lower extremity in the setting of recurrent DVT. LABORATORY DATA: The patient's blood work has had on admission WBC was 18.3, hemoglobin 12.8, hematocrit 39.9, and platelet is at 263. Now, WBC 11.7 today and hemoglobin 11, hematocrit 34.7, and platelet 228. Chemistries showed sodium 136, potassium 3.1, chloride 93, bicarb is 29, BUN 13, creatinine 1.3, glucose 141, alkaline phosphatase is 75, albumin 4.1, bilirubin 3.9, AST is 19, ALT is10 today. The sodium 136, potassium 3.4, chloride 97, BUN 20, creatinine 1.4 and glucose is 84. IMAGING: The patients's EKG has sinus tachycardia and fascicular block, right bundle-branch block, and severe inferior ischemia of indeterminate age. The patient had a chest x-ray and did not show focal consolidation in the lungs. PLAN: 1. The plan is the patient will be put on antibiotic therapy ------. Also, we are going to consult ------ for evaluation of the abnormal EKG ------ 2. Tachycardia and rule out EKG, rule out ischemic left CKD, diabetes, hypertension, chronic DVT, and obesity. The patient will have a consult with ----- and an echocardiogram and also ------. Ambrocio Ramirez MD
[2017-02-01] MEDS: Pantoprazole 40 mg EC Tab PO SCH (09:55)
[2017-02-01] MEDS: Potassium Chloride 20 mEq ER Tab PO SCH (09:56)
[2017-02-01] MEDS: Sodium Chloride 0.9% 1,000 ML IV SCH (11:36)
[2017-02-01] MEDS: Albuterol 0.083% Inhal Sol (2.5 mg/3 mL) UD INH PRN (13:29)
--- NOTE | 2017-02-01 13:32 | CP.PCM.PN ---
Subjective - Date & Time of Evaluation Date of Evaluation: 02/01/17 Time of Evaluation: 13:32 - Subjective Subjective: CHIEF COMPLAINTS TODAY : TEMPERATURE DOWN. c/o some abdominal discomfort ? abx throat better ROS HEENT : N. +VE CONGESTED WITH ENLARGED TONSILS. Resp : No SOB wheezing, +ve cough Cardio : No CP, PND orthopnea GI : No abd. 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 Musculoskel : N Ext. : Pedal pulses intact, no edema or calf pain Derm : N Psych : N. PE. Pt. is alert awake in no distress. V.S As noted in the chart Head ,ear nose,THROAT CONGESTED AND ENLARGED TONSILS./nO EXUDATES. Neck : Supple with normal carotids. Lungs: PROLONGED EXPIRATORY PHASE. Heart : S1 & S2 normal . . No murmur. S4 + Abd : Soft non tender with normal bowel sounds. Neuro : Moves all ext. with no localized deficit. Ext : No edema with intact pulses. Neg. calf tenderness Derm : No rashes or decubitus ulcer. Radiology/Labs . wbc IMPROVING 7.6 inr 1.9 K 3.4 LFTS OK BLOOD CULTURES -VE DATE tHROAT CULTURES -VE STREP GROUP A. uRINE CULTURE +VE STREPTOCOCCOSIS AGALACTIAE . Asssessment : SEPSIS HYPERPYREXIA/HYPOTENSION ACUTE PHARYNGITIS/TRACHEITIS. UROSEPSIS. HX PE/DVT +VE IVC FILTER/ON COUMADIN DM HTN Plan : CONTINUE iv TYGACIL 50 MG EVERY 12 HOURLY.01/30 till 02/04/17 DC iv CIPRO F/U URINE CULTURES POTASSIUM SUPPLEMENT PER PMD WILL DISCUSS WITH PMD. Objective - Vital Signs/Intake and Output Vital Signs (last 24 hours): Temp Pulse Resp BP Pulse Ox 98.3 F 80 18 128/74 98 02/01/17 07:20 02/01/17 07:20 02/01/17 07:20 02/01/17 07:20 02/01/17 07:20 Intake and Output: 02/01/17 02/01/17 06:59 18:59 Intake Total 1430 Balance 1430 - Medications Medications: Current Medications Albuterol Sulfate (Albuterol 0.083% Inhal Marilou (2.5 Mg/3 Ml) Ud) 2.5 mg INH RTID PRN PRN Reason: Shortness of Breath Last Admin: 02/01/17 13:29 Dose: 2.5 mg Gabapentin (Neurontin) 100 mg PO BID [facility] Last Admin: 02/01/17 09:55 Dose: 100 mg Ciprofloxacin (Cipro 400mg/200ml Dsw) 400 mg in 200 mls @ 133 mls/hr IVPB Q12H [facility] Last Admin: 02/01/17 04:01 Dose: 133 mls/hr Sodium Chloride (Sodium Chloride 0.9%) 1,000 mls @ 80 mls/hr IV .[id number] [facility] Last Admin: 02/01/17 11:36 Dose: 80 mls/hr Tigecycline 50 mg/ Sodium (Chloride) 100 mls @ 100 mls/hr IVPB Q12H [facility] Last Admin: 02/01/17 02:10 Dose: 100 mls/hr Insulin Aspart (Novolog) 0 unit SC ACHS [facility] PRN Reason: Protocol Last Admin: 02/01/17 12:20 Dose: 1 unit Losartan Potassium (Cozaar) 100 mg PO DAILY [facility] Last Admin: 02/01/17 09:55 Dose: 100 mg Metformin HCl (Glucophage) 500 mg PO ACB [facility] Last Admin: 02/01/17 09:57 Dose: 500 mg Montelukast Sodium (Singulair) 10 mg PO HS [facility] Last Admin: 01/31/17 22:44 Dose: 10 mg Pantoprazole Sodium (Protonix Ec Tab) 40 mg PO DAILY [facility] Last Admin: 02/01/17 09:55 Dose: 40 mg Potassium Chloride (K-Dur 20 Meq Er Tab) 20 meq PO DAILY [facility] Last Admin: 02/01/17 09:56 Dose: 20 meq Promethazine HCl/Dextromethorphan (Phenergan Dm Syrup) 5 ml PO Q8 [facility] Last Admin: 02/01/17 05:57 Dose: 5 ml Rosuvastatin Calcium (Crestor) 5 mg PO HS [facility] Last Admin: 01/31/17 22:44 Dose: 5 mg Fluticasone/Salmeterol (Advair Diskus 250/50) 1 puff INH RQ12 [facility] Last Admin: 02/01/17 07:38 Dose: Not Given - Labs Labs: 02/01/17 06:39 02/01/17 06:39 PT 21.6 SECONDS (9.7-12.2) H D 02/01/17 06:39 INR 1.9 D 02/01/17 06:39 APTT 72 SECONDS (21-34) H 01/29/17 14:02 Assessment and Plan (1) Sepsis Status: Acute (2) Strep throat Status: Acute (3) UTI (urinary tract infection) Status: Acute (4) Deep venous thrombosis of lower extremity Status: Acute (5) Diabetes mellitus Status: Acute (6) Hypertension Status: Acute
--- NOTE | 2017-02-01 17:40 | CARD ---
APPROVED REPORT EKG Measurement Heart [id number] <Conclusion> Normal sinus rhythm Right bundle branch block T wave abnormality, consider inferior ischemia Abnormal ECG
--- NOTE | 2017-02-01 22:12 | PN ---
DATE: SUBJECTIVE: The patient denies any chest pain, palpitation or dizziness. PHYSICAL EXAMINATION: VITAL SIGNS: Blood pressure 103/72, heart rate 98, temperature 98.3 and respirations 20. HEENT: Normocephalic. CHEST: Clear. HEART: S1 and S2, regular. EXTREMITIES: No edema. LABORATORY DATA: Today's potassium level 3.4, glucose is 123. Rest of chemistry is within normal limits. Today's INR is 1.9. Hemoglobin, hematocrit, white count and platelet count are within normal limits. Echocardiograph study reported normal left ventricular systolic function and normal segmental wall motion with grade I abnormal relaxation pattern. Blood culture is negative after 3 days. The latest EKG from 01/30/2017 revealed sinus rhythm at a rate of 97 with right bundle-branch block. ASSESSMENT: 1. Urinary tract infection. 2. Rule out underlying sepsis. 3. Hypertension and diabetes mellitus. 4. Hypokalemia. 5. History of right leg deep vein thrombosis. RECOMMENDATIONS: Continue K-Dur at 20 mEq orally daily. Continue IV tigecycline at 50 mg twice a day and IV Cipro at 400 mg intravenously twice a day. Continue Crestor 5 mg once a day. The patient will receive Coumadin 4 mg orally today. Cornel Kenny MD
--- NOTE | 2017-02-02 00:31 | PN ---
DATE: SUBJECTIVE: Today, the patient is alert, awake, still complaining of some cough with yellow sputum, but it is decreasing and complaining of some pain to the left leg which is chronic and no shortness of breath, no palpitations, no chest pain. PHYSICAL EXAMINATION VITAL SIGNS: The patient has blood pressure of 130/72, pulse is 98, respirations 20, temperature 98.3. NECK: Supple, no JVD. LUNGS: Clear. HEART: Regular rate and rhythm. ABDOMEN: Soft, mild epigastric tenderness and mild hypogastric tenderness. Positive bowel sounds. EXTREMITIES: There is some tenderness to the left lower extremity mainly into the calf which is old. LABORATORY DATA: The patient has the test done today. WBC is 7.6, hemoglobin 11.5, hematocrit 35, and platelets 281. The coagulation showed that the PT is 21, INR 1.9. Chemistry; sodium 141, potassium 3.4, chloride 104, bicarb is 29, BUN 14, creatinine 0.7, and glucose is 123. PLAN: We are going to continue the antibiotic therapy for 2 more days and potassium will be replaced. The case was reviewed and discussed with Tori Mckeon, the nurse practitioner. Ambrocio Ramirez MD
[2017-02-02] MEDS: Promethazine DM 6.25 mg-15 mg/5 ml Syrup PO SCH ×3 (05:47→21:39)
[2017-02-02] MEDS: Fluticasone-Salmeterol 250-50mcg Diskus INH SCH ×2 (07:12→19:17)
[2017-02-02 07:13] LABS: INR 1.7
[2017-02-02 07:22] LABS: HEMATOCRIT 35.7 % (34.0-47.0); MEAN CELL VOLUME 85.2 fL (81.0-99.0); MEAN CORPUSCULAR HEMOGLOBIN 27.5 pg (27.0-31.0); MEAN CORPUSCULAR HGB CONC 32.3 g/dL (33.0-37.0); MEAN PLATELET VOLUME 8.5 fL (7.2-11.7); RED CELL DISTRIBUTION WIDTH 14.1 % (11.5-14.5); WHITE BLOOD COUNT 8.9 K/uL (4.8-10.8)
[2017-02-02] MEDS: (Novolog) Insulin Aspart, Recombinant 100 u/ml 10 ml vial SC SCH ×4 (07:30→21:39)
[2017-02-02 08:02] LABS: CHLORIDE 104 mmol/L (98-107); POTASSIUM 3.7 mmol/L (3.6-5.2); SODIUM 141 mmol/L (132-148)
[2017-02-02 08:05] LABS: BLOOD UREA NITROGEN 15 mg/dL (7-17); CARBON DIOXIDE 26 mmol/L (22-30); GFR AFRICAN-AMERICAN > 60
[2017-02-02 08:06] LABS: CALCIUM 9.1 mg/dl (8.6-10.4); GLUCOSE,RANDOM 91 mg/dL (65-105)
[2017-02-02] MEDS: Potassium Chloride 20 mEq ER Tab PO SCH ×2 (09:52→09:54)
[2017-02-02] MEDS: Pantoprazole 40 mg EC Tab PO SCH (09:52)
--- NOTE | 2017-02-02 13:34 | CP.PCM.PN ---
Subjective - Date & Time of Evaluation Date of Evaluation: 02/02/17 Time of Evaluation: 13:34 - Subjective Subjective: CHIEF COMPLAINTS TODAY : afebrile c/o diarrhoea throat better ROS HEENT : N. +VE LESS CONGESTED TONSILS. Resp : No SOB wheezing, +ve cough Cardio : No CP, PND orthopnea GI : No abd. 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 Musculoskel : N Ext. : Pedal pulses intact, no edema or calf pain Derm : N Psych : N. PE. Pt. is alert awake in no distress. V.S As noted in the chart Head ,ear nose,THROAT LESS CONGESTED AND ENLARGED TONSILS./ NO EXUDATES. Neck : Supple with normal carotids. Lungs: -VE WHEEZE Heart : S1 & S2 normal . . No murmur. S4 + Abd : Soft non tender with normal bowel sounds. Neuro : Moves all ext. with no localized deficit. Ext : No edema with intact pulses. Neg. calf tenderness Derm : No rashes or decubitus ulcer. Radiology/Labs . wbc IMPROVING 7.6 inr 1.9 K 3.4 LFTS OK BLOOD CULTURES -VE DATE tHROAT CULTURES -VE STREP GROUP A. uRINE CULTURE +VE STREPTOCOCCOSIS AGALACTIAE . Asssessment : SEPSIS HYPERPYREXIA/HYPOTENSION ACUTE PHARYNGITIS/TRACHEITIS. UROSEPSIS. NEW DIARRHOEA R/O COLITIS HX PE/DVT +VE IVC FILTER/ON COUMADIN DM HTN Plan : CONTINUE iv TYGACIL 50 MG EVERY 12 HOURLY.01/30 till 02/04/17 OFF iv CIPRO 02/01/17 C DIFFICILE TOXIN F/U URINE CULTURES POTASSIUM SUPPLEMENT PER PMD WILL DISCUSS WITH PMD. Objective - Vital Signs/Intake and Output Vital Signs (last 24 hours): Temp Pulse Resp BP Pulse Ox 98.7 F 101 H 18 131/69 98 02/02/17 07:05 02/02/17 07:05 02/02/17 07:05 02/02/17 07:05 02/02/17 07:05 Intake and Output: 02/02/17 02/02/17 06:59 18:59 Intake Total 940 Balance 940 - Medications Medications: Current Medications Albuterol Sulfate (Albuterol 0.083% Inhal Marilou (2.5 Mg/3 Ml) Ud) 2.5 mg INH RTID PRN PRN Reason: Shortness of Breath Last Admin: 02/01/17 13:29 Dose: 2.5 mg Gabapentin (Neurontin) 100 mg PO BID [facility] Last Admin: 02/02/17 09:52 Dose: 100 mg Tigecycline 50 mg/ Sodium (Chloride) 100 mls @ 100 mls/hr IVPB Q12H [facility] Last Admin: 02/02/17 02:04 Dose: 100 mls/hr Insulin Aspart (Novolog) 0 unit SC ACHS [facility] PRN Reason: Protocol Last Admin: 02/02/17 12:31 Dose: 1 unit Losartan Potassium (Cozaar) 100 mg PO DAILY [facility] Last Admin: 02/02/17 09:52 Dose: 100 mg Metformin HCl (Glucophage) 500 mg PO ACB [facility] Last Admin: 02/02/17 08:53 Dose: 500 mg Montelukast Sodium (Singulair) 10 mg PO HS [facility] Last Admin: 02/01/17 22:06 Dose: 10 mg Pantoprazole Sodium (Protonix Ec Tab) 40 mg PO DAILY [facility] Last Admin: 02/02/17 09:52 Dose: 40 mg Potassium Chloride (K-Dur 20 Meq Er Tab) 20 meq PO DAILY [facility] Last Admin: 02/02/17 09:54 Dose: Not Given Potassium Chloride (K-Dur 20 Meq Er Tab) 40 meq PO DAILY [facility] Last Admin: 02/02/17 09:52 Dose: 40 meq Promethazine HCl/Dextromethorphan (Phenergan Dm Syrup) 5 ml PO Q8 [facility] Last Admin: 02/02/17 05:47 Dose: 5 ml Rosuvastatin Calcium (Crestor) 5 mg PO HS [facility] Last Admin: 02/01/17 22:06 Dose: 5 mg Fluticasone/Salmeterol (Advair Diskus 250/50) 1 puff INH RQ12 [facility] Last Admin: 02/01/17 07:38 Dose: Not Given Warfarin Sodium (Coumadin) 4 mg PO 1800 [facility] Stop: 02/02/17 18:01 - Labs Labs: 02/02/17 06:55 02/02/17 06:55 PT 19.9 SECONDS (9.7-12.2) H 02/02/17 06:55 INR 1.7 02/02/17 06:55 APTT 72 SECONDS (21-34) H 01/29/17 14:02 Assessment and Plan (1) Sepsis Status: Acute (2) Strep throat Status: Acute (3) UTI (urinary tract infection) Status: Acute (4) Deep venous thrombosis of lower extremity Status: Acute (5) Diabetes mellitus Status: Acute (6) Hypertension Status: Acute
--- NOTE | 2017-02-02 14:21 | CARD ---
APPROVED REPORT EKG Measurement Heart [id number] ME [id number] [id number] <Conclusion> Normal sinus rhythm Right bundle branch block Abnormal ECG
--- NOTE | 2017-02-02 17:33 | CP.PCM.PN ---
Subjective - Date & Time of Evaluation Date of Evaluation: 02/02/17 Time of Evaluation: 17:28 - Subjective Subjective: PT TO BE D/C HOME TOMORROW. DISCUSSED WITH DR. LINDSAY AND NO NEED TO GIVE RX FOR ABX (CIPRO) UPON D/C TOMORROW. PT WILL RECEIVE LAST DOSE OF TYGACIL TOMORROW MORNING THEN BE D/C HOME. 2 WK SUPPLY OF WARFARIN RX; REFILLS PER DR. RHODES. NO FURTHER ORDERS. PT TO BE D/C HOME TOMORROW AFTER DR. RHODES'S ROUNDS. Objective - Vital Signs/Intake and Output Vital Signs (last 24 hours): Temp Pulse Resp BP Pulse Ox 98.1 F 96 H 20 137/83 99 02/02/17 15:11 02/02/17 15:11 02/02/17 15:11 02/02/17 15:11 02/02/17 15:11 Intake and Output: 02/02/17 02/02/17 06:59 18:59 Intake Total 940 100 Balance 940 100 - Medications Medications: Current Medications Albuterol Sulfate (Albuterol 0.083% Inhal Marilou (2.5 Mg/3 Ml) Ud) 2.5 mg INH RTID PRN PRN Reason: Shortness of Breath Last Admin: 02/01/17 13:29 Dose: 2.5 mg Gabapentin (Neurontin) 100 mg PO BID [facility] Last Admin: 02/02/17 09:52 Dose: 100 mg Tigecycline 50 mg/ Sodium (Chloride) 100 mls @ 100 mls/hr IVPB Q12H [facility] Last Admin: 02/02/17 14:30 Dose: 100 mls/hr Insulin Aspart (Novolog) 0 unit SC ACHS [facility] PRN Reason: Protocol Last Admin: 02/02/17 17:00 Dose: Not Given Losartan Potassium (Cozaar) 100 mg PO DAILY [facility] Last Admin: 02/02/17 09:52 Dose: 100 mg Metformin HCl (Glucophage) 500 mg PO ACB [facility] Last Admin: 02/02/17 08:53 Dose: 500 mg Montelukast Sodium (Singulair) 10 mg PO HS [facility] Last Admin: 02/01/17 22:06 Dose: 10 mg Pantoprazole Sodium (Protonix Ec Tab) 40 mg PO DAILY [facility] Last Admin: 02/02/17 09:52 Dose: 40 mg Potassium Chloride (K-Dur 20 Meq Er Tab) 20 meq PO DAILY [facility] Last Admin: 02/02/17 09:54 Dose: Not Given Potassium Chloride (K-Dur 20 Meq Er Tab) 40 meq PO DAILY [facility] Last Admin: 02/02/17 09:52 Dose: 40 meq Promethazine HCl/Dextromethorphan (Phenergan Dm Syrup) 5 ml PO Q8 [facility] Last Admin: 02/02/17 14:30 Dose: 5 ml Rosuvastatin Calcium (Crestor) 5 mg PO HS [facility] Last Admin: 02/01/17 22:06 Dose: 5 mg Fluticasone/Salmeterol (Advair Diskus 250/50) 1 puff INH RQ12 [facility] Last Admin: 02/01/17 07:38 Dose: Not Given Warfarin Sodium (Coumadin) 4 mg PO 1800 [facility] Stop: 02/02/17 18:01 - Labs Labs: 02/02/17 06:55 02/02/17 06:55 PT 19.9 SECONDS (9.7-12.2) H 02/02/17 06:55 INR 1.7 02/02/17 06:55 APTT 72 SECONDS (21-34) H 01/29/17 14:02
--- NOTE | 2017-02-02 19:53 | PN ---
DATE: SUBJECTIVE: The patient did report palpitation yesterday. She denies any chest pain or dizziness. PHYSICAL EXAMINATION: VITAL SIGNS: Blood pressure 131/69, heart rate 101, temperature 98.7, respirations 18. HEENT: Normocephalic. CHEST: Clear. HEART: S1 and S2, regular. ABDOMEN: Soft. EXTREMITIES: No edema. LABORATORY DATA: Hemoglobin and hematocrit 11.5 and 35.7, white count and platelet count are within normal limit. Review of SMA-7 is within normal limit. Subsequent blood sugar at 12 noon was 168. Blood culture is negative after 3 days. ASSESSMENT: 1. Urinary tract infection. 2. Consider upper respiratory tract infection. 3. Hypertension. 4. Sinus tachycardia with physiologic response. 5. Chronic obstructive lung disease. 6. History of right leg deep venous thrombosis. Today's INR is 1.7. RECOMMENDATIONS: Continue current albuterol inhaler, Cozaar 100 mg once a day, metformin 500 mg twice a day, K-Dur 20 mEq daily, Protonix 40 mg p.o. once a day, Phenergan DM syrup 5 mL q. 8 hours, tigecycline 50 mg intravenous q.12 hours. The patient will receive Coumadin 4 mg orally today. Discontinue telemetry. Cornel Kenny MD
[2017-02-03] MEDS: Promethazine DM 6.25 mg-15 mg/5 ml Syrup PO SCH ×2 (06:02→14:21)
[2017-02-03 06:52] LABS: HEMATOCRIT 36.9 % (34.0-47.0); MEAN CELL VOLUME 85.2 fL (81.0-99.0); MEAN CORPUSCULAR HEMOGLOBIN 27.7 pg (27.0-31.0); MEAN CORPUSCULAR HGB CONC 32.4 g/dL (33.0-37.0); MEAN PLATELET VOLUME 8.3 fL (7.2-11.7); WHITE BLOOD COUNT 10.2 K/uL (4.8-10.8)
[2017-02-03 06:59] LABS: INR 1.7
[2017-02-03] MEDS: Fluticasone-Salmeterol 250-50mcg Diskus INH SCH (07:12)
[2017-02-03 07:40] LABS: CHLORIDE 111 mmol/L (98-107); POTASSIUM 3.5 mmol/L (3.6-5.2); SODIUM 141 mmol/L (132-148)
[2017-02-03] MEDS: (Novolog) Insulin Aspart, Recombinant 100 u/ml 10 ml vial SC SCH ×2 (07:40→12:31)
[2017-02-03 07:43] LABS: CARBON DIOXIDE 20 mmol/L (22-30); GFR AFRICAN-AMERICAN > 60
[2017-02-03 07:44] LABS: BLOOD UREA NITROGEN 17 mg/dL (7-17); CALCIUM 7.5 mg/dl (8.6-10.4); GLUCOSE,RANDOM 92 mg/dL (65-105)
--- NOTE | 2017-02-03 08:01 | PN ---
DATE: SUBJECTIVE: The patient today is alert and awake. She is on bed with no distress, no shortness of breath, no chest pain, and cough with some whitish sputum. PHYSICAL EXAMINATION: VITAL SIGNS: The patient's blood pressure is 137/83, pulse is 96, respiration is 20, temperature 98.1. NECK: Supple, no JVD. LUNGS: Rhonchi. HEART: Regular rate and rhythm. ABDOMEN: Soft, obese, nontender and no palpable mass except some mild tenderness in the hypogastric area, which is chronic. EXTREMITIES: There is some swelling of the left leg, which is also DVT. LABORATORY DATA: The patient's blood work showed WBC is 8.9, hemoglobin 11.5, hematocrit 35.7, and platelet is 308. The coagulation; PT is 19.9, INR is 1.7. Chemistry shows sodium 141, potassium 3.7, chloride 104, bicarb is 26, BUN 15, creatinine 0.8, glucose 81 and calcium is 9.1. PLAN: We are going to continue the antibiotic therapy and encouraged the patient to ambulate. The patient is almost at the last day, tomorrow will be the last day of Tygacil and after that the patient will be discharged. The case was discussed with Tori Mckeon, the nurse practitioner and also with Dr. Yonas Smith. In fact, medication will be ordered including Coumadin, and Coumadin will be today of 5 mg. Ambrocio Ramirez MD
[2017-02-03 08:21] VITALS: BP 126/74; PULSE 94; RESP 18; TEMP 98.9; O2SAT 96
[2017-02-03] MEDS: Potassium Chloride 20 mEq ER Tab PO SCH ×2 (09:02→10:50)
[2017-02-03] MEDS: Pantoprazole 40 mg EC Tab PO SCH (09:03)
--- NOTE | 2017-02-04 00:05 | PN ---
DATE: SUBJECTIVE: The patient today is alert and awake, denied any shortness of breath. No chest pain. No palpitations. Having some slightly greenish cough. PHYSICAL EXAMINATION: VITAL SIGNS: The patient has a blood pressure of 126/74, pulse is 94, respiration is 18, and temperature is 98.9. NECK: Supple. No JVD. LUNGS: Clear. HEART: Regular rate and rhythm. ABDOMEN: Soft and mild tenderness at the epigastric area, which is chronic. EXTREMITIES: There is edema in the left leg, which is old. LABORATORY DATA: The patient's blood workup showed WBC 10,2, hemoglobin 12, hematocrit 36.9, and platelet 307. Chemistry: Sodium 141, potassium 3.5, chloride 111, bicarbonate is 20, BUN is 17, creatinine is 0.6, and glucose 92. The coag showed that the PT is 19.9 and INR is 1.7. PLAN: The patient is at her last dose of Tygacil. The patient will be discharged home today. The patient has been issued physical therapy. She will schedule a visit and discuss with Tori Mckeon, the nurse practitioner. Ambrocio Ramirez MD
--- NOTE | 2017-02-07 07:34 | DS ---
SUBJECTIVE: The patient is a 61-year-old female with a history of hypertension, diabetes and chronic DVT. The patient was admitted because the patient was found to be septic with UTI and also had acute pharyngitis. The patient also at that time was found also to be very tachycardic, so the patient had consult with Dr. Kenny, Cardiology, and also with Dr. Yonas Smith, ID. PHYSICAL EXAMINATION: GENERAL: On the physical exam, we found the patient produce cough with yellowish sputum. LUNGS: Had some rales bilaterally and rhonchi. HEART: Tachycardic. ABDOMEN: Soft, but some tenderness in the epigastric area and hypogastric area. EXTREMITIES: There is some swelling and tenderness in the left the patient was receiving antibiotic therapy given by the IV, Tygacil and also other medications including Coumadin, albuterol, Crestor, metformin and Advair among the medications. The patient has improved where the cough has completely subsided and the lungs are clear and the heart came back to below 100, so at this point, the patient was cleared by ID and we will be able to discharge. We will discharge her home after having the potassium replaced. This was reviewed and discussed with , the nurse practitioner. Ambrocio Ramirez MD
== END 2017-02-03 15:15 | disposition home or self-care (01) | DRG 872 ==
LOC: C.ER 12:47 → C.9E 15:41 → C.6T 22:19
PROVIDERS: ADMIT Specialist; ATTEND Specialist
DX: A41.9 Sepsis, unspecified organism (principal); I82.5Z9 Chronic embolism and thrombosis of unspecified deep veins of unspecified distal lower extremity; I10 Essential (primary) hypertension; N39.0 Urinary tract infection, site not specified; J02.0 Streptococcal pharyngitis; E11.9 Type 2 diabetes mellitus without complications; J44.9 Chronic obstructive pulmonary disease, unspecified; N28.9 Disorder of kidney and ureter, unspecified; E78.5 Hyperlipidemia, unspecified; E87.6 Hypokalemia; G47.33 Obstructive sleep apnea (adult) (pediatric); Z79.01 Long term (current) use of anticoagulants; Z87.891 Personal history of nicotine dependence; Z88.0 Allergy status to penicillin; E78.00 Pure hypercholesterolemia, unspecified; Z79.899 Other long term (current) drug therapy

== ENCOUNTER 2018-03-22 18:09 | Inpatient (IN) | payer MEDICARE, MEDICAID ==
[2018-03-22 18:09] VITALS: BMI 32.4
--- NOTE | 2018-03-22 19:49 | C.PDOC ---
History Of Present Illness 62 year old female, with history of DVT, DM, on Eliquis and Neurontin, is sent to the ED for evaluation by Dr. Ramirez. Patient notes right leg cellulitis which began around one week ago. Patient denies fever, chills. Time Seen by Provider: 03/22/18 19:39 Chief Complaint (Nursing): Lower Extremity Problem/Injury History Per: Patient History/Exam Limitations: no limitations Onset/Duration Of Symptoms: Days Current Symptoms Are (Timing): Still Present Location Of Injury: Right: Leg Additional History Per: Patient Past Medical History Reviewed: Historical Data, Nursing Documentation, Vital Signs Vital Signs: Last Vital Signs Temp 98.6 F 03/22/18 18: Pulse 100 H 03/22/18 18:19 Resp 19 03/22/18 18: BP 118/81 03/22/18 18:19 Pulse Ox 96 03/22/18 18:19 - Medical History PMH: Anemia, Arthritis, Back Problems, COPD, Diabetes, Deep Vein Thrombosis (chronic or rt leg), HTN, Hypercholesterolemia Denies: Chronic Kidney Disease Surgical History: Endoscopy Denies: Pacemaker - [facility] Procedures ANESTH INJECT SYMP NERVE (10/17/14) COLONOSCOPY (06/14/14) ENDO EXCISION/DEST OF LESION OR TISSUE OF STOMACH (06/14/14) EXERCISE TREATMENT OF MUSCULOSK WHOLE USING ASSIST EQUIPMENT (10/29/16) HOME MANAGEMENT TREATMENT USING ASSIST EQUIPMENT (10/29/16) INFLUENZA VACCINATION (03/22/13) NON-INVASIVE MECHANICAL VENTILATION (01/05/13) PERIPH NERVE DESTRUCTION (12/05/14) Family History: States: Unknown Family Hx - Social History Hx Tobacco Use: No Hx Alcohol Use: No Hx Substance Use: No - Immunization History Hx Tetanus Toxoid Vaccination: Yes Hx Influenza Vaccination: No Hx Pneumococcal Vaccination: Yes Review Of Systems Skin: Positive for: Other (right leg cellulitis ) Physical Exam - Physical Exam Appears: Non-toxic, No Acute Distress Skin: Warm, Dry, Other (cellulitic changes to right foot. Induration to lower medial leg with localized tenderness. skin intact ) Head: Atraumatic, Normacephalic Eye(s): bilateral: Normal Inspection Oral Mucosa: Moist Neck: Supple Chest: Symmetrical, No Deformity, No Tenderness Cardiovascular: Rhythm Regular, No Murmur Respiratory: Normal Breath Sounds, No Rales, No Rhonchi, No Wheezing Extremity: Normal ROM, Capillary Refill (less than 2 seconds ), Other (right>left lower extremity swelling (chronic, as per patient)) Neurological/Psych: Oriented x3, Normal Speech, Normal Cognition ED Course And Treatment - Laboratory Results Result Diagrams: 03/22/18 20:52 O2 Sat by Pulse Oximetry: 96 (on RA) Pulse Ox Interpretation: Normal - Radiology CXR: Interpreted by Me (neg ) - Other Rad TibFib XR X-Ray: Interpreted by Me (neg) Progress Note: Bloodwork, CXR, EKG, Right Foot XR, Right Tibia Fibula XR ordered. Cipro IV, Toradol IVP and Morphine IVP given. Progress - Re-Evaluation Re-evaluation Note: 03/22/18 19:52 MULTIPLE ABX ALLERGIES. PER REFERRAL NOTE, ADMIT TO PMD - Data Reviewed Data Reviewed: Lab, Diagnostic imaging, EKG, Old records Disposition Counseled Patient/Family Regarding: Studies Performed, Diagnosis - Disposition Disposition: HOSPITALIZED Disposition Time: 19:53 Condition: STABLE - POA Present On Arrival: Poor Glycemic Control - Clinical Impression Clinical Impression: Cellulitis
[2018-03-22] MEDS ORDERED: Ciprofloxacin 400mg/200ml D5W 400 MG/200 ML BAG IV STA (20:22)
[2018-03-22] MEDS ORDERED: Ciprofloxacin 400mg/200ml D5W 400 MG/200 ML BAG IVPB ONE (20:56)
[2018-03-22 21:02] LABS: BASO # 0.1 K/uL (0.0-0.2); BASO % 0.9 % (0.0-2.0); EOS # 0.2 K/uL (0.0-0.7); EOS % 2.6 % (0.0-4.0); HEMOGLOBIN 11.2 g/dL (11.0-16.0); LYMPH # 1.9 K/uL (1.0-4.3); LYMPH % 31.6 % (20.0-40.0); MEAN CELL VOLUME 86.4 fL (81.0-99.0); MEAN CORPUSCULAR HEMOGLOBIN 28.6 pg (27.0-31.0); MEAN CORPUSCULAR HGB CONC 33.1 g/dL (33.0-37.0); MEAN PLATELET VOLUME 8.1 fL (7.2-11.7); MONO # 0.5 K/uL (0.0-0.8); MONO % 9.1 % (0.0-10.0); NEUT # 3.4 K/uL (1.8-7.0); NEUT % 55.8 % (50.0-75.0); NRBC % 0.1 % (0.0-2.0); RBC 3.94 Mil/uL (3.80-5.20); RED CELL DISTRIBUTION WIDTH 12.8 % (11.5-14.5)
[2018-03-22 21:06] LABS: VENOUS BLOOD GAS BASE EXCESS 0.2 mmol/L (0.0-2.0); VENOUS BLOOD GAS PCO2 51 mmHg (40-60); VENOUS BLOOD GAS PO2 38 mm/Hg (30-55); VENOUS BLOOD PH 7.33 (7.32-7.43)
[2018-03-22 21:12] LABS: INR 1.2; PROTHROMBIN TIME 13.2 SECONDS (9.7-12.2)
[2018-03-22 21:14] LABS: ALB/GLOB RATIO 1.4 (1.0-2.1); ALBUMIN 4.2 g/dL (3.5-5.0); ALT/SGPT 17 U/L (9-52); AST/SGOT 16 U/L (14-36); BLOOD UREA NITROGEN 17 mg/dL (7-17); CALCIUM 9.2 mg/dl (8.6-10.4); GFR NON-AFRICAN AMERICAN > 60
--- NOTE | 2018-03-23 09:32 | RAD ---
HISTORY: Medical clearance COMPARISON: 01/29/2017. TECHNIQUE: Chest PA and lateral FINDINGS: LINES AND TUBES: The right-sided MediPort terminates in the SVC. LUNG AND PLEURA: The lungs are well inflated and clear. No pleural effusion or pneumothorax. HEART AND MEDIASTINUM: The heart is not enlarged. The hilar and mediastinal contours are within normal limits. SKELETAL STRUCTURES: The bony structures are within normal limits for the patient's age. VISUALIZED UPPER ABDOMEN: Normal. OTHER FINDINGS: None. IMPRESSION: No active pulmonary disease.
--- NOTE | 2018-03-23 09:33 | RAD ---
Date of service: 03/22/2018 PROCEDURE: Right Foot Radiographs. HISTORY: CELLULITIS COMPARISON: 01/26/2015 FINDINGS: BONES: The lateral cortical irregularity without acute periosteal reaction over the 5th distal metatarsal is stable appearing since 2014. No interval periosteal reaction or interval cortical destruction seen to suggest an acute or subacute osteomyelitis. Inferior calcaneal spur . Eva's tendon insetional enesthesophyte.-both similar-appearing JOINTS: 1st metatarsal-phalangeal joint arthrosis-similar SOFT TISSUES: No gas-forming cellulitis appreciated OTHER FINDINGS: None. IMPRESSION: No interval findings to suggest an acute/subacute osteomyelitis. Findings referenced above regarding the lateral 5th metatarsal head are stable since 2014. Other findings as above. Comments: Study marked for PA review .
--- NOTE | 2018-03-23 09:34 | RAD ---
Date of service: 03/22/2018 PROCEDURE: Radiographs of the right tibia and fibula. HISTORY: CELLULITIS COMPARISON: None available TECHNIQUE: Frontal and lateral views obtained. FINDINGS: BONES: No fracture or destructive lesion. JOINT SPACES: Unremarkable. OTHER FINDINGS: Diffuse subcutaneous reticulated edema present IMPRESSION: Diffuse circumferential subcutaneous reticulated edema compatible with cellulitis. No gas-forming cellulitis. No periosteal reaction or cortical destruction to suggest osteomyelitis
[2018-03-23] MEDS: Pantoprazole 40 mg EC Tab PO SCH (10:17)
[2018-03-23] MEDS: (Novolog) Insulin Aspart, Recombinant 100 u/ml 10 ml vial SC SCH ×3 (12:34→21:13)
[2018-03-23] MEDS ORDERED: Morphine 15 mg SR Tab PO SCH (13:45)
[2018-03-23] MEDS: GlipiZIDE 5 mg SR Tab PO SCH (18:07)
[2018-03-24] MEDS ORDERED: Morphine 15 mg SR Tab PO ONE (00:17)
[2018-03-24 07:21] LABS: BASO % 0.9 % (0.0-2.0); EOS # 0.2 K/uL (0.0-0.7); EOS % 3.3 % (0.0-4.0); HEMOGLOBIN 10.8 g/dL (11.0-16.0); LYMPH # 1.9 K/uL (1.0-4.3); LYMPH % 36.1 % (20.0-40.0); MEAN CORPUSCULAR HEMOGLOBIN 28.3 pg (27.0-31.0); MEAN CORPUSCULAR HGB CONC 32.9 g/dL (33.0-37.0); MEAN PLATELET VOLUME 8.4 fL (7.2-11.7); MONO # 0.5 K/uL (0.0-0.8); MONO % 9.7 % (0.0-10.0); NEUT # 2.6 K/uL (1.8-7.0); NRBC % 0.1 % (0.0-2.0); RBC 3.81 Mil/uL (3.80-5.20); RED CELL DISTRIBUTION WIDTH 12.9 % (11.5-14.5); WHITE BLOOD COUNT 5.3 K/uL (4.8-10.8)
[2018-03-24] MEDS: (Novolog) Insulin Aspart, Recombinant 100 u/ml 10 ml vial SC SCH ×4 (07:36→21:35)
[2018-03-24 07:38] LABS: ALB/GLOB RATIO 1.2 (1.0-2.1); ALBUMIN 3.4 g/dL (3.5-5.0); ALT/SGPT 19 U/L (9-52); AST/SGOT 16 U/L (14-36); BLOOD UREA NITROGEN 15 mg/dL (7-17); CALCIUM 8.5 mg/dl (8.6-10.4); GFR NON-AFRICAN AMERICAN > 60
--- NOTE | 2018-03-24 07:57 | HP ---
HISTORY OF PRESENT ILLNESS: This patient is a 62-year-old female with a history of chronic DVT, hypertension, and diabetes. The patient came to my office. The patient was complaining of pain to the right leg and swelling. Also, the patient stated that for the past four days, the leg was swollen and tender and red. The patient came to my office today and was found to have some redness and tenderness of the leg, so the patient was advised to go to the hospital for evaluation and admission. ALLERGIES: SHE IS ALLERGIC TO VANCOMYCIN, PENICILLIN, SHELLFISH, CLINDAMYCIN, AND LATEX, NATURAL RUBBER. MEDICATIONS: The patient was on multiple medications including losartan, Eliquis, Crestor, sertraline, metformin, glipizide, hydrochlorothiazide. Also, she was in gabapentin, Protonix, and Singulair. SOCIAL HISTORY: The patient is , has children. No smoking or alcohol abuse. REVIEW OF SYSTEMS: RESPIRATORY: No shortness of breath. CARDIOVASCULAR: No chest pain. GASTROINTESTINAL: No nausea or vomiting. GENITOURINARY: No dysuria. The patient has a history of urinary stress incontinence. NEUROLOGIC: The patient is weak and tender to right leg. PSYCHIATRIC: Psychiatric jessica, the patient is little depressed. PHYSICAL EXAMINATION: GENERAL: The patient is alert and awake, crying, giving and currently having pain. NECK: Supple. No JVD. LUNGS: Clear. HEART: S1 and S2. ABDOMEN: Benign. EXTREMITIES: There is a swelling of the right leg, which is warm and tender. There are some pinpoint lesions in the leg and tenderness tibia. LABORATORY DATA: The patient has other tests done. Test was done yesterday: WBC 6, hemoglobin 11.2, hematocrit 34, and platelet 281. Also, the patient has a chemistry sodium 143, potassium 3.6, chloride 105, bicarb 25, BUN 17, creatinine 0.8, glucose is 106, calcium 9.2. AST 16, ALT 17, alkaline phosphatase 70, total protein 7.2, albumin 4.2, and globulin 3. The patient has an x-ray of the leg and fibula that showed diffuse circumferential subcutaneous reticulated edema compatible with cellulitis. No gas-forming cellulitis. The foot x-ray showed first metatarsophalangeal joint arthrosis, similar soft tissue inflammation. ASSESSMENT AND PLAN: The patient will be admitted with the diagnoses of cellulitis of the right leg, chronic deep venous thrombosis, diabetes, hypertension, and depression. The patient is going to have infectious disease consult with Dr. Yonas Smith actually it will be with Dr. Maharaj. The plan was discussed with Aleyda Ramon, the nurse practitioner. We are also going to order a bone scan since the patient refused MRI . Ambrocio Ramirez MD
[2018-03-24] MEDS ORDERED: Potassium Chloride 20 mEq ER Tab PO ONE (10:00)
[2018-03-24] MEDS: GlipiZIDE 2.5 mg SR Tab PO SCH (11:22)
[2018-03-24] MEDS: Pantoprazole 40 mg EC Tab PO SCH (11:24)
[2018-03-24] MEDS: Oxycodone/Acetaminophen 5/325 mg Tab PO PRN (11:27)
--- NOTE | 2018-03-24 12:14 | CP.PCM.CON ---
History of Present Illness - History of Present Illness History of Present Illness: 62 year old female, with history of DVT, DM, on Eliquis and Neurontin, is sent to the ED for evaluation by Dr. Ramirez. Patient notes right leg cellulitis which began around one week ago. Patient denies fever, chills. - Medical History PMH: Anemia, Arthritis, Back Problems, COPD, Diabetes, Deep Vein Thrombosis (chronic or rt leg), HTN, Hypercholesterolemia Denies: Chronic Kidney Disease Surgical History: Endoscopy Denies: Pacemaker Review of Systems - Review of Systems All systems: reviewed and no additional remarkable complaints except - Constitutional Constitutional: As Per HPI - EENT Eyes: absent: As Per HPI, Blind Spots, Blurred Vision, Change in Vision, Decreased Night Vision, Diplopia, Discharge, Dry Eye, Exophthalmos, Floaters, Irritation, Itchy Eyes, Loss of Peripheral Vision, Pain, Photophobia, Requires Corrective Lenses, Sees Flashes, Spots in Vision, Tunnel Vision, Other Visual Disturbances, Loss of Vision, Other Ears: absent: As Per HPI, Decreased Hearing, Ear Discharge, Ear Pain, Tinnitus, Abnormal Hearing, Disequilibrium, Dizziness, Other Nose/Mouth/Throat: absent: As Per HPI, Epistaxis, Nasal Congestion, Nasal Discharge, Nasal Obstruction, Nasal Trauma, Nose Pain, Post Nasal Drip, Sinus Pain, Sinus Pressure, Bleeding Gums, Change in Voice, Dental Pain, Dry Mouth, Dysphagia, Halitosis, Hoarsness, Lip Swelling, Mouth Lesions, Mouth Pain, Odynophagia, Sore Throat, Throat Swelling, Tongue Swelling, Facial Pain, Neck Pain, Neck Mass, Other - Breasts Breasts: absent: As Per HPI, Change in Shape, Mass, Pain, Nipple Discharge, Nipple Inversion, Skin Changes, Swelling, Other - Cardiovascular Cardiovascular: As Per HPI - Respiratory Respiratory: absent: As Per HPI, Cough, Dyspnea, Hemoptysis, Dyspnea on Exertion, Wheezing, Snoring, Stridor, Pain on Inspiration, Chest Congestion, Excessive Mucous Production, Change in Mucous Color, Pain with Coughing, Other - Gastrointestinal Gastrointestinal: absent: As Per HPI, Abdominal Pain, Belching, Bloating, Change in Bowel Habits, Change in Stool Character, Coffee Ground Emesis, Constipation, Cramping, Diarrhea, Dyspepsia, Dysphagia, Early Satiety, Excessive Flatus, Fecal Incontinence, Heartburn, Hematemesis, Hematochezia, Loose Stools, Melena, Nausea, Odynophagia, Temesmus, Vomiting, Other - Genitourinary Genitourinary: absent: As Per HPI, Change in Urinary Stream, Difficulty Urinating, Dysuria, Flank Pain, Hematuria, Pyuria, Nocturia, Urinary Incontinence, Urinary Frequency, Urinary Hesitance, Urinary Urgency, Voiding Freq/Small Amts, Freq UTI, Hx Renal/Bladder Calculi, Hx /Renal Surgery, Bladder Distension, Other - Reproductive: Female Reproductive:Female: absent: As Per HPI, Amenorrhea, Amenorrhea/ Control, Currently Menstual, Cycle <21 Days, Cycle >35 Days, Cycle Variable, Menses 1-7 Days, Menses >/= 8 Days, Menses Variable, Cycle > 4 Weeks Between, No Menses for 6 Months, Heavy Menses, Light Menses, Normal Menses, Spotting Between Cycles, S/P Hysterectomy, Menopausal, Post Menopausal, Premenarche, Abnormal Vaginal Bleeding, Dysmenorrhea, Dyspareunia, Genital Lesions, Genital Pruritis, Pelvic Pain, Prolapse Symptoms, Sexual Dysfunction, Vaginal Discharge, Vaginal Dryness, Vaginal Odor, Vaginal Pruritis, Other - Menstruation Menstruation: absent: As Per HPI, Amenorrhea, Amenorrhea/ Control, Currently Menstual, Cycle <21 Days, Cycle >35 Days, Cycle Variable, Menses 1-7 Days, Menses >/= 8 Days, Menses Variable, Cycle > 4 Weeks Between, No Menses for 6 Months, Heavy Menses, Light Menses, Normal Menses, Spotting Between Cycles, S/P Hysterectomy, Menopausal, Post Menopausal, Premenarche, Abnormal Vaginal Bleeding, Dysmenorrhea, Other - Musculoskeletal Musculoskeletal: As Per HPI - Integumentary Integumentary: As Per HPI - Neurological Neurological: absent: As Per HPI, Abnormal Gait, Abnormal Hearing, Abnormal Movements, Abnormal Speech, Behavioral Changes, Burning Sensations, Confusion, Convulsions, Disequilibrium, Dizziness, Numbness, Focal Weakness, Frequent Falls, Headaches, Lack of Coordination, Loss of Vision, Memory Loss, Paresthesias, Radicular Pain, Restless Legs, Sensory Deficit, Syncope, Tingling, Tremor, Vertigo, Weakness, Other Visual Disturbances, Other - Psychiatric Psychiatric: absent: As Per HPI, Abnormal Sleep Pattern, Anhedonia, Anxiety, Auditory Hallucinations, Behavioral Changes, Change in Appetite, Change in Libido, Confusion, Depression, Difficulty Concentrating, Hallucinations, Homi cidal Ideation, Hopelessness, Irritability, Memory Loss, Mood Swings, Panic Attacks, Paranoia, Suicidal Ideation, Visual Hallucinations, Tactile Hallucinations, Other - Endocrine Endocrine: absent: As Per HPI, Change in Body Appearance, Change in Libido, Cold Intolorance, Deepening of Voice, Excessive Sweating, Fatigue, Flushing, Heat Intolorance, Increase in Ring/Shoe/Hat Size, Palpitations, Polydipsia, Polyphagia, Polyuria, Other - Hematologic/Lymphatic Hematologic: absent: As Per HPI, Easy Bleeding, Easy Bruising, Lymphadenopathy, Other Past Patient History - Infectious Disease Hx of Infectious Diseases: MRSA - Past Medical History & Family History Past Medical History?: Yes - Past Social History Smoking Status: Never Smoked - CARDIAC Hx Hypercholesterolemia: Yes Hx Hypertension: Yes Hx Pacemaker: No - PULMONARY Hx Chronic Obstructive Pulmonary Disease (COPD): Yes - NEUROLOGICAL Hx Neurological Disorder: No - HEENT Hx HEENT Problems: No - RENAL Hx Chronic Kidney Disease: No - ENDOCRINE/METABOLIC Hx Diabetes Mellitus Type 2: Yes - HEMATOLOGICAL/ONCOLOGICAL Hx Anemia: Yes - INTEGUMENTARY Hx Dermatological Problems: No - MUSCULOSKELETAL/RHEUMATOLOGICAL Hx Falls: No - GASTROINTESTINAL Hx Gastrointestinal Disorders: Yes Hx Gastroesophageal Reflux: Yes - GENITOURINARY/GYNECOLOGICAL Hx Genitourinary Disorders: No - PSYCHIATRIC Hx Substance Use: No - SURGICAL HISTORY Hx Surgeries: Yes Hx Section: Yes (x 1) Hx Hysterectomy: Yes Other/Comment: Fibroids/Adhesions removal - ANESTHESIA Hx Anesthesia: Yes Hx Anesthesia Reactions: No Hx Malignant Hyperthermia: No Meds Allergies/Adverse Reactions: Allergies Allergy/AdvReac Type Severity Reaction Status Date / Time adhesive tape Allergy RASH Verified 03/22/18 18:23 clindamycin Allergy RASH Verified 03/22/18 18:23 Latex, Natural Rubber Allergy RASH Verified 03/22/18 18:23 Penicillins Allergy RASH Verified 03/22/18 18:23 shellfish derived Allergy RASH Verified 03/22/18 18:23 vancomycin Allergy RASH Verified 03/22/18 18:23 - Medications Medications: Current Medications Apixaban (Eliquis) 5 mg PO BID [facility] Last Admin: 03/24/18 11:21 Dose: 5 mg Cyclobenzaprine HCl (Flexeril) 5 mg PO HS [facility] Last Admin: 03/23/18 21:15 Dose: 5 mg Gabapentin (Neurontin) 100 mg PO BID [facility] Last Admin: 03/24/18 11:21 Dose: 100 mg Glipizide (Glucotrol Xl) 2.5 mg PO ACB [facility] Last Admin: 03/24/18 11:22 Dose: 2.5 mg Glipizide (Glucotrol Xl) 5 mg PO ACD [facility] Last Admin: 03/23/18 18:07 Dose: 5 mg Hydrochlorothiazide (Microzide) 12.5 mg PO DAILY [facility] Last Admin: 03/24/18 11:21 Dose: 12.5 mg Linezolid (Zyvox 600mg/300ml D5w) 600 mg in 300 mls @ 200 mls/hr IVPB Q12H [facility]; Protocol Last Admin: 03/24/18 00:00 Dose: 200 mls/hr Insulin Aspart (Novolog) 0 unit SC ACHS [facility]; Protocol Last Admin: 03/24/18 11:45 Dose: Not Given Losartan Potassium (Cozaar) 50 mg PO DAILY [facility] Last Admin: 03/24/18 11:21 Dose: 50 mg Metformin HCl (Glucophage) 500 mg PO BIDCC [facility] Last Admin: 03/24/18 08:30 Dose: 500 mg Montelukast Sodium (Singulair) 10 mg PO [facility] Last Admin: 03/23/18 21:16 Dose: 10 mg Oxycodone/Acetaminophen (Percocet 5/325 Mg Tab) 1 tab PO Q6H PRN PRN Reason: leg pain Stop: 03/26/18 18:50 Pantoprazole Sodium (Protonix Ec Tab) 40 mg PO DAILY [facility] Last Admin: 03/24/18 11:24 Dose: 40 mg Rosuvastatin Calcium (Crestor) 10 mg PO HS [facility] Last Admin: 03/23/18 21:16 Dose: 10 mg Physical Exam - Constitutional Appears: Non-toxic, Chronically Ill - Head Exam Head Exam: NORMOCEPHALIC - Eye Exam Eye Exam: PERRL - ENT Exam ENT Exam: Normal External Ear Exam - Neck Exam Neck exam: Negative for: Lymphadenopathy - Respiratory Exam Respiratory Exam: Decreased Breath Sounds - Cardiovascular Exam Cardiovascular Exam: REGULAR RHYTHM - GI/Abdominal Exam GI & Abdominal Exam: Diminished Bowel Sounds, Soft. absent: Tenderness - Rectal Exam Rectal Exam: Deferred - Exam Exam: NORMAL INSPECTION - Extremities Exam Extremities exam: Positive for: pedal edema, tenderness. Negative for: calf tenderness, full ROM, normal capillary refill, normal inspection, pedal pulses present - Back Exam Back exam: absent: CVA tenderness (L), CVA tenderness (R) - Neurological Exam Neurological exam: Alert, CN II-XII Intact, Oriented x3, Reflexes Normal - Psychiatric Exam Psychiatric exam: Depressed - Skin Skin Exam: Dry Results - Vital Signs Recent Vital Signs: Last Vital Signs Temp 98 F 03/24/18 08:03 Pulse 83 03/24/18 08:03 Resp 20 03/24/18 08:03 BP 110/74 03/24/18 08:03 Pulse Ox 97 03/24/18 08:03 - Labs Result Diagrams: 03/24/18 07:07 03/24/18 07:07 Labs: Laboratory Results - last 24 hr 03/23/18 03/23/18 03/24/18 16:22 21:01 06:30 WBC RBC Hgb Hct MCV MCH MCHC RDW Plt Count MPV Neut % (Auto) Lymph % (Auto) [place] % (Auto) Eos % (Auto) Baso % (Auto) Neut # (Auto) Lymph # (Auto) [place] # (Auto) Eos # (Auto) Baso # (Auto) Sodium Potassium Chloride Carbon Dioxide Anion Gap BUN Creatinine Est GFR ( Amer) Est GFR (Non-Af Amer) POC Glucose (mg/dL) 148 H 140 H 101 Random Glucose Calcium Total Bilirubin AST ALT Alkaline Phosphatase Total Protein Albumin Globulin Albumin/Globulin Ratio 03/24/18 03/24/18 03/24/18 07:07 07:07 11:27 WBC 5.3 RBC 3.81 Hgb 10.8 L Hct 32.8 L MCV 86.0 MCH 28.3 MCHC 32.9 L RDW 12.9 Plt Count 259 MPV 8.4 Neut % (Auto) 50.0 Lymph % (Auto) 36.1 [place] % (Auto) 9.7 Eos % (Auto) 3.3 Baso % (Auto) 0.9 Neut # (Auto) 2.6 Lymph # (Auto) 1.9 [place] # (Auto) 0.5 Eos # (Auto) 0.2 Baso # (Auto) 0.0 Sodium 143 Potassium 3.5 L Chloride 105 Carbon Dioxide 25 Anion Gap 17 BUN 15 Creatinine 0.8 Est GFR ( Amer) > 60 Est GFR (Non-Af Amer) > 60 POC Glucose (mg/dL) 66 Random Glucose 107 H Calcium 8.5 L Total Bilirubin 0.2 AST 16 ALT 19 Alkaline Phosphatase 58 Total Protein 6.3 Albumin 3.4 L Globulin 2.9 Albumin/Globulin Ratio 1.2 03/24/18 03/24/18 11:29 11:51 WBC RBC Hgb Hct MCV MCH MCHC RDW Plt Count MPV Neut % (Auto) Lymph % (Auto) [place] % (Auto) Eos % (Auto) Baso % (Auto) Neut # (Auto) Lymph # (Auto) [place] # (Auto) Eos # (Auto) Baso # (Auto) Sodium Potassium Chloride Carbon Dioxide Anion Gap BUN Creatinine Est GFR ( Amer) Est GFR (Non-Af Amer) POC Glucose (mg/dL) 65 119 H Random Glucose Calcium Total Bilirubin AST ALT Alkaline Phosphatase Total Protein Albumin Globulin Albumin/Globulin Ratio Assessment & Plan (1) Cellulitis Status: Acute - Assessment and Plan (Free Text) Assessment: HTN, COPD,obstructive sleep apnea, diabetes mellitus type 2, chronic DVT on warfarin and history of IVC filter has severe cellulitis right foot , evidence of PVD multiple allergies ? OM recc : vascular eval, MRI foot and or bone scan, IV antibiotics poor prognosis
[2018-03-24] MEDS: Linezolid 600 mg in D5W 300 ml 600 MG/300 ML BAG IVPB SCH ×3 (12:39→23:56)
--- NOTE | 2018-03-24 15:27 | CARD ---
APPROVED REPORT Date of service: 03/23/2018 EKG Measurement Heart [id number] <Conclusion> Normal sinus rhythm Right bundle branch block Abnormal ECG
[2018-03-24] MEDS: GlipiZIDE 5 mg SR Tab PO SCH (17:25)
--- NOTE | 2018-03-24 20:41 | CP.PCM.CON ---
History of Present Illness - History of Present Illness History of Present Illness: Surgery consult note for Dr. Rodriguez Patient is a 62F with PMH of DVT in 1997 in the RLE, HTN, DM, on eliquis who presented to the ER referred by her primary for worsened right lower leg erythema, swelling, and pain. Patient states that she has some chronic R lower leg swelling and pain chronically, but that it has been worse over the past 3 weeks and that 3 days ago she began having redness around a small scab. Pt also notes an area of firmness underneath the skin of her posterior calf and distended veins she didn't notice before the past few weeks. Pt was admitted and started on antibiotics, and erythema and swelling as improved but is not completely resolved. patient notes chronic stiffness in the calf and gait instability d/t pain and chronic numbness, but denies any SOB, claudication, chest pain, fevers, change in sensation, drainage, or any other relevant symptoms. Foot and tib/fib XR did not show any sign of osteomyelitis and patient refused MRI PMH: DM, HTN, DVT RLE, cervical and lumbar bulging discs PSH: , hysterectomy, laparoscopic lysis of adhesions, leg wound debridement ALL: vancomycin, penicillin, shellfish, clindamycin, latex Review of Systems - Review of Systems All systems: reviewed and no additional remarkable complaints except (as per HPI) Past Patient History - Infectious Disease Hx of Infectious Diseases: MRSA - Past Medical History & Family History Past Medical History?: Yes Pertinent Family History: mother had chronic lower extremity wounds from DM/PVD and had multiple amputati ons - Past Social History Smoking Status: Never Smoked - CARDIAC Hx Hypercholesterolemia: Yes Hx Hypertension: Yes Hx Pacemaker: No - PULMONARY Hx Chronic Obstructive Pulmonary Disease (COPD): Yes - NEUROLOGICAL Hx Neurological Disorder: No - HEENT Hx HEENT Problems: No - RENAL Hx Chronic Kidney Disease: No - ENDOCRINE/METABOLIC Hx Diabetes Mellitus Type 2: Yes - HEMATOLOGICAL/ONCOLOGICAL Hx Anemia: Yes - INTEGUMENTARY Hx Dermatological Problems: No - MUSCULOSKELETAL/RHEUMATOLOGICAL Hx Falls: No - GASTROINTESTINAL Hx Gastrointestinal Disorders: Yes Hx Gastroesophageal Reflux: Yes - GENITOURINARY/GYNECOLOGICAL Hx Genitourinary Disorders: No - PSYCHIATRIC Hx Substance Use: No - SURGICAL HISTORY Hx Surgeries: Yes Hx Section: Yes (x 1) Hx Hysterectomy: Yes Other/Comment: Fibroids/Adhesions removal - ANESTHESIA Hx Anesthesia: Yes Hx Anesthesia Reactions: No Hx Malignant Hyperthermia: No Meds Allergies/Adverse Reactions: Allergies Allergy/AdvReac Type Severity Reaction Status Date / Time adhesive tape Allergy RASH Verified 03/22/18 18:23 clindamycin Allergy RASH Verified 03/22/18 18:23 Latex, Natural Rubber Allergy RASH Verified 03/22/18 18:23 Penicillins Allergy RASH Verified 03/22/18 18:23 shellfish derived Allergy RASH Verified 03/22/18 18:23 vancomycin Allergy RASH Verified 03/22/18 18:23 - Medications Medications: Current Medications Apixaban (Eliquis) 5 mg PO BID [facility] Last Admin: 03/24/18 18:08 Dose: 5 mg Cyclobenzaprine HCl (Flexeril) 5 mg PO HS [facility] Last Admin: 03/23/18 21:15 Dose: 5 mg Gabapentin (Neurontin) 100 mg PO BID [facility] Last Admin: 03/24/18 18:08 Dose: 100 mg Glipizide (Glucotrol Xl) 2.5 mg PO ACB [facility] Last Admin: 03/24/18 11:22 Dose: 2.5 mg Glipizide (Glucotrol Xl) 5 mg PO ACD [facility] Last Admin: 03/24/18 17:25 Dose: 5 mg Hydrochlorothiazide (Microzide) 12.5 mg PO DAILY [facility] Last Admin: 03/24/18 11:21 Dose: 12.5 mg Linezolid (Zyvox 600mg/300ml D5w) 600 mg in 300 mls @ 200 mls/hr IVPB Q12H [facility]; Protocol Last Admin: 03/24/18 12:39 Dose: 200 mls/hr Insulin Aspart (Novolog) 0 unit SC ACHS [facility]; Protocol Last Admin: 03/24/18 16:16 Dose: Not Given Losartan Potassium (Cozaar) 50 mg PO DAILY [facility] Last Admin: 03/24/18 11:21 Dose: 50 mg Metformin HCl (Glucophage) 500 mg PO BIDCC [facility] Last Admin: 03/24/18 17:25 Dose: 500 mg Montelukast Sodium (Singulair) 10 mg PO HS [facility] Last Admin: 03/23/18 21:16 Dose: 10 mg Oxycodone/Acetaminophen (Percocet 5/325 Mg Tab) 1 tab PO Q6H PRN PRN Reason: leg pain Stop: 03/26/18 18:50 Pantoprazole Sodium (Protonix Ec Tab) 40 mg PO DAILY [facility] Last Admin: 03/24/18 11:24 Dose: 40 mg Rosuvastatin Calcium (Crestor) 10 mg PO HS [facility] Last Admin: 03/23/18 21:16 Dose: 10 mg Physical Exam - Constitutional Appears: Well, Non-toxic, No Acute Distress - Head Exam Head Exam: ATRAUMATIC, NORMOCEPHALIC - Eye Exam Eye Exam: Normal appearance. absent: Conjunctival injection, Scleral icterus - ENT Exam ENT Exam: Mucous Membranes Moist, Normal Oropharynx - Respiratory Exam Respiratory Exam: NORMAL BREATHING PATTERN. absent: Accessory Muscle Use, Respiratory Distress - Cardiovascular Exam Cardiovascular Exam: RRR - GI/Abdominal Exam GI & Abdominal Exam: Soft. absent: Diminished Bowel Sounds, Tenderness - Extremities Exam Additional comments: right lower leg with mild swelling, no erythema, small scab approximately 1mm in diameter on the anterior surface with no induration or erythema surrounding it. Calf tenderness to palpation and to dorsiflection of the foot. Large distended superficial veins posterior calf. Discrete subcutaneous firm area of the medial calf approximately 3cm in diameter, non-mobile, moderately tender, no skin changes or fluctuance - Neurological Exam Neurological exam: Alert, Oriented x3 - Psychiatric Exam Psychiatric exam: Normal Affect, Normal Mood - Skin Skin Exam: Dry, Intact, Normal Color, Warm Results - Vital Signs Recent Vital Signs: Last Vital Signs Temp 98 F 03/24/18 16:00 Pulse 77 03/24/18 16:00 Resp 20 03/24/18 16:00 BP 137/84 03/24/18 16:00 Pulse Ox 96 03/24/18 16:00 - Labs Result Diagrams: 03/24/18 07:07 03/24/18 07:07 Labs: Laboratory Results - last 24 hr 03/23/18 03/24/18 03/24/18 21:01 06:30 07:07 WBC 5.3 RBC 3.81 Hgb 10.8 L Hct 32.8 L MCV 86.0 MCH 28.3 MCHC 32.9 L RDW 12.9 Plt Count 259 MPV 8.4 Neut % (Auto) 50.0 Lymph % (Auto) 36.1 [place] % (Auto) 9.7 Eos % (Auto) 3.3 Baso % (Auto) 0.9 Neut # (Auto) 2.6 Lymph # (Auto) 1.9 [place] # (Auto) 0.5 Eos # (Auto) 0.2 Baso # (Auto) 0.0 Sodium Potassium Chloride Carbon Dioxide Anion Gap BUN Creatinine Est GFR ( Amer) Est GFR (Non-Af Amer) POC Glucose (mg/dL) 140 H 101 Random Glucose Calcium Total Bilirubin AST ALT Alkaline Phosphatase Total Protein Albumin Globulin Albumin/Globulin Ratio 03/24/18 03/24/18 03/24/18 07:07 11:27 11:29 WBC RBC Hgb Hct MCV MCH MCHC RDW Plt Count MPV Neut % (Auto) Lymph % (Auto) [place] % (Auto) Eos % (Auto) Baso % (Auto) Neut # (Auto) Lymph # (Auto) [place] # (Auto) Eos # (Auto) Baso # (Auto) Sodium 143 Potassium 3.5 L Chloride 105 Carbon Dioxide 25 Anion Gap 17 BUN 15 Creatinine 0.8 Est GFR ( Amer) > 60 Est GFR (Non-Af Amer) > 60 POC Glucose (mg/dL) 66 65 Random Glucose 107 H Calcium 8.5 L Total Bilirubin 0.2 AST 16 ALT 19 Alkaline Phosphatase 58 Total Protein 6.3 Albumin 3.4 L Globulin 2.9 Albumin/Globulin Ratio 1.2 03/24/18 03/24/18 11:51 16:10 WBC RBC Hgb Hct MCV MCH MCHC RDW Plt Count MPV Neut % (Auto) Lymph % (Auto) [place] % (Auto) Eos % (Auto) Baso % (Auto) Neut # (Auto) Lymph # (Auto) [place] # (Auto) Eos # (Auto) Baso # (Auto) Sodium Potassium Chloride Carbon Dioxide Anion Gap BUN Creatinine Est GFR ( Amer) Est GFR (Non-Af Amer) POC Glucose (mg/dL) 119 H 84 Random Glucose Calcium Total Bilirubin AST ALT Alkaline Phosphatase Total Protein Albumin Globulin Albumin/Globulin Ratio Assessment & Plan - Assessment and Plan (Free Text) Assessment: 62F with chronic DVT RLE with calf swelling and pain Plan: Duplex US to r/o new/worsened DVT/SVT LIZ/PVR to R/O PVD Palpable pedal pulses BL--likely not d/t PVD, no surgical intervention planned at this time--will follow up studies IV antibiotics, PT, PRN pain medication Discussed with Dr. Rodriguez, who agrees with above Mara Zheng, PGY2
[2018-03-25] MEDS: (Novolog) Insulin Aspart, Recombinant 100 u/ml 10 ml vial SC SCH ×4 (07:15→21:41)
[2018-03-25 07:17] LABS: BASO # 0.1 K/uL (0.0-0.2); EOS # 0.2 K/uL (0.0-0.7); EOS % 3.3 % (0.0-4.0); HEMOGLOBIN 11.3 g/dL (11.0-16.0); LYMPH % 33.2 % (20.0-40.0); MEAN CELL VOLUME 86.1 fL (81.0-99.0); MEAN CORPUSCULAR HGB CONC 32.5 g/dL (33.0-37.0); MEAN PLATELET VOLUME 8.8 fL (7.2-11.7); MONO # 0.6 K/uL (0.0-0.8); MONO % 9.8 % (0.0-10.0); NEUT # 3.2 K/uL (1.8-7.0); NEUT % 52.7 % (50.0-75.0); NRBC % 0.1 % (0.0-2.0); RBC 4.05 Mil/uL (3.80-5.20); RED CELL DISTRIBUTION WIDTH 12.7 % (11.5-14.5); WHITE BLOOD COUNT 6.1 K/uL (4.8-10.8)
[2018-03-25] MEDS: GlipiZIDE 2.5 mg SR Tab PO SCH ×2 (07:30→09:42)
[2018-03-25 08:01] LABS: ALB/GLOB RATIO 1.2 (1.0-2.1); ALBUMIN 3.6 g/dL (3.5-5.0); ALT/SGPT 23 U/L (9-52); AST/SGOT 21 U/L (14-36); BLOOD UREA NITROGEN 13 mg/dL (7-17); GFR NON-AFRICAN AMERICAN > 60
[2018-03-25] MEDS: Pantoprazole 40 mg EC Tab PO SCH (09:46)
[2018-03-25] MEDS ORDERED: Potassium Chloride 20 mEq ER Tab PO ONE (10:00)
[2018-03-25] MEDS: Linezolid 600 mg in D5W 300 ml 600 MG/300 ML BAG IVPB SCH (12:05)
--- NOTE | 2018-03-25 13:18 | CP.PCM.PN ---
Subjective - Date & Time of Evaluation Date of Evaluation: 03/25/18 Time of Evaluation: 06:40 - Subjective Subjective: Surgery progress note for Dr. Rodriguez Pt seen and examined this AM. No adverse events overnight. patient states that pain feels a little better, denies any fevers or SOB Objective - Vital Signs/Intake and Output Vital Signs (last 24 hours): Temp Pulse Resp BP Pulse Ox 98.1 F 84 20 114/63 98 03/25/18 07:00 03/25/18 07:00 03/25/18 07:00 03/25/18 07:00 03/25/18 07:00 Intake and Output: 03/25/18 03/25/18 06:59 18:59 Intake Total 425 Balance 425 - Medications Medications: Current Medications Apixaban (Eliquis) 5 mg PO BID [facility] Last Admin: 03/25/18 09:46 Dose: 5 mg Cyclobenzaprine HCl (Flexeril) 5 mg PO HS [facility] Last Admin: 03/24/18 21:55 Dose: 5 mg Gabapentin (Neurontin) 100 mg PO BID [facility] Last Admin: 03/25/18 09:46 Dose: 100 mg Glipizide (Glucotrol Xl) 2.5 mg PO ACB [facility] Last Admin: 03/25/18 07:30 Dose: Not Given Glipizide (Glucotrol Xl) 5 mg PO ACD [facility] Last Admin: 03/24/18 17:25 Dose: 5 mg Hydrochlorothiazide (Microzide) 12.5 mg PO DAILY [facility] Last Admin: 03/25/18 10:12 Dose: 12.5 mg Linezolid (Zyvox 600mg/300ml D5w) 600 mg in 300 mls @ 200 mls/hr IVPB Q12H [facility]; Protocol Last Admin: 03/25/18 12:05 Dose: 200 mls/hr Insulin Aspart (Novolog) 0 unit SC ACHS [facility]; Protocol Last Admin: 03/25/18 12:06 Dose: 1 unit Losartan Potassium (Cozaar) 50 mg PO DAILY [facility] Last Admin: 03/25/18 09:46 Dose: 50 mg Metformin HCl (Glucophage) 500 mg PO BIDCC [facility] Last Admin: 03/25/18 10:22 Dose: 500 mg Montelukast Sodium (Singulair) 10 mg PO HS [facility] Last Admin: 03/24/18 21:55 Dose: 10 mg Oxycodone/Acetaminophen (Percocet 5/325 Mg Tab) 1 tab PO Q6H PRN PRN Reason: leg pain Stop: 03/26/18 18:50 Pantoprazole Sodium (Protonix Ec Tab) 40 mg PO DAILY [facility] Last Admin: 03/25/18 09:46 Dose: 40 mg Rosuvastatin Calcium (Crestor) 10 mg PO HS [facility] Last Admin: 03/24/18 21:55 Dose: 10 mg - Labs Labs: 03/25/18 07:10 03/25/18 07:10 PT 13.2 SECONDS (9.7-12.2) H 03/22/18 20:52 INR 1.2 03/22/18 20:52 APTT 64 SECONDS (21-34) H 03/22/18 20:52 - Constitutional Appears: Well, Non-toxic, No Acute Distress - Head Exam Head Exam: ATRAUMATIC, NORMOCEPHALIC - Eye Exam Eye Exam: Normal appearance. absent: Conjunctival injection, Scleral icterus - ENT Exam ENT Exam: Mucous Membranes Moist, Normal Oropharynx - Respiratory Exam Respiratory Exam: NORMAL BREATHING PATTERN. absent: Accessory Muscle Use, Respiratory Distress - GI/Abdominal Exam GI & Abdominal Exam: absent: Distended - Extremities Exam Additional comments: right calf mild swelling, discrete area of increased firmness of the medial right calf tender to palpation - Neurological Exam Neurological Exam: Alert, Awake, Oriented x3 - Psychiatric Exam Psychiatric exam: Normal Affect, Normal Mood - Skin Skin Exam: Dry, Intact, Normal Color, Warm Assessment and Plan - Assessment and Plan (Free Text) Assessment: 62F with right calf swelling, history of DVT Plan: F/U US/LIZ/PVR Continue antibiotics, pRN pain medication F/U ID recs Further surgical plans pending further evaluation Discussed with Dr. Rodriguez, who agrees with above Mara Zheng, PGY2
[2018-03-25] MEDS: GlipiZIDE 5 mg SR Tab PO SCH (17:04)
[2018-03-25] MEDS: Oxycodone/Acetaminophen 5/325 mg Tab PO PRN ×2 (17:57→23:04)
[2018-03-26] MEDS: Linezolid 600 mg in D5W 300 ml 600 MG/300 ML BAG IVPB SCH ×2 (00:10→13:36)
--- NOTE | 2018-03-26 05:44 | PN ---
DATE: 03/25/2018 SUBJECTIVE: The patient was seen on 03/25/2018, with Aleyda Ramon, the nurse practitioner. The patient was complaining of some pain in the left leg that was improving. There was no palpitation. No chest pain. PHYSICAL EXAMINATION: VITAL SIGNS: Stable. LUNGS: Clear. HEART: Regular rate and rhythm. ABDOMEN: Soft. EXTREMITIES: There is some mild tenderness in the left leg. ASSESSMENT AND PLAN: The patient had a consult with Dr. Maharaj, for vascular problems and bone scan was done. Results were pending, and we are going to follow that in the morning on 03/26/2018. Ambrocio Ramirez MD
[2018-03-26 06:56] LABS: BLOOD UREA NITROGEN 13 mg/dL (7-17); CALCIUM 9.2 mg/dl (8.6-10.4); GFR NON-AFRICAN AMERICAN > 60
--- NOTE | 2018-03-26 07:22 | CP.PCM.PN ---
Subjective - Date & Time of Evaluation Date of Evaluation: 03/26/18 Time of Evaluation: 07:19 - Subjective Subjective: Vascular Surgery: Dr Rodriguez Pt S&E. NAEO. No complaints. Still with RLE pain. LE duplex completed. Pending bone scans to rule out osteo. On IV abx Objective - Vital Signs/Intake and Output Vital Signs (last 24 hours): Temp Pulse Resp BP Pulse Ox 98.1 F 91 H 20 136/77 95 03/25/18 23:40 03/25/18 23:40 03/25/18 23:40 03/25/18 23:40 03/25/18 23:40 Intake and Output: 03/26/18 03/26/18 06:59 18:59 Intake Total 340 Balance 340 - Medications Medications: Current Medications Apixaban (Eliquis) 5 mg PO BID [facility] Last Admin: 03/25/18 18:08 Dose: 5 mg Cyclobenzaprine HCl (Flexeril) 5 mg PO HS [facility] Last Admin: 03/25/18 21:38 Dose: 5 mg Gabapentin (Neurontin) 100 mg PO BID [facility] Last Admin: 03/25/18 18:04 Dose: 100 mg Glipizide (Glucotrol Xl) 2.5 mg PO ACB [facility] Last Admin: 03/25/18 07:30 Dose: Not Given Glipizide (Glucotrol Xl) 5 mg PO ACD [facility] Last Admin: 03/25/18 17:04 Dose: 5 mg Hydrochlorothiazide (Microzide) 12.5 mg PO DAILY [facility] Last Admin: 03/25/18 10:12 Dose: 12.5 mg Linezolid (Zyvox 600mg/300ml D5w) 600 mg in 300 mls @ 200 mls/hr IVPB Q12H [facility]; Protocol Last Admin: 03/26/18 00:10 Dose: 200 mls/hr Insulin Aspart (Novolog) 0 unit SC ACHS [facility]; Protocol Last Admin: 03/25/18 21:41 Dose: Not Given Losartan Potassium (Cozaar) 50 mg PO DAILY [facility] Last Admin: 03/25/18 09:46 Dose: 50 mg Metformin HCl (Glucophage) 500 mg PO BIDCC [facility] Last Admin: 03/25/18 17:03 Dose: 500 mg Montelukast Sodium (Singulair) 10 mg PO HS [facility] Last Admin: 03/25/18 21:38 Dose: 10 mg Oxycodone/Acetaminophen (Percocet 5/325 Mg Tab) 1 tab PO Q6H PRN PRN Reason: leg pain Stop: 03/26/18 18:50 Last Admin: 03/25/18 23:04 Dose: 1 tab Pantoprazole Sodium (Protonix Ec Tab) 40 mg PO DAILY [facility] Last Admin: 03/25/18 09:46 Dose: 40 mg Rosuvastatin Calcium (Crestor) 10 mg PO HS [facility] Last Admin: 03/25/18 21:38 Dose: 10 mg - Labs Labs: 03/25/18 07:10 03/26/18 06:37 PT 13.2 SECONDS (9.7-12.2) H 03/22/18 20:52 INR 1.2 03/22/18 20:52 APTT 64 SECONDS (21-34) H 03/22/18 20:52 - Constitutional Appears: Non-toxic, No Acute Distress - ENT Exam ENT Exam: Mucous Membranes Moist - Cardiovascular Exam Cardiovascular Exam: REGULAR RHYTHM - GI/Abdominal Exam GI & Abdominal Exam: Soft. absent: Distended, Tenderness - Extremities Exam Extremities Exam: absent: Pedal Edema Additional comments: palpable pulses 2+ Assessment and Plan - Assessment and Plan (Free Text) Assessment: 62F with RLE cellulitis Plan: cont abx as per ID no evidence of arterial insufficiency pending bone scans no plans for vascular intervention will d/w Jennifer Balderas, PGY4
[2018-03-26] MEDS: (Novolog) Insulin Aspart, Recombinant 100 u/ml 10 ml vial SC SCH ×4 (08:04→22:23)
[2018-03-26] MEDS: Pantoprazole 40 mg EC Tab PO SCH (10:30)
[2018-03-26] MEDS: GlipiZIDE 2.5 mg SR Tab PO SCH (10:36)
--- NOTE | 2018-03-26 15:59 | CP.PCM.PN ---
Subjective - Date & Time of Evaluation Date of Evaluation: 03/26/18 Time of Evaluation: 07:00 - Subjective Subjective: no fever c/o pain IV rx reordered recc podiatry eval Objective - Vital Signs/Intake and Output Vital Signs (last 24 hours): Temp Pulse Resp BP Pulse Ox 98.1 F 71 18 121/81 100 03/26/18 15:40 03/26/18 15:40 03/26/18 15:40 03/26/18 15:40 03/26/18 15:40 Intake and Output: 03/26/18 03/26/18 06:59 18:59 Intake Total 340 Balance 340 - Medications Medications: Current Medications Apixaban (Eliquis) 5 mg PO BID [facility] Last Admin: 03/26/18 10:30 Dose: 5 mg Cyclobenzaprine HCl (Flexeril) 5 mg PO HS [facility] Last Admin: 03/25/18 21:38 Dose: 5 mg Gabapentin (Neurontin) 100 mg PO BID [facility] Last Admin: 03/26/18 10:30 Dose: 100 mg Glipizide (Glucotrol Xl) 2.5 mg PO ACB [facility] Last Admin: 03/26/18 10:36 Dose: 2.5 mg Glipizide (Glucotrol Xl) 5 mg PO ACD [facility] Last Admin: 03/25/18 17:04 Dose: 5 mg Hydrochlorothiazide (Microzide) 12.5 mg PO DAILY [facility] Last Admin: 03/26/18 10:29 Dose: 12.5 mg Linezolid (Zyvox 600mg/300ml D5w) 600 mg in 300 mls @ 200 mls/hr IVPB Q12H [facility]; Protocol Last Admin: 03/26/18 13:36 Dose: 200 mls/hr Insulin Aspart (Novolog) 0 unit SC ACHS [facility]; Protocol Last Admin: 03/26/18 11:37 Dose: Not Given Losartan Potassium (Cozaar) 50 mg PO DAILY [facility] Last Admin: 03/26/18 10:37 Dose: Not Given Metformin HCl (Glucophage) 500 mg PO BIDCC [facility] Last Admin: 03/26/18 10:29 Dose: 500 mg Montelukast Sodium (Singulair) 10 mg PO HS [facility] Last Admin: 03/25/18 21:38 Dose: 10 mg Oxycodone/Acetaminophen (Percocet 5/325 Mg Tab) 1 tab PO Q6H PRN PRN Reason: leg pain Stop: 03/26/18 18:50 Last Admin: 03/25/18 23:04 Dose: 1 tab Pantoprazole Sodium (Protonix Ec Tab) 40 mg PO DAILY [facility] Last Admin: 03/26/18 10:30 Dose: 40 mg Rosuvastatin Calcium (Crestor) 10 mg PO HS [facility] Last Admin: 03/25/18 21:38 Dose: 10 mg - Labs Labs: 03/25/18 07:10 03/26/18 06:37 PT 13.2 SECONDS (9.7-12.2) H 03/22/18 20:52 INR 1.2 03/22/18 20:52 APTT 64 SECONDS (21-34) H 03/22/18 20:52 - Constitutional Appears: Non-toxic, Chronically Ill - Head Exam Head Exam: NORMOCEPHALIC - Eye Exam Eye Exam: PERRL - ENT Exam ENT Exam: Mucous Membranes Dry - Neck Exam Neck Exam: absent: Lymphadenopathy - Respiratory Exam Respiratory Exam: Decreased Breath Sounds - Cardiovascular Exam Cardiovascular Exam: REGULAR RHYTHM - GI/Abdominal Exam GI & Abdominal Exam: Distended, Soft - Rectal Exam Rectal Exam: Deferred - Exam Exam: NORMAL INSPECTION - Extremities Exam Extremities Exam: absent: Pedal Edema - Back Exam Back Exam: absent: CVA tenderness (L), CVA tenderness (R) Assessment and Plan (1) Cellulitis Status: Acute - Assessment and Plan (Free Text) Assessment: c/o pain IV rx reordered recc podiatry eval
[2018-03-26] MEDS: GlipiZIDE 5 mg SR Tab PO SCH (18:15)
[2018-03-26] MEDS: guaiFENesin DM 200 mg-20 mg/10 ml UD PO PRN (20:22)
[2018-03-27] MEDS: Linezolid 600 mg in D5W 300 ml 600 MG/300 ML BAG IVPB SCH ×2 (00:04→12:32)
--- NOTE | 2018-03-27 00:08 | PN ---
DATE: 03/26/2018 SUBJECTIVE: Today, the patient is alert and awake. Decreased pain to the leg. He is complaining of congestive cough; however, there are no fever, no chest pain and no palpitation. PHYSICAL EXAMINATION: VITAL SIGNS: The patient has a blood pressure of 121/81, pulse 91, respiration 18, temperature 98.1. NECK: Supple. No JVD. LUNGS: Clear. HEART: Regular rate and rhythm. ABDOMEN: Soft and benign. EXTREMITIES: Slight tenderness to the left leg and redness of the lower extremity is resolved, but there is some mild tenderness to the calf and extending anterior aspect of the left leg. LABORATORY DATA: Labs done yesterday showed a WBC 6.1, hemoglobin 11.2, hematocrit 34.9. The result of the bone scan is pending as well as arterial Doppler to the lower extremities. ASSESSMENT AND PLAN: So, we will continue the same antibiotics. Ambrocio Ramirez MD
[2018-03-27] MEDS: guaiFENesin DM 200 mg-20 mg/10 ml UD PO PRN (03:49)
--- NOTE | 2018-03-27 06:56 | PN ---
DATE: 03/24/2018 SUBJECTIVE: Today, the patient is alert and awake, still complaining of some pain to the left leg and redness. PHYSICAL EXAMINATION: VITAL SIGNS: The patient has a blood pressure of 127/84, pulse 77, respirations 20, and temperature 98 degrees Fahrenheit. NECK: Supple. LUNGS: Clear. HEART: Regular rate and rhythm. ABDOMEN: Soft, obese, and nontender. EXTREMITIES: There is some tenderness in the left leg and left calf. There is also some redness. LABORATORY DATA: The patient has a blood test done. WBC was 5.3, hemoglobin 10.8, hematocrit 32.8, and platelets are 259. Chemistry showed sodium is 143, potassium 3.5, chloride 105, bicarb 25, BUN 16, creatinine 0.8, glucose 107, and calcium 8.5. AST is 16, ALT 19, and alkaline phosphatase 58. ASSESSMENT AND PLAN: The plan is that we are going to continue the therapy, and the consult with Dr. Maharaj is also appreciated. Ambrocio Ramirez MD
[2018-03-27] MEDS: (Novolog) Insulin Aspart, Recombinant 100 u/ml 10 ml vial SC SCH ×2 (07:28→12:31)
[2018-03-27 07:45] VITALS: RESP 20
[2018-03-27 07:46] LABS: BASO % 0.8 % (0.0-2.0); EOS # 0.1 K/uL (0.0-0.7); EOS % 2.1 % (0.0-4.0); HEMOGLOBIN 11.8 g/dL (11.0-16.0); LYMPH % 35.8 % (20.0-40.0); MEAN CELL VOLUME 86.3 fL (81.0-99.0); MEAN CORPUSCULAR HEMOGLOBIN 28.5 pg (27.0-31.0); MEAN PLATELET VOLUME 8.6 fL (7.2-11.7); MONO # 0.5 K/uL (0.0-0.8); MONO % 9.4 % (0.0-10.0); NEUT # 2.9 K/uL (1.8-7.0); NEUT % 51.9 % (50.0-75.0); NRBC % 0.1 % (0.0-2.0); RBC 4.15 Mil/uL (3.80-5.20); WHITE BLOOD COUNT 5.6 K/uL (4.8-10.8)
[2018-03-27 08:17] LABS: ALB/GLOB RATIO 1.2 (1.0-2.1); ALBUMIN 3.8 g/dL (3.5-5.0); ALT/SGPT 22 U/L (9-52); AST/SGOT 22 U/L (14-36); BLOOD UREA NITROGEN 13 mg/dL (7-17); CALCIUM 9.2 mg/dl (8.6-10.4); GFR NON-AFRICAN AMERICAN > 60
[2018-03-27] MEDS: GlipiZIDE 2.5 mg SR Tab PO SCH (08:30)
[2018-03-27] MEDS: Pantoprazole 40 mg EC Tab PO SCH (10:38)
--- NOTE | 2018-03-27 12:01 | NM ---
Date of service: 03/24/2018 PROCEDURE: Three-phase bone scan HISTORY: Right lower extremity cellulitis, osteomyelitis suspected. COMPARISON: 08/26/2014, 01/28/2015 and 10/27/2016 serial three-phase bone scans. 03/22/2018 right tibia and fibula radiographs. TECHNIQUE: 24.3 mCi technetium 99 M MDP administered intravenously. Three-phase bone scan per institutional protocol. FINDINGS: Flow component: Increased flow to the right lower extremity anatomically corresponding to and extending from the calf to the ankle region. Blood pool component: Accumulation of radionuclide within soft tissues of an edematous right lower extremity without osseous abnormality. Delayed images at 3:00: Degenerative changes in both knees left greater than right. IMPRESSION: Findings consistent with right lower extremity/primarily calf cellulitis without an acute osseous component.
--- NOTE | 2018-03-27 13:15 | CP.PCM.PN ---
Subjective - Date & Time of Evaluation Date of Evaluation: 03/27/18 Time of Evaluation: 10:00 - Subjective Subjective: cultures neg tolerating zyvox pulses ++ Objective - Vital Signs/Intake and Output Vital Signs (last 24 hours): Temp Pulse Resp BP Pulse Ox 97.8 F 109 H 20 141/91 H 96 03/27/18 07:00 03/27/18 07:00 03/27/18 07:00 03/27/18 07:00 03/27/18 07:00 Intake and Output: 03/27/18 03/27/18 06:59 18:59 Intake Total 1250 Balance 1250 - Medications Medications: Current Medications Apixaban (Eliquis) 5 mg PO BID [facility] Last Admin: 03/27/18 10:44 Dose: 5 mg Cyclobenzaprine HCl (Flexeril) 5 mg PO HS [facility] Last Admin: 03/26/18 22:22 Dose: 5 mg Gabapentin (Neurontin) 100 mg PO BID [facility] Last Admin: 03/27/18 12:19 Dose: Not Given Glipizide (Glucotrol Xl) 2.5 mg PO ACB [facility] Last Admin: 03/27/18 08:30 Dose: 2.5 mg Glipizide (Glucotrol Xl) 5 mg PO ACD [facility] Last Admin: 03/26/18 18:15 Dose: 5 mg Guaifenesin/Dextromethorphan (Robitussin Dm) 10 ml PO Q4H PRN PRN Reason: Cough and congestion Last Admin: 03/27/18 03:49 Dose: 10 ml Hydrochlorothiazide (Microzide) 12.5 mg PO DAILY [facility] Last Admin: 03/27/18 10:38 Dose: 12.5 mg Linezolid (Zyvox 600mg/300ml D5w) 600 mg in 300 mls @ 200 mls/hr IVPB Q12H [facility]; Protocol Last Admin: 03/27/18 12:32 Dose: 200 mls/hr Insulin Aspart (Novolog) 0 unit SC ACHS [facility]; Protocol Last Admin: 03/27/18 12:31 Dose: 2 unit Losartan Potassium (Cozaar) 50 mg PO DAILY [facility] Last Admin: 03/27/18 10:46 Dose: 50 mg Metformin HCl (Glucophage) 500 mg PO BIDCC [facility] Last Admin: 03/27/18 09:00 Dose: 500 mg Montelukast Sodium (Singulair) 10 mg PO HS [facility] Last Admin: 03/26/18 22:23 Dose: 10 mg Pantoprazole Sodium (Protonix Ec Tab) 40 mg PO DAILY [facility] Last Admin: 03/27/18 10:38 Dose: 40 mg Rosuvastatin Calcium (Crestor) 10 mg PO HS [facility] Last Admin: 03/26/18 22:22 Dose: 10 mg - Labs Labs: 03/27/18 07:22 03/27/18 07:22 PT 13.2 SECONDS (9.7-12.2) H 03/22/18 20:52 INR 1.2 03/22/18 20:52 APTT 64 SECONDS (21-34) H 03/22/18 20:52 Assessment and Plan (1) Cellulitis Status: Acute
--- NOTE | 2018-03-27 14:12 | CP.PCM.PN ---
Subjective - Date & Time of Evaluation Date of Evaluation: 03/27/18 Time of Evaluation: 14:11 Objective - Vital Signs/Intake and Output Vital Signs (last 24 hours): Temp Pulse Resp BP Pulse Ox 97.8 F 109 H 20 141/91 H 96 03/27/18 07:00 03/27/18 07:00 03/27/18 07:00 03/27/18 07:00 03/27/18 07:00 Intake and Output: 03/27/18 03/27/18 06:59 18:59 Intake Total 1250 Balance 1250 - Medications Medications: Current Medications Apixaban (Eliquis) 5 mg PO BID [facility] Last Admin: 03/27/18 10:44 Dose: 5 mg Cyclobenzaprine HCl (Flexeril) 5 mg PO HS [facility] Last Admin: 03/26/18 22:22 Dose: 5 mg Gabapentin (Neurontin) 100 mg PO BID [facility] Last Admin: 03/27/18 12:19 Dose: Not Given Glipizide (Glucotrol Xl) 2.5 mg PO ACB [facility] Last Admin: 03/27/18 08:30 Dose: 2.5 mg Glipizide (Glucotrol Xl) 5 mg PO ACD [facility] Last Admin: 03/26/18 18:15 Dose: 5 mg Guaifenesin/Dextromethorphan (Robitussin Dm) 10 ml PO Q4H PRN PRN Reason: Cough and congestion Last Admin: 03/27/18 03:49 Dose: 10 ml Hydrochlorothiazide (Microzide) 12.5 mg PO DAILY [facility] Last Admin: 03/27/18 10:38 Dose: 12.5 mg Linezolid (Zyvox 600mg/300ml D5w) 600 mg in 300 mls @ 200 mls/hr IVPB Q12H [facility]; Protocol Last Admin: 03/27/18 12:32 Dose: 200 mls/hr Insulin Aspart (Novolog) 0 unit SC ACHS [facility]; Protocol Last Admin: 03/27/18 12:31 Dose: 2 unit Losartan Potassium (Cozaar) 50 mg PO DAILY [facility] Last Admin: 03/27/18 10:46 Dose: 50 mg Metformin HCl (Glucophage) 500 mg PO BIDCC [facility] Last Admin: 03/27/18 09:00 Dose: 500 mg Montelukast Sodium (Singulair) 10 mg PO HS [facility] Last Admin: 03/26/18 22:23 Dose: 10 mg Pantoprazole Sodium (Protonix Ec Tab) 40 mg PO DAILY [facility] Last Admin: 03/27/18 10:38 Dose: 40 mg Rosuvastatin Calcium (Crestor) 10 mg PO HS [facility] Last Admin: 03/26/18 22:22 Dose: 10 mg - Labs Labs: 03/27/18 07:22 03/27/18 07:22 PT 13.2 SECONDS (9.7-12.2) H 03/22/18 20:52 INR 1.2 03/22/18 20:52 APTT 64 SECONDS (21-34) H 03/22/18 20:52 Assessment and Plan - Assessment and Plan (Free Text) Assessment: FOLLOW UP WITH CARMELO IN 1-2 WEEK AT HIS OFFICE ---CALL FOR APPOINTMENT FOLLOW UP WITH DR MAYS AT HIS OFFICE ----CALL FOR APPOINTMENT CONTINUE HOME MEDICATION NEW PRESCRIPTION GIVEN ZYVOX 600 MG PO Q12H FOR 5 DAYS HCTZ 12.5 MG PO DAILY [facility] T[facility]ERATED CALL DR RHODES OR GO TO THE EMERGENCY ROOM IF SYMPTOM RETURN OR WORSENING
--- NOTE | 2018-03-27 14:30 | VASCLAB ---
Date of service: 03/25/2018 PROCEDURE: Right Lower Extremity Venous Duplex Exam. HISTORY: right lower leg swelling/pain, R/O DVT PRIORS: None. TECHNIQUE: Right common femoral, femoral, popliteal and posterior tibial, peroneal and great saphenous veins were evaluated. Flow was assessed with color Doppler, compressibility, assessment of phasic flow and augmentation response. Report prepared by medical technologist microbiology. FINDINGS: RIGHT: 1. Common Femoral Vein: 1.1. Compressibility - Fully compressible: Thrombus - None: Flow - Phasic: Augmentation -Normal: Reflux - None. 2. Femoral Vein: 2.1. Compressibility - Fully compressible: Thrombus - None: Flow - Phasic: Augmentation -Normal: Reflux - None. 3. Popliteal Vein: 3.1. Compressibility - Fully compressible: Thrombus - None: Flow - Phasic: Augmentation -Normal: Reflux - None. 4. Posterior Tibial Vein: 4.1. Compressibility - Fully compressible: Thrombus - None: Flow - Phasic: Augmentation -Normal: Reflux - None. 5. Peroneal Vein: 5.1. Compressibility - Fully compressible: Thrombus - None: Flow - Phasic: Augmentation -Normal: Reflux - None. 6. Great Saphenous Vein: 6.1. Compressibility - Fully compressible: Thrombus -None: Flow - Phasic: Augmentation - Normal: Reflux - None. OTHER FINDINGS: IMPRESSION: No evidence acute of deep or superficial vein thrombosis of the right lower extremity with excellent venous flow. Normal valve function noted of the right side. Chronic wall thickening noted in the right femoral vein and popliteal vein. Normal venous flow noted in the left common femoral vein.
[2018-03-27] MEDS ORDERED: Influenza Vaccine 60 MCG/0.5 ML SYR (3 yr & up) IM ONE (15:16)
[2018-03-27 15:49] VITALS: BP 133/80; PULSE 90; TEMP 98; O2SAT 98
--- NOTE | 2018-03-28 06:57 | PN ---
DATE: 03/27/2018 SUBJECTIVE: Today, the patient is alert and awake. Denied any pain to the left leg. No shortness of breath. No dizziness. No chest pain. PHYSICAL EXAMINATION: VITAL SIGNS: The patient has blood pressure of 133/80, pulse is 90, respirations 20, temperature 98 degrees Fahrenheit. NECK: Supple. No JVD. LUNGS: Clear. HEART: Regular rate and rhythm. ABDOMEN: Soft and obese. Positive bowel sounds. EXTREMITIES: There is mild decreased swelling of the left leg. LABORATORY DATA: The patient had a bone scan that was done that has revealed cellulitis of the leg, but no osteomyelitis. PLAN: We are going to consider to change the antibiotic IV to p.o., and consider to discharge the patient after following with Dr. Maharaj of Infectious Disease. Ambrocio Ramirez MD
--- NOTE | 2018-03-28 08:11 | DS ---
HISTORY OF PRESENT ILLNESS: This patient is a 62-year-old female with history of chronic DVT, hypertension, diabetes, and facial neuropathy. The patient was admitted because of cellulitis of the left leg and distal leg that has occluded DVT. The patient had symptoms of pain, redness; the left leg also was red about four days prior to coming to my office. In my office, I found this patient, and the leg was as described; so I sent the patient for admission which was on the day after. PHYSICAL EXAMINATION: LUNGS: Clear. HEART: Regular. ABDOMEN: Soft. Tender to the epigastric area which is old. EXTREMITIES: The left leg was red, tender and warm. The patient has consult with B[facility] oFng, and also with Dr. Rodriguez. The patient had bone scan that was negative for osteomyelitis. The patient was put on antibiotic therapy and now the pain has subsided. The redness was resolved; therefore, the patient will be discharged home on Levaquin and current medication. The case was discussed with Kenan, the nurse practitioner. Ambrocio Ramirez MD
--- NOTE | 2018-03-28 12:34 | VASCLAB ---
Date of service: 03/27/2018 STUDY DESCRIPTION: Lower Extremity Arterial Exam (PVR). HISTORY: PVD PRIORS: None. TECHNIQUE: Pulse volume recording waveforms and segmental pressures of bilateral lower extremities at multiple levels were obtained. Ankle Brachial Indices (ABIs) were calculated. Report prepared by MITZI Melgar, RVT RIGHT LOWER EXTREMITY: * Brachial artery: Pressure - 144 mmHg. * High thigh: Pressure - mmHg: Ratio - : PVR waveform - Pulsatile * Low thigh: Pressure - 142 mmHg: Ratio - 0.97 PVR waveform: Pulsatile * Calf: Pressure - 145 mmHg: Ratio - 0.99 PVR waveform: Pulsatile * Posterior tibial Artery: Pressure - 155 mmHg: Ratio - 1.05 PVR waveform: Pulsatile * Dorsalis pedis Artery: Pressure - 166 mmHg: Ratio - 1.66 PVR waveform: Pulsatile * Great toe: Pressure - mmHg: Ratio - PVR waveform: Ankle brachial index (LIZ): 1.13 LEFT LOWER EXTREMITY: * Brachial artery: Pressure - 147 mmHg. * High thigh: Pressure - mmHg: Ratio - : PVR waveform - Pulsatile * Low thigh: Pressure - 142 mmHg: Ratio - 0.97 PVR waveform: Pulsatile * Calf: Pressure - 140 mmHg: Ratio - 0.95 PVR waveform: Pulsatile * Posterior tibial Artery: Pressure - 142 mmHg: Ratio - 0.97 PVR waveform: Pulsatile * Dorsalis pedis Artery: Pressure - 161 mmHg: Ratio - 1.10 PVR waveform: Pulsatile * Great toe: Pressure - mmHg: Ratio - PVR waveform: Ankle brachial index (LIZ): 1.10 OTHER FINDINGS: Right: Left: IMPRESSION: Right: There was no evidence of hemodynamically significant arterial insufficiency in the right lower extremity. Left: There was no evidence of hemodynamically significant arterial insufficiency in the left lower extremity.
== END 2018-03-27 16:20 | disposition home or self-care (01) | DRG 603 ==
LOC: C.ER 18:09 → C.9E 20:06 → C.5S 22:54 → OBSVTOIN 03-24 15:07
PROVIDERS: ADMIT Specialist; ATTEND Specialist
DX: L03.115 Cellulitis of right lower limb (principal); I82.5Z1 Chronic embolism and thrombosis of unspecified deep veins of right distal lower extremity; J44.9 Chronic obstructive pulmonary disease, unspecified; I10 Essential (primary) hypertension; G47.33 Obstructive sleep apnea (adult) (pediatric); G51.9 Disorder of facial nerve, unspecified; E11.40 Type 2 diabetes mellitus with diabetic neuropathy, unspecified; E11.51 Type 2 diabetes mellitus with diabetic peripheral angiopathy without gangrene; E78.00 Pure hypercholesterolemia, unspecified; F32.9 Major depressive disorder, single episode, unspecified; K21.9 Gastro-esophageal reflux disease without esophagitis; Z82.49 Family history of ischemic heart disease and other diseases of the circulatory system

== ENCOUNTER 2018-07-05 11:32 | Outpatient (CLI) | payer MEDICARE, MEDICAID | END 2018-07-05 11:33 | disposition home or self-care (01) | LOC: C.VASC 11:32 ==

== ENCOUNTER 2018-07-11 18:48 | Outpatient (CLI) | payer MEDICARE, MEDICAID | END 2018-07-11 18:49 | disposition home or self-care (01) | LOC: C.SLEEP 18:49 ==

== ENCOUNTER 2018-08-04 14:21 | Inpatient (IN) | payer MEDICARE, MEDICAID ==
[2018-08-04 14:21] VITALS: BMI 32.4
[2018-08-04] MEDS ORDERED: Oxycodone/Acetaminophen 5/325 mg Tab PO STA (14:53)
[2018-08-04] MEDS ORDERED: Oxycodone/Acetaminophen 5/325 mg Tab ONE (15:00)
--- NOTE | 2018-08-04 15:10 | C.PDOC ---
History Of Present Illness 62 year old female patient with history of DVT sent by podiatry, Dr. Gale to evaluate patient for right leg pain for 3 weeks. Patient reports leg pain is progressively getting worse. Patient has swollen right heel and swollen calf. Patient has been taking Levaquin and doxycycline with no improvement. Patient notes she has shortness of breath when she walks. Patient has no other associated symptoms or complaints. PMD: Dr. Ramirez Podiatry: Dr. Gale Time Seen by Provider: 08/04/18 14:45 Chief Complaint (Nursing): Lower Extremity Problem/Injury History Per: Patient History/Exam Limitations: no limitations Onset/Duration Of Symptoms: Days (x3 weeks) Current Symptoms Are (Timing): Still Present Past Medical History Reviewed: Historical Data, Nursing Documentation, Vital Signs Vital Signs: Last Vital Signs Temp 98.3 F 08/04/18 14:25 Pulse 94 H 08/04/18 14:25 Resp 18 08/04/18 14:25 BP 120/81 08/04/18 14:25 Pulse Ox 98 08/04/18 14:25 - Medical History PMH: Anemia, Arthritis, Back Problems, COPD, Diabetes, Deep Vein Thrombosis (chronic or rt leg), HTN, Hypercholesterolemia Surgical History: Endoscopy - [facility] Procedures ANESTH INJECT SYMP NERVE (10/17/14) COLONOSCOPY (06/14/14) ENDO EXCISION/DEST OF LESION OR TISSUE OF STOMACH (06/14/14) EXERCISE TREATMENT OF MUSCULOSK WHOLE USING ASSIST EQUIPMENT (10/29/16) HOME MANAGEMENT TREATMENT USING ASSIST EQUIPMENT (10/29/16) INFLUENZA VACCINATION (03/22/13) NON-INVASIVE MECHANICAL VENTILATION (01/05/13) PERIPH NERVE DESTRUCTION (12/05/14) Family History: States: Unknown Family Hx - Social History Hx Tobacco Use: No Hx Alcohol Use: No Hx Substance Use: No - Immunization History Hx Tetanus Toxoid Vaccination: (UNSURE) Hx Influenza Vaccination: Yes Hx Pneumococcal Vaccination: Yes Review Of Systems Constitutional: Negative for: Fever, Weakness Cardiovascular: Negative for: Chest Pain, Palpitations Respiratory: Positive for: SOB with Excertion. Negative for: Cough Gastrointestinal: Negative for: Nausea, Vomiting Genitourinary: Negative for: Dysuria, Frequency, Incontinence Musculoskeletal: Positive for: Leg Pain (right), Foot Pain (right heel pain ) Physical Exam - Physical Exam Appears: Non-toxic, No Acute Distress Skin: Warm, Dry, No Rash, Other (erythematous tense tender skin to right lower leg calf to foot) Head: Atraumatic, Normacephalic Eye(s): bilateral: Normal Inspection Oral Mucosa: Moist Throat: Normal Neck: Normal ROM, Supple Chest: Symmetrical Cardiovascular: Rhythm Regular, No Murmur Respiratory: Normal Breath Sounds, No Rales, No Rhonchi, No Wheezing Gastrointestinal/Abdominal: Soft, No Tenderness Back: No CVA Tenderness Extremity: Normal ROM, Tenderness ( right lower leg calf to foot), Calf Tenderness, No Deformity, Swelling (to right calf extending to foot), Other (redness right calf and heel ) Pulses: Left Dorsalis Pedis: Normal, Right Dorsalis Pedis: Normal Neurological/Psych: Oriented x3, Normal Speech Gait: With Assistance (uses cane) ED Course And Treatment - Laboratory Results Result Diagrams: 08/04/18 15:20 08/04/18 15:20 Lab Interpretation: Normal ECG: Interpreted By Me, Viewed By Me ECG Rhythm: Sinus Rhythm Interpretation Of ECG: sinus rhythm with premature supraventricular complexes. right bundle branch block Rate From EC O2 Sat by Pulse Oximetry: 98 (RA) Pulse Ox Interpretation: Normal Medical Decision Making Medical Decision Making: Impression: Right leg pain, swelling, redness likely cellulitis vs DVT Plan: -- chem labs -- blood work -- Percocet, patient declined --Toradol ordered instead Progress: Venous doppler of RLE was negative. Labs reviewed, no leukocytosis, shift or bands. [address] Ramirez who requests to admit to his service Will also consult podiatry. attempt to reach Dr Gale, unsuccessful. Additional orders placed for dinner, EKG, Chest xray Disposition - Disposition Disposition: HOSPITALIZED Disposition Time: 16:33 Condition: STABLE - POA Present On Arrival: None - Clinical Impression Clinical Impression: Cellulitis of right leg - PA / [employer]LLNESS PRACTITIONER / Resident Statement / has reviewed & agrees with the documentation as recorded. - Scribe Statement The provider has reviewed the documentation as recorded by the Marcelle Barraza Do All medical record entries made by the Scribe were at my direction and personally dictated by me. I have reviewed the chart and agree that the record accurately reflects my personal performance of the history, physical exam, medical decision making, and the department course for this patient. I have also personally directed, reviewed, and agree with the discharge instructions and disposition. Decision To Admit - Pt Status Changed To: Hospital Disposition Of: Inpatient - Admit Certification Admit to Inpatient:: After my assessment, the patient will require hospitalization for at least two midnights. This is because of the severity of symptoms shown, intensity of services needed, and/or the medical risk in this patient being treated as an outpatient. - InPatient: Physician Admission Certification: I certify that this patient requires 2 or more midnights of care for the following reason:: Patient with cellulitis or RLE tried outpatient Abx and no improvement. Pt is diabetic with multiple allergies, will need inpatient ID consult and further management - . Bed Request Type: Regular Admitting Physician: Ambrocio Ramirez Patient Diagnosis: Cellulitis of right leg
[2018-08-04 15:25] LABS: BASO # 0.1 K/uL (0.0-0.2); EOS # 0.1 K/uL (0.0-0.7); EOS % 1.8 % (0.0-4.0); HEMOGLOBIN 11.2 g/dL (11.0-16.0); LYMPH % 34.1 % (20.0-40.0); MEAN CELL VOLUME 86.9 fL (81.0-99.0); MEAN CORPUSCULAR HGB CONC 32.3 g/dL (33.0-37.0); MEAN PLATELET VOLUME 8.4 fL (7.2-11.7); MONO # 0.4 K/uL (0.0-0.8); MONO % 7.2 % (0.0-10.0); NEUT # 3.2 K/uL (1.8-7.0); NEUT % 55.9 % (50.0-75.0); RBC 4.01 Mil/uL (3.80-5.20); RED CELL DISTRIBUTION WIDTH 13.3 % (11.5-14.5); WHITE BLOOD COUNT 5.7 K/uL (4.8-10.8)
[2018-08-04 15:40] LABS: ALB/GLOB RATIO 1.5 (1.0-2.1); ALBUMIN 4.4 g/dL (3.5-5.0); ALT/SGPT 13 U/L (9-52); AST/SGOT 18 U/L (14-36); BLOOD UREA NITROGEN 16 mg/dL (7-17); CALCIUM 9.3 mg/dl (8.6-10.4); GFR NON-AFRICAN AMERICAN > 60
[2018-08-04 15:48] LABS: B-TYPE NATRIURETIC PEPTIDE 67.7 pg/mL (0-900)
[2018-08-04] MEDS ORDERED: Glucagon Recombinant 1 mg Inj IM PRN (17:05)
[2018-08-04] MEDS ORDERED: Dextrose 50% SYRINGE Inj (50 ml) IV PRN (17:05)
--- NOTE | 2018-08-04 17:11 | VASCLAB ---
Date of service: 08/04/2018 PROCEDURE: Right Lower Extremity Venous Duplex Exam. HISTORY: hx dvt PRIORS: None. TECHNIQUE: Right common femoral, femoral, popliteal and posterior tibial, peroneal and great saphenous veins were evaluated. Flow was assessed with color Doppler, compressibility, assessment of phasic flow and augmentation response. Report prepared by MITZI Melgar, RVT FINDINGS: RIGHT: 1. Common Femoral Vein: 1.1. Compressibility - Fully compressible: Thrombus - None: Flow - Phasic: Augmentation -Normal: Reflux - None. 2. Femoral Vein: 2.1. Compressibility - Fully compressible: Thrombus - None: Flow - Phasic: Augmentation -Normal: Reflux - Yes. 3. Popliteal Vein: 3.1. Compressibility - Fully compressible: Thrombus - None: Flow - Phasic: Augmentation -Normal: Reflux - Yes. 4. Posterior Tibial Vein: 4.1. Compressibility - Fully compressible: Thrombus - None: Flow - Phasic: Augmentation -Normal: Reflux - None. 5. Peroneal Vein: 5.1. Compressibility - : Thrombus - : Flow - : Augmentation -: Reflux - . 6. Great Saphenous Vein: 6.1. Compressibility - Fully compressible: Thrombus -None: Flow - Phasic: Augmentation - Normal: Reflux - None. OTHER FINDINGS: Due to swelling in the calf, the right peroneal vein was not visualized. IMPRESSION: No evidence of deep or superficial vein thrombosis of the right lower extremity with excellent venous flow. Valvular incompetence of the right femoral and popliteal veins. Right popliteal vein intima wall thickening noted. Normal venous flow noted in the left common femoral vein.
--- NOTE | 2018-08-04 17:21 | RAD ---
HISTORY: for admission COMPARISON: Chest x-ray performed 03/22/18 TECHNIQUE: Chest, one view. FINDINGS: Right-sided central venous catheter extends to the SVC. LUNGS: No focal consolidation. Please note that chest x-ray has limited sensitivity for the detection of pulmonary masses. PLEURA: No significant pleural effusion identified. No definite pneumothorax . CARDIOVASCULAR: Mild cardiomegaly. Atherosclerotic calcifications. Ectatic aorta. OSSEOUS STRUCTURES: Degenerative changes of the spine. Scoliosis. VISUALIZED UPPER ABDOMEN: Unremarkable. OTHER FINDINGS: None. IMPRESSION: Right-sided central venous catheter extends to the SVC. Mild cardiomegaly.
[2018-08-04 17:31] VITALS: RESP 20
--- NOTE | 2018-08-04 17:38 | RAD ---
Date of service: 08/04/2018 PROCEDURE: Radiographs of the right tibia and fibula. HISTORY: leg pain and infection COMPARISON: None available TECHNIQUE: Frontal and lateral views obtained. FINDINGS: BONES: No evidence of osteomyelitis or other significant/acute osseous process. JOINT SPACES: Unremarkable. As visualize common no abnormalities detected. OTHER FINDINGS: Profound soft tissue swelling about the calf and visible lower extremity. No visualized radiopaque foreign body. IMPRESSION: Soft tissue swelling without acute articular or osseous abnormality.
--- NOTE | 2018-08-04 18:54 | CP.PCM.CON ---
History of Present Illness - History of Present Illness History of Present Illness: INFECTIOUS DISEASE CONSULT. HPI 62 year old female patient with history of HTN, COPD,obstructive sleep apnea, diabetes mellitus type 2, chronic DVT on ELIQUIS and history of IVC filter sent by podiatry, Dr. Gale to evaluate patient for right leg pain for 3 weeks. Patient reports leg pain is progressively getting worse. Patient has swollen right heel and swollen calf. Patient has failed outpatient therapy and was referred to the ER by the compensation adjuster. Patient has been taking Levaquin and doxycycline with no improvement. Patient notes she has shortness of breath when she walks. PATIENT DENIES ANY SORE THROAT, COUGH OR EXPECTORATION. PATIENT DENIES ANY CHEST PAIN OR PALPITATIONS. DENIES ANY DIZZINESS. CHEST X-RAY ON ADMISSION IS UNREMARKABLE. INFECTIOUS DISEASE CONSULTATION REQUESTED BY DR. RAMIREZ PATIENT HAS MANY ALLERGIES. PATIENT WELL KNOWN TO ME FROM PREVIOUS HOSPITALIZATIONS. PATIENT HAS HISTORY OF pORT-a-cATH. pATIENT ALSO HAS HISTORY OF MRSA/ AND MULTIPLE GRAM-NEGATIVE/AND ENTEROCOCCAL SEPSIS INFECTIONS SECONDARY TO CATHETER-RELATED BLOODSTREAM INFECTIONS/ AND STSI. PATIENT DENIES ANY RECENT TRAVEL/OR ANY SICK CONTACTS. PMD: Dr. Ramirez Podiatry: Dr. Gale PMH;as above. Social history. Ex-smoker. Denies drinking. IMMUNIZATIONS. Hx Tetanus Toxoid Vaccination: (UNSURE) Hx Influenza Vaccination: Yes Hx Pneumococcal Vaccination: Yes Allergies. Penicillin, vancomycin, clindamycin, latex, adhesive , shellfish. Patient is able to tolerate AZACTAM, AND TYGACIL. FAMILY HISTORY; NONCONTRIBUTORY Review of Systems - Constitutional Constitutional: absent: Chills, Fever - EENT Eyes: absent: Change in Vision Nose/Mouth/Throat: absent: Nasal Discharge, Hoarsness, Mouth Lesions, Sore Throat - Cardiovascular Cardiovascular: Dyspnea on Exertion, Leg Edema, Leg Ulcers (CHRONIC RIGHT LOWER EXTREMITY PULSES WITH DEPIGMENTATION AND TENDERNESS AT THE SITE.). absent: Chest Pain, Palpitations - Respiratory Respiratory: absent: Cough, Hemoptysis - Gastrointestinal Gastrointestinal: absent: Abdominal Pain, Change in Stool Character - Genitourinary Genitourinary: absent: Dysuria, Freq UTI - Reproductive: Female Reproductive:Female: Post Menopausal - Musculoskeletal Musculoskeletal: Radiating Pain into Limb - Integumentary Integumentary: Skin Pain (.) - Hematologic/Lymphatic Hematologic: As Per HPI. absent: Easy Bleeding, Easy Bruising, Lymphadenopathy Past Patient History - Infectious Disease Hx of Infectious Diseases: MRSA - Past Medical History & Family History Past Medical History?: Yes - Past Social History Smoking Status: Never Smoked - CARDIAC Hx Hypercholesterolemia: Yes Hx Hypertension: Yes - PULMONARY Hx Chronic Obstructive Pulmonary Disease (COPD): Yes - NEUROLOGICAL Hx Neurological Disorder: No - HEENT Hx HEENT Problems: No - RENAL Hx Chronic Kidney Disease: No - ENDOCRINE/METABOLIC Hx Diabetes Mellitus Type 2: Yes - HEMATOLOGICAL/ONCOLOGICAL Hx Anemia: Yes - INTEGUMENTARY Hx Dermatological Problems: No - MUSCULOSKELETAL/RHEUMATOLOGICAL Hx Arthritis: Yes - GASTROINTESTINAL Hx Gastrointestinal Disorders: Yes Hx Gastroesophageal Reflux: Yes - GENITOURINARY/GYNECOLOGICAL Hx Genitourinary Disorders: No - PSYCHIATRIC Hx Substance Use: No - SURGICAL HISTORY Hx Surgeries: Yes Hx Section: Yes (x 1) Hx Hysterectomy: Yes Other/Comment: Fibroids/Adhesions removal - ANESTHESIA Hx Anesthesia: Yes Hx Anesthesia Reactions: No Hx Malignant Hyperthermia: No Meds Allergies/Adverse Reactions: Allergies Allergy/AdvReac Type Severity Reaction Status Date / Time adhesive tape Allergy RASH Verified 08/04/18 14:30 clindamycin Allergy RASH Verified 08/04/18 14:30 Latex, Natural Rubber Allergy RASH Verified 08/04/18 14:30 Penicillins Allergy RASH Verified 08/04/18 14:30 shellfish derived Allergy RASH Verified 08/04/18 14:30 vancomycin Allergy RASH Verified 08/04/18 14:30 - Medications Medications: Current Medications Acetaminophen (Tylenol 325mg Tab) 650 mg PO Q6 PRN PRN Reason: Pain, moderate (4-7) Apixaban (Eliquis) 5 mg PO BID [facility] Last Admin: 08/04/18 18:17 Dose: 5 mg Dextrose (Dextrose 50% Inj) 0 ml IV STAT PRN; Protocol PRN Reason: Hypoglycemia Protocol Dextrose (Glutose 15) 0 gm PO ONCE PRN; Protocol PRN Reason: Hypoglycemia Protocol Gabapentin (Neurontin) 100 mg PO BID [facility] Last Admin: 08/04/18 18:17 Dose: 100 mg Glipizide (Glucotrol Xl) 2.5 mg PO ACB [facility] Glucagon (Glucagen Diagnostic Kit) 0 mg IM STAT PRN; Protocol PRN Reason: Hypoglycemia Protocol Dextrose (Dextrose 5% In Water 1000 Ml) 1,000 mls @ 0 mls/hr IV .Q0M PRN; Protocol PRN Reason: Hypoglycemia Protocol Insulin Aspart (Novolog) 0 unit SC ACHS [facility]; Protocol Losartan Potassium (Cozaar) 50 mg PO DAILY [facility] Metformin HCl (Glucophage) 500 mg PO ACB [facility] Montelukast Sodium (Singulair) 10 mg PO HS [facility] Rosuvastatin Calcium (Crestor) 20 mg PO HS [facility] Physical Exam - Constitutional Appears: No Acute Distress - Head Exam Head Exam: NORMAL INSPECTION - Eye Exam Eye Exam: EOMI, PERRL - ENT Exam ENT Exam: Normal Oropharynx - Neck Exam Neck exam: Positive for: Normal Inspection - Respiratory Exam Respiratory Exam: Clear to Auscultation Bilateral, NORMAL BREATHING PATTERN - Cardiovascular Exam Cardiovascular Exam: REGULAR RHYTHM, +S1, +S2 - GI/Abdominal Exam GI & Abdominal Exam: Normal Bowel Sounds, Soft. absent: Tenderness - Extremities Exam Extremities exam: Positive for: calf tenderness (rt. calf swellingand warmth with tenderness.), pedal edema (RIGHT LOWER EXTREMITY WITH DRY SKIN CHANGES.), tenderness (AT THE SITE OF OLD SCARS AND DEPIGMENTED REGION), pedal pulses present - Neurological Exam Neurological exam: Alert, CN II-XII Intact, Oriented x3, Reflexes Normal - Psychiatric Exam Psychiatric exam: Normal Mood - Skin Skin Exam: Normal Color, Warm Results - Vital Signs Recent Vital Signs: Last Vital Signs Temp 98.1 F 08/04/18 17:30 Pulse 80 08/04/18 17:30 Resp 20 08/04/18 17:30 BP 118/86 08/04/18 17:30 Pulse Ox 98 08/04/18 17:36 - Labs Result Diagrams: 08/04/18 15:20 08/04/18 15:20 Labs: Laboratory Results - last 24 hr 08/04/18 08/04/18 08/04/18 15:20 15:20 17:20 WBC 5.7 RBC 4.01 Hgb 11.2 Hct 34.9 MCV 86.9 MCH 28.0 MCHC 32.3 L RDW 13.3 Plt Count 263 MPV 8.4 Neut % (Auto) 55.9 Lymph % (Auto) 34.1 [place] % (Auto) 7.2 Eos % (Auto) 1.8 Baso % (Auto) 1.0 Neut # (Auto) 3.2 Lymph # (Auto) 2.0 [place] # (Auto) 0.4 Eos # (Auto) 0.1 Baso # (Auto) 0.1 Sodium 138 Potassium 3.6 Chloride 102 Carbon Dioxide 28 Anion Gap 11 BUN 16 Creatinine 0.7 Est GFR ( Amer) > 60 Est GFR (Non-Af Amer) > 60 POC Glucose (mg/dL) 64 L Random Glucose 81 Calcium 9.3 Total Bilirubin 0.2 AST 18 ALT 13 Alkaline Phosphatase 71 NT-Pro-B Natriuret Pep 67.7 Total Protein 7.3 Albumin 4.4 Globulin 2.9 Albumin/Globulin Ratio 1.5 08/04/18 08/04/18 17:22 18:08 WBC RBC Hgb Hct MCV MCH MCHC RDW Plt Count MPV Neut % (Auto) Lymph % (Auto) [place] % (Auto) Eos % (Auto) Baso % (Auto) Neut # (Auto) Lymph # (Auto) [place] # (Auto) Eos # (Auto) Baso # (Auto) Sodium Potassium Chloride Carbon Dioxide Anion Gap BUN Creatinine Est GFR ( Amer) Est GFR (Non-Af Amer) POC Glucose (mg/dL) 67 114 H Random Glucose Calcium Total Bilirubin AST ALT Alkaline Phosphatase NT-Pro-B Natriuret Pep Total Protein Albumin Globulin Albumin/Globulin Ratio - Imaging and Cardiology Venous US Status: Report reviewed by me (negative for superficial or deep vein thrombosis. Valve incompetence of right femoral and popliteal vein.) Additional comment: wall vein thickening. Assessment & Plan (1) Cellulitis of right leg Assessment and Plan: PANCULTURES. ESR CRP. U/A URINE CULTURES. MRSAS CREENING fOLLOW-UP X-RAYS OF RIGHT TIBIA AND FIBULA. START iv ZYVOX 600 MG iv PIGGYBACK EVERY 12 HOURLY .08/04/18/ START iv CIPRO 400 iv PIGGYBACK EVERY 12 HOURLY . 08/04/18. FOLLOW-UP CULTURES TO ADJUST ANTIBIOTIC. CASE DISCUSSED WITH THE STAFF. THANK YOU VERY MUCH FOR ALLOWING ME TO PARTICIPATE IN THE CARE OF YOUR PATIENT. Status: Acute (2) COPD (chronic obstructive pulmonary disease) Status: Acute (3) Chronic deep venous thrombosis Assessment and Plan: history of IVC FILTER. pATIENT ALSO ON ELIQUIS. Status: Acute (4) Diabetes mellitus Status: Acute (5) Hypertension Status: Acute
[2018-08-04] MEDS: Ciprofloxacin 400mg/200ml D5W 400 MG/200 ML BAG IVPB SCH (19:52)
[2018-08-04] MEDS ORDERED: Tdap Vaccine 0.5 ml Vial (10-64 yrs) IM ONE (20:28)
[2018-08-04] MEDS: Linezolid 600 mg in D5W 300 ml 600 MG/300 ML BAG IVPB SCH (21:35)
[2018-08-04] MEDS: (Novolog) Insulin Aspart, Recombinant 100 u/ml 10 ml vial SC SCH (21:49)
[2018-08-05 04:24] LABS: SQUAMOUS EPITHIAL 9 /hpf (0-5); URINE BACTERIA RARE (<OCC); URINE BILIRUBIN NEGATIVE (NEGATIVE); URINE BLOOD NEGATIVE (NEGATIVE); URINE CLARITY Hazy (Clear); URINE COLOR Yellow (YELLOW); URINE GLUCOSE (UA) NORMAL (Normal); URINE LEUKOCYTE ESTERASE 2+ Leu/uL (Negative); URINE PROTEIN NEGATIVE (NEGATIVE); URINE UROBILINOGEN NORMAL mg/dL (0.2-1.0)
[2018-08-05] MEDS: (Novolog) Insulin Aspart, Recombinant 100 u/ml 10 ml vial SC SCH ×4 (08:31→21:21)
[2018-08-05] MEDS: GlipiZIDE 2.5 mg SR Tab PO SCH (08:31)
[2018-08-05] MEDS: Linezolid 600 mg in D5W 300 ml 600 MG/300 ML BAG IVPB SCH ×2 (09:02→22:33)
[2018-08-05] MEDS: Ciprofloxacin 400mg/200ml D5W 400 MG/200 ML BAG IVPB SCH ×2 (09:02→20:00)
--- NOTE | 2018-08-05 14:04 | CP.PCM.CON ---
History of Present Illness - History of Present Illness History of Present Illness: Podiatry consult note for Dr. Roman, 62 year old female patient with history of HTN, COPD,obstructive sleep apnea, diabetes mellitus type 2, chronic DVT on ELIQUIS and history of IVC filter sent by podiatry, Dr. Gale to evaluate patient for right leg pain for 3 weeks. Patient admits to severe pain in the right lower extremity espcially the posterior calf and heel. Patient states she has been taking Levaquin and doxycycline with no improvement. Admits to SOB while ambulating. Denies f/n/v/cough/dizziness. PMD: Dr. Ramirez Podiatry: Dr. Gale PM;as above. Social history. Ex-smoker. Denies drinking. Allergies. Penicillin, vancomycin, clindamycin, latex, adhesive , shellfish. Patient is able to tolerate AZACTAM, AND TYGACIL. Past Patient History - Infectious Disease Hx of Infectious Diseases: MRSA - Past Medical History & Family History Past Medical History?: Yes - Past Social History Smoking Status: Never Smoked - CARDIAC Hx Hypercholesterolemia: Yes Hx Hypertension: Yes - PULMONARY Hx Chronic Obstructive Pulmonary Disease (COPD): Yes - NEUROLOGICAL Hx Neurological Disorder: No - HEENT Hx HEENT Problems: No - RENAL Hx Chronic Kidney Disease: No - ENDOCRINE/METABOLIC Hx Diabetes Mellitus Type 2: Yes - HEMATOLOGICAL/ONCOLOGICAL Hx Anemia: Yes - INTEGUMENTARY Hx Dermatological Problems: No - MUSCULOSKELETAL/RHEUMATOLOGICAL Hx Arthritis: Yes - GASTROINTESTINAL Hx Gastrointestinal Disorders: Yes Hx Gastroesophageal Reflux: Yes - GENITOURINARY/GYNECOLOGICAL Hx Genitourinary Disorders: No - PSYCHIATRIC Hx Substance Use: No - SURGICAL HISTORY Hx Surgeries: Yes Hx Section: Yes (x 1) Hx Hysterectomy: Yes Other/Comment: Fibroids/Adhesions removal - ANESTHESIA Hx Anesthesia: Yes Hx Anesthesia Reactions: No Hx Malignant Hyperthermia: No Meds Allergies/Adverse Reactions: Allergies Allergy/AdvReac Type Severity Reaction Status Date / Time adhesive tape Allergy RASH Verified 08/04/18 14:30 clindamycin Allergy RASH Verified 08/04/18 14:30 Latex, Natural Rubber Allergy RASH Verified 08/04/18 14:30 Penicillins Allergy RASH Verified 08/04/18 14:30 shellfish derived Allergy RASH Verified 08/04/18 14:30 vancomycin Allergy RASH Verified 08/04/18 14:30 - Medications Medications: Current Medications Acetaminophen (Tylenol 325mg Tab) 650 mg PO Q6 PRN PRN Reason: Pain, moderate (4-7) Apixaban (Eliquis) 5 mg PO BID [facility] Last Admin: 08/05/18 11:14 Dose: 5 mg Dextrose (Dextrose 50% Inj) 0 ml IV STAT PRN; Protocol PRN Reason: Hypoglycemia Protocol Dextrose (Glutose 15) 0 gm PO ONCE PRN; Protocol PRN Reason: Hypoglycemia Protocol Gabapentin (Neurontin) 100 mg PO BID [facility] Last Admin: 08/05/18 11:15 Dose: 100 mg Glipizide (Glucotrol Xl) 2.5 mg PO ACB [facility] Last Admin: 08/05/18 08:31 Dose: Not Given Glucagon (Glucagen Diagnostic Kit) 0 mg IM STAT PRN; Protocol PRN Reason: Hypoglycemia Protocol Dextrose (Dextrose 5% In Water 1000 Ml) 1,000 mls @ 0 mls/hr IV .Q0M PRN; Protocol PRN Reason: Hypoglycemia Protocol Linezolid (Zyvox 600mg/300ml D5w) 600 mg in 300 mls @ 200 mls/hr IVPB Q12H [facility]; Protocol Last Admin: 08/05/18 09:02 Dose: 200 mls/hr Ciprofloxacin (Cipro 400mg/200ml Dsw) 400 mg in 200 mls @ 133 mls/hr IVPB Q12H [facility]; Protocol Last Admin: 08/05/18 09:02 Dose: 133 mls/hr Insulin Aspart (Novolog) 0 unit SC ACHS [facility]; Protocol Last Admin: 08/05/18 12:08 Dose: Not Given Losartan Potassium (Cozaar) 50 mg PO DAILY [facility] Last Admin: 08/05/18 11:13 Dose: 50 mg Metformin HCl (Glucophage) 500 mg PO ACB [facility] Last Admin: 08/05/18 08:31 Dose: Not Given Montelukast Sodium (Singulair) 10 mg PO [facility] Last Admin: 08/04/18 21:36 Dose: 10 mg Rosuvastatin Calcium (Crestor) 20 mg PO HS [facility] Last Admin: 08/04/18 21:37 Dose: 20 mg Physical Exam - Constitutional Appears: Well, Non-toxic, No Acute Distress - Head Exam Head Exam: ATRAUMATIC - ENT Exam ENT Exam: Mucous Membranes Moist - Extremities Exam Extremities exam: Positive for: normal inspection Additional comments: Right lower extremity Vascular: pulses palpable; CFT <3 secs x 5, TG warm to warm, minimal nonpitting edema noted on the dorsum of the foot and leg derm: no open lesions, scaling of plantar foot noted, no deep tissue injury noted to the heel, no erythema, no edema, no ecchymosis ortho: diffuse pain on palpation to the posterior aspect of the leg, anterior aspect of distal leg, dorsum of foot, and heel. neuro: protective sensation grossly intact - Neurological Exam Neurological exam: Alert, Oriented x3 - Psychiatric Exam Psychiatric exam: Normal Affect Results - Vital Signs Recent Vital Signs: Last Vital Signs Temp 98 F 08/05/18 07:59 Pulse 85 08/05/18 07:59 Resp 20 08/05/18 07:59 BP 118/76 08/05/18 07:59 Pulse Ox 95 08/05/18 07:59 - Labs Result Diagrams: 08/04/18 15:20 08/04/18 15:20 Labs: Laboratory Results - last 24 hr 08/04/18 08/04/18 08/04/18 15:20 15:20 17:20 WBC 5.7 RBC 4.01 Hgb 11.2 Hct 34.9 MCV 86.9 MCH 28.0 MCHC 32.3 L RDW 13.3 Plt Count 263 MPV 8.4 Neut % (Auto) 55.9 Lymph % (Auto) 34.1 Louisa % (Auto) 7.2 Eos % (Auto) 1.8 Baso % (Auto) 1.0 Neut # (Auto) 3.2 Lymph # (Auto) 2.0 Louisa # (Auto) 0.4 Eos # (Auto) 0.1 Baso # (Auto) 0.1 ESR Sodium 138 Potassium 3.6 Chloride 102 Carbon Dioxide 28 Anion Gap 11 BUN 16 Creatinine 0.7 Est GFR ( Amer) > 60 Est GFR (Non-Af Amer) > 60 POC Glucose (mg/dL) 64 L Random Glucose 81 Calcium 9.3 Total Bilirubin 0.2 AST 18 ALT 13 Alkaline Phosphatase 71 C-Reactive Protein NT-Pro-B Natriuret Pep 67.7 Total Protein 7.3 Albumin 4.4 Globulin 2.9 Albumin/Globulin Ratio 1.5 Urine Color Urine Clarity Urine pH Ur Specific [place] Urine Protein Urine Glucose (UA) Urine Ketones Urine Blood Urine Nitrate Urine Bilirubin Urine Urobilinogen Ur Leukocyte Esterase Urine WBC (Auto) Urine RBC (Auto) Ur Squamous Epith Cells Urine Bacteria Hyaline Casts 08/04/18 08/04/18 08/04/18 17:22 17:54 18:08 WBC RBC Hgb Hct MCV MCH MCHC RDW Plt Count MPV Neut % (Auto) Lymph % (Auto) Louisa % (Auto) Eos % (Auto) Baso % (Auto) Neut # (Auto) Lymph # (Auto) Louisa # (Auto) Eos # (Auto) Baso # (Auto) ESR Sodium Potassium Chloride Carbon Dioxide Anion Gap BUN Creatinine Est GFR ( Amer) Est GFR (Non-Af Amer) POC Glucose (mg/dL) 67 310 H 114 H Random Glucose Calcium Total Bilirubin AST ALT Alkaline Phosphatase C-Reactive Protein NT-Pro-B Natriuret Pep Total Protein Albumin Globulin Albumin/Globulin Ratio Urine Color Urine Clarity Urine pH Ur Specific [place] Urine Protein Urine Glucose (UA) Urine Ketones Urine Blood Urine Nitrate Urine Bilirubin Urine Urobilinogen Ur Leukocyte Esterase Urine WBC (Auto) Urine RBC (Auto) Ur Squamous Epith Cells Urine Bacteria Hyaline Casts 08/04/18 08/04/18 08/04/18 18:50 18:50 21:05 WBC RBC Hgb Hct MCV MCH MCHC RDW Plt Count MPV Neut % (Auto) Lymph % (Auto) Louisa % (Auto) Eos % (Auto) Baso % (Auto) Neut # (Auto) Lymph # (Auto) Louisa # (Auto) Eos # (Auto) Baso # (Auto) ESR 24 H Sodium Potassium Chloride Carbon Dioxide Anion Gap BUN Creatinine Est GFR ( Amer) Est GFR (Non-Af Amer) POC Glucose (mg/dL) 120 H Random Glucose Calcium Total Bilirubin AST ALT Alkaline Phosphatase C-Reactive Protein 6.20 NT-Pro-B Natriuret Pep Total Protein Albumin Globulin Albumin/Globulin Ratio Urine Color Urine Clarity Urine pH Ur Specific [place] Urine Protein Urine Glucose (UA) Urine Ketones Urine Blood Urine Nitrate Urine Bilirubin Urine Urobilinogen Ur Leukocyte Esterase Urine WBC (Auto) Urine RBC (Auto) Ur Squamous Epith Cells Urine Bacteria Hyaline Casts 08/05/18 08/05/18 08/05/18 02:20 04:08 07:40 WBC RBC Hgb Hct MCV MCH MCHC RDW Plt Count MPV Neut % (Auto) Lymph % (Auto) Louisa % (Auto) Eos % (Auto) Baso % (Auto) Neut # (Auto) Lymph # (Auto) Louisa # (Auto) Eos # (Auto) Baso # (Auto) ESR Sodium Potassium Chloride Carbon Dioxide Anion Gap BUN Creatinine Est GFR ( Amer) Est GFR (Non-Af Amer) POC Glucose (mg/dL) 119 H 109 Random Glucose Calcium Total Bilirubin AST ALT Alkaline Phosphatase C-Reactive Protein NT-Pro-B Natriuret Pep Total Protein Albumin Globulin Albumin/Globulin Ratio Urine Color Yellow Urine Clarity Hazy Urine pH 5.0 Ur Specific [place] 1.023 Urine Protein Negative Urine Glucose (UA) Normal Urine Ketones Negative Urine Blood Negative Urine Nitrate Negative Urine Bilirubin Negative Urine Urobilinogen Normal Ur Leukocyte Esterase 2+ H Urine WBC (Auto) 83 H Urine RBC (Auto) 2 Ur Squamous Epith Cells 9 H Urine Bacteria Rare Hyaline Casts 3-5 H 08/05/18 11:51 WBC RBC Hgb Hct MCV MCH MCHC RDW Plt Count MPV Neut % (Auto) Lymph % (Auto) Louisa % (Auto) Eos % (Auto) Baso % (Auto) Neut # (Auto) Lymph # (Auto) Louisa # (Auto) Eos # (Auto) Baso # (Auto) ESR Sodium Potassium Chloride Carbon Dioxide Anion Gap BUN Creatinine Est GFR ( Amer) Est GFR (Non-Af Amer) POC Glucose (mg/dL) 101 Random Glucose Calcium Total Bilirubin AST ALT Alkaline Phosphatase C-Reactive Protein NT-Pro-B Natriuret Pep Total Protein Albumin Globulin Albumin/Globulin Ratio Urine Color Urine Clarity Urine pH Ur Specific [place] Urine Protein Urine Glucose (UA) Urine Ketones Urine Blood Urine Nitrate Urine Bilirubin Urine Urobilinogen Ur Leukocyte Esterase Urine WBC (Auto) Urine RBC (Auto) Ur Squamous Epith Cells Urine Bacteria Hyaline Casts Assessment & Plan - Assessment and Plan (Free Text) Assessment: 62 yo female seen and evaluated for right leg pain. Plan: Patient seen and evaluated VSS; absent leukocytosis afebrile Venous duplex negative for DVT Tib/fib x-rays no osseous deformity CXR unremarkable multipodus boots ordered for b/l feet bactroban BID to both heels Podiatry will continue to follow Thank you for the consult
--- NOTE | 2018-08-05 23:00 | CP.PCM.PN ---
Subjective - Date & Time of Evaluation Date of Evaluation: 08/05/18 Time of Evaluation: 23:00 - Subjective Subjective: CHIEF COMPLAINTS TODAY : afebrile C/O PAIN RT LE AND RT HEEL ROS HEENT : N. Resp : No SOB,,NO wheezing, Cardio : No CP, PND orthopnea GI : No abd. 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 Musculoskel : N Ext. : Pedal pulses intact, RT. CALF SWELLING , RT HEEL AND ANKLE CELLULITUS DRY SKIN. OLD PIGMENTATIONS SCARS Derm : N Psych : N. PE. Pt. is alert awake in no distress. V.S As noted in the chart HENT; N Neck : Supple with normal carotids. Lungs: DECREASED BS Heart : S1 & S2 normal . . No murmur. S4 + Abd : Soft non tender with normal bowel sounds. Neuro : Moves all ext. with no localized deficit. Ext : No edema with intact pulses. Neg. calf tenderness RT. CALF SWELLING , RT HEEL AND ANKLE CELLULITUS DRY SKIN. OLD PIGMENTATIONS SCARS, TENDERNESS ON PALPATION/WARMTH Derm : No rashes or decubitus ulcer. Radiology/Labs BLOOD CULTURES -VE 24HRS. Objective - Vital Signs/Intake and Output Vital Signs (last 24 hours): Temp Pulse Resp BP Pulse Ox 97.9 F 74 20 130/81 95 08/05/18 16:00 08/05/18 16:00 08/05/18 16:00 08/05/18 16:00 08/05/18 16:00 Intake and Output: 08/05/18 08/06/18 18:59 06:59 Intake Total 640 700 Output Total 400 Balance 640 300 - Medications Medications: Current Medications Acetaminophen (Tylenol 325mg Tab) 650 mg PO Q6 PRN PRN Reason: Pain, moderate (4-7) Apixaban (Eliquis) 5 mg PO BID [facility] Last Admin: 08/05/18 17:26 Dose: 5 mg Dextrose (Dextrose 50% Inj) 0 ml IV STAT PRN; Protocol PRN Reason: Hypoglycemia Protocol Dextrose (Glutose 15) 0 gm PO ONCE PRN; Protocol PRN Reason: Hypoglycemia Protocol Gabapentin (Neurontin) 100 mg PO BID [facility] Last Admin: 08/05/18 17:26 Dose: 100 mg Glipizide (Glucotrol Xl) 2.5 mg PO ACB [facility] Last Admin: 08/05/18 08:31 Dose: Not Given Glucagon (Glucagen Diagnostic Kit) 0 mg IM STAT PRN; Protocol PRN Reason: Hypoglycemia Protocol Dextrose (Dextrose 5% In Water 1000 Ml) 1,000 mls @ 0 mls/hr IV .Q0M PRN; Protocol PRN Reason: Hypoglycemia Protocol Linezolid (Zyvox 600mg/300ml D5w) 600 mg in 300 mls @ 200 mls/hr IVPB Q12H [facility]; Protocol Last Admin: 08/05/18 22:33 Dose: 200 mls/hr Ciprofloxacin (Cipro 400mg/200ml Dsw) 400 mg in 200 mls @ 133 mls/hr IVPB Q12H [facility]; Protocol Last Admin: 08/05/18 20:00 Dose: 133 mls/hr Insulin Aspart (Novolog) 0 unit SC ACHS [facility]; Protocol Last Admin: 08/05/18 21:21 Dose: Not Given Losartan Potassium (Cozaar) 50 mg PO DAILY [facility] Last Admin: 08/05/18 11:13 Dose: 50 mg Metformin HCl (Glucophage) 500 mg PO ACB [facility] Last Admin: 08/05/18 08:31 Dose: Not Given Montelukast Sodium (Singulair) 10 mg PO HS [facility] Last Admin: 08/05/18 21:05 Dose: 10 mg Mupirocin (Bactroban Ointment) 0 gm TOP BID [facility] Last Admin: 08/05/18 17:26 Dose: 1 applic Rosuvastatin Calcium (Crestor) 20 mg PO HS [facility] Last Admin: 08/05/18 21:05 Dose: 20 mg - Labs Labs: 08/04/18 15:20 08/04/18 15:20 Assessment and Plan (1) Cellulitis of right leg Assessment & Plan: CONTINUE iv ZYVOX 600 MG iv PIGGYBACK EVERY 12 HOURLY .08/04/18/ CONTINUE iv CIPRO 400 iv PIGGYBACK EVERY 12 HOURLY . 08/04/18. FOLLOW-UP CULTURES TO ADJUST ANTIBIOTIC. RADIOLOGY Venous duplex negative for DVT Tib/fib x-rays no osseous deformity Status: Acute (2) COPD (chronic obstructive pulmonary disease) Assessment & Plan: CXR -NAD. Status: Acute (3) Chronic deep venous thrombosis Assessment & Plan: PT HAS IVC FILTER ON ELIQUIS PER PMD Status: Acute (4) Diabetes mellitus Status: Acute (5) Hypertension Status: Acute
[2018-08-06 07:39] LABS: BASO % 0.6 % (0.0-2.0); EOS # 0.1 K/uL (0.0-0.7); EOS % 2.1 % (0.0-4.0); HEMOGLOBIN 11.1 g/dL (11.0-16.0); LYMPH # 1.4 K/uL (1.0-4.3); LYMPH % 30.6 % (20.0-40.0); MEAN CELL VOLUME 86.9 fL (81.0-99.0); MEAN CORPUSCULAR HEMOGLOBIN 28.6 pg (27.0-31.0); MEAN CORPUSCULAR HGB CONC 32.9 g/dL (33.0-37.0); MEAN PLATELET VOLUME 8.7 fL (7.2-11.7); MONO # 0.5 K/uL (0.0-0.8); MONO % 10.8 % (0.0-10.0); NEUT # 2.5 K/uL (1.8-7.0); NEUT % 55.9 % (50.0-75.0); RBC 3.88 Mil/uL (3.80-5.20); RED CELL DISTRIBUTION WIDTH 13.3 % (11.5-14.5); WHITE BLOOD COUNT 4.5 K/uL (4.8-10.8)
[2018-08-06 07:52] LABS: ALBUMIN 3.8 g/dL (3.5-5.0); BLOOD UREA NITROGEN 12 mg/dL (7-17); GFR NON-AFRICAN AMERICAN > 60
[2018-08-06 07:53] LABS: ALB/GLOB RATIO 1.4 (1.0-2.1); ALT/SGPT 15 U/L (9-52); AST/SGOT 16 U/L (14-36)
[2018-08-06] MEDS: (Novolog) Insulin Aspart, Recombinant 100 u/ml 10 ml vial SC SCH ×4 (08:33→21:24)
[2018-08-06] MEDS: Linezolid 600 mg in D5W 300 ml 600 MG/300 ML BAG IVPB SCH (09:05)
[2018-08-06] MEDS: Ciprofloxacin 400mg/200ml D5W 400 MG/200 ML BAG IVPB SCH ×2 (09:05→20:08)
[2018-08-06] MEDS: GlipiZIDE 2.5 mg SR Tab PO SCH (09:06)
--- NOTE | 2018-08-07 07:29 | HP ---
HISTORY OF PRESENT ILLNESS: The patient is a 62-year-old female with history of hypertension, diabetes, chronic DVT, and chronic pain. The patient came to the hospital and is referred by Dr. Gale because of the pain for the past three weeks. The patient was taking antibiotics including Levaquin and doxycycline with no improvement, so the patient came to the emergency room for evaluation. ALLERGIES: THE PATIENT IS ALLERGIC TO PENICILLIN, VANCOMYCIN AND CLINDAMYCIN. SOCIAL HISTORY: No history of smoking or alcohol abuse. FAMILY HISTORY: The patient has children. She is , lives with family. REVIEW OF SYSTEMS: RESPIRATORY: The patient denies any shortness of breath at rest but is having some shortness of breath on exertion. CARDIOVASCULAR: No chest pain. GASTROINTESTINAL: The patient denies any constipation. GENITOURINARY: No dysuria. EXTREMITIES: The patient is having some leg pain associated with the pain to the right hip. PHYSICAL EXAMINATION: GENERAL: The patient is alert and awake. VITAL SIGNS: Blood pressure now is 118/76, pulse 85, respirations 20, temperature 98 degrees Fahrenheit. HEENT: Head is normocephalic. NECK: Supple. No JVD. LUNGS: Clear. HEART: Regular rate and rhythm. ABDOMEN: Soft. Positive bowel sounds. EXTREMITIES: There is some tenderness in the right leg and also is warm and red. LABORATORY DATA: The patient had a blood test done. Chemistry: Sodium 138, potassium 3.6, chloride 102, bicarbonate 23, BUN 16, creatinine 0.7, glucose 81. AST 18, ALT 13, alkaline phosphatase 71. BNP . . CBC showed WBC 5.7, hemoglobin 11.2, hematocrit 34.9, and platelet is 263 . The patient today had . ASSESSMENT AND PLAN: The patient was admitted with a history of cellulitis of the right leg, diabetes, hypertension, and history of asthma. The patient had been consulted with Dr. Yonas Smith who is from Infectious Disease. Case was reviewed and discussed with Aleyda Ramon, the nurse practitioner. Ambrocio Ramirez MD
--- NOTE | 2018-08-07 07:32 | PN ---
DATE: 08/06/2018 SUBJECTIVE: The patient is alert and awake. She is still complaining of some pain in her right leg and shortness of breath and dizziness. Denies chest pain. PHYSICAL EXAMINATION: VITAL SIGNS: Blood pressure 139/91, pulse 79, respirations 20, temperature 98.3. NECK: Supple. LUNGS: Clear. HEART: Regular rate and rhythm. ABDOMEN: Soft. EXTREMITIES: There is redness in the right leg and tenderness and warm. LABORATORY DATA: The labs were done today ____ for tomorrow. ASSESSMENT AND PLAN: The plan is we are going to continue therapy. Ambrocio Ramirez MD
[2018-08-07] MEDS: (Novolog) Insulin Aspart, Recombinant 100 u/ml 10 ml vial SC SCH ×4 (07:47→21:15)
[2018-08-07] MEDS: GlipiZIDE 2.5 mg SR Tab PO SCH (07:55)
[2018-08-07] MEDS: Ciprofloxacin 400mg/200ml D5W 400 MG/200 ML BAG IVPB SCH (08:04)
--- NOTE | 2018-08-07 18:57 | CP.PCM.PN ---
Subjective - Date & Time of Evaluation Date of Evaluation: 08/07/18 Time of Evaluation: 18:57 - Subjective Subjective: CHIEF COMPLAINTS TODAY : afebrile C/O PAIN RT CALF AND RT HEEL C/O LOOSE STOOLS TODAY ROS HEENT : N. Resp : No SOB,,NO wheezing, Cardio : No CP, PND orthopnea GI : No abd. 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 Musculoskel : N Ext. : Pedal pulses intact, RT. CALF SWELLING , RT HEEL AND ANKLE CELLULITUS DRY SKIN. OLD PIGMENTATIONS SCARS Derm : N Psych : N. PE. Pt. is alert awake in no distress. V.S As noted in the chart HENT; N Neck : Supple with normal carotids. Lungs: DECREASED BS Heart : S1 & S2 normal . . No murmur. S4 + Abd : Soft non tender with normal bowel sounds. Neuro : Moves all ext. with no localized deficit. Ext : No edema with intact pulses. Neg. calf tenderness RT. CALF SWELLING , RT HEEL AND ANKLE CELLULITUS DRY SKIN. OLD PIGMENTATIONS SCARS, TENDERNESS ON PALPATION/WARMTH Derm : No rashes or decubitus ulcer. Radiology/Labs BLOOD CULTURES -VE X 48HRS. URINE CULTURES <10,000 CFU/ML Objective - Vital Signs/Intake and Output Vital Signs (last 24 hours): Temp Pulse Resp BP Pulse Ox 98.6 F 86 20 120/74 97 08/07/18 16:00 08/07/18 16:00 08/07/18 16:00 08/07/18 16:00 08/07/18 16:00 Intake and Output: 08/07/18 08/07/18 06:59 18:59 Intake Total 700 600 Output Total 500 Balance 200 600 - Medications Medications: Current Medications Acetaminophen (Tylenol 325mg Tab) 650 mg PO Q6 PRN PRN Reason: Pain, moderate (4-7) Apixaban (Eliquis) 5 mg PO BID [facility] Last Admin: 08/07/18 17:06 Dose: 5 mg Dextrose (Dextrose 50% Inj) 0 ml IV STAT PRN; Protocol PRN Reason: Hypoglycemia Protocol Dextrose (Glutose 15) 0 gm PO ONCE PRN; Protocol PRN Reason: Hypoglycemia Protocol Gabapentin (Neurontin) 100 mg PO BID [facility] Last Admin: 08/07/18 17:06 Dose: 100 mg Glipizide (Glucotrol Xl) 2.5 mg PO ACB [facility] Last Admin: 08/07/18 07:55 Dose: 2.5 mg Glucagon (Glucagen Diagnostic Kit) 0 mg IM STAT PRN; Protocol PRN Reason: Hypoglycemia Protocol Insulin Aspart (Novolog) 0 unit SC ACHS [facility]; Protocol Last Admin: 08/07/18 11:58 Dose: Not Given Linezolid (Zyvox) 600 mg PO Q12H [facility] Last Admin: 08/07/18 08:02 Dose: 600 mg Losartan Potassium (Cozaar) 50 mg PO DAILY [facility] Last Admin: 08/07/18 10:06 Dose: 50 mg Metformin HCl (Glucophage) 500 mg PO ACB [facility] Last Admin: 08/07/18 07:55 Dose: 500 mg Montelukast Sodium (Singulair) 10 mg PO [facility] Last Admin: 08/06/18 21:25 Dose: 10 mg Mupirocin (Bactroban Ointment) 0 gm TOP BID [facility] Last Admin: 08/07/18 10:09 Dose: 1 applic Rosuvastatin Calcium (Crestor) 20 mg PO [facility] Last Admin: 08/06/18 21:24 Dose: 20 mg - Labs Labs: 08/06/18 07:23 08/06/18 07:24 Assessment and Plan (1) Cellulitis of right leg Assessment & Plan: CONTINUE iv ZYVOX 600 MG iv PIGGYBACK EVERY 12 HOURLY .08/04/18/ DC iv CIPRO 400 iv PIGGYBACK EVERY 12 HOURLY . 08/04/18. FOLLOW-UP CULTURES TO ADJUST ANTIBIOTIC. RADIOLOGY Venous duplex negative for DVT Tib/fib x-rays no osseous deformity. CT RLE R/O POPLITEAL CYST VS STS W/O CONTRAST. Status: Acute (2) COPD (chronic obstructive pulmonary disease) Status: Acute (3) Chronic deep venous thrombosis Assessment & Plan: PT HAS IVC FILTER Status: Acute (4) Diabetes mellitus Status: Acute (5) Hypertension Status: Acute
[2018-08-08 07:20] LABS: BASO % 0.7 % (0.0-2.0); EOS # 0.1 K/uL (0.0-0.7); EOS % 1.6 % (0.0-4.0); HEMOGLOBIN 11.7 g/dL (11.0-16.0); LYMPH # 1.7 K/uL (1.0-4.3); LYMPH % 33.8 % (20.0-40.0); MEAN CELL VOLUME 87.4 fL (81.0-99.0); MEAN CORPUSCULAR HEMOGLOBIN 28.4 pg (27.0-31.0); MEAN CORPUSCULAR HGB CONC 32.5 g/dL (33.0-37.0); MEAN PLATELET VOLUME 8.3 fL (7.2-11.7); MONO # 0.5 K/uL (0.0-0.8); MONO % 8.8 % (0.0-10.0); NEUT # 2.8 K/uL (1.8-7.0); NEUT % 55.1 % (50.0-75.0); RBC 4.14 Mil/uL (3.80-5.20); RED CELL DISTRIBUTION WIDTH 13.4 % (11.5-14.5); WHITE BLOOD COUNT 5.2 K/uL (4.8-10.8)
[2018-08-08] MEDS: (Novolog) Insulin Aspart, Recombinant 100 u/ml 10 ml vial SC SCH ×4 (07:49→21:18)
[2018-08-08 07:52] LABS: ALB/GLOB RATIO 1.4 (1.0-2.1); ALBUMIN 3.9 g/dL (3.5-5.0); ALT/SGPT 17 U/L (9-52); AST/SGOT 16 U/L (14-36); BLOOD UREA NITROGEN 14 mg/dL (7-17); GFR NON-AFRICAN AMERICAN > 60
--- NOTE | 2018-08-08 08:08 | PN ---
DATE: 08/07/2018 SUBJECTIVE: Today, the patient is alert and awake, was seen and examined. The patient is complaining of less pain to the legs and denied any shortness of breath or palpitations. No constipation. PHYSICAL EXAMINATION: VITAL SIGNS: Blood pressure 128/85, pulse is 85, respirations 20, and temperature 98. NECK: Supple. LUNGS: Clear. HEART: Regular rate and rhythm. ABDOMEN: Soft, obese, mild tenderness at the epigastric area which is old. EXTREMITIES: There is decrease of swelling and redness of the right leg. PLAN: We are going to repeat the CBC and CMP tomorrow and also we are going to discuss the case with Dr. Smith. Requested that since the patient would like to go home tomorrow. Ambrocio Ramirez MD
[2018-08-08] MEDS: GlipiZIDE 2.5 mg SR Tab PO SCH (08:30)
--- NOTE | 2018-08-08 14:18 | CP.PCM.PN ---
Subjective - Date & Time of Evaluation Date of Evaluation: 08/08/18 Time of Evaluation: 14:18 - Subjective Subjective: CHIEF COMPLAINTS TODAY : afebrile CONTINUES TO C/O PAIN RT CALF AND RT HEEL DIARRHEA IMPROVED ROS HEENT : N. Resp : No SOB,,NO wheezing, Cardio : No CP, PND orthopnea GI : No abd. 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 Musculoskel : N Ext. : Pedal pulses intact, RT. CALF SWELLING , RT HEEL AND ANKLE CELLULITUS DRY SKIN. OLD PIGMENTATIONS SCARS Derm : N Psych : N. PE. Pt. is alert awake in no distress. V.S As noted in the chart HENT; N Neck : Supple with normal carotids. Lungs: DECREASED BS Heart : S1 & S2 normal . . No murmur. S4 + Abd : Soft non tender with normal bowel sounds. Neuro : Moves all ext. with no localized deficit. Ext : No edema with intact pulses. Neg. calf tenderness RT. CALF SWELLING , RT HEEL AND ANKLE CELLULITUS DRY SKIN. OLD PIGMENTATIONS SCARS, TENDERNESS ON PALPATION/WARMTH Derm : No rashes or decubitus ulcer. Radiology/Labs wbc 5.2 IMPROVING. BLOOD CULTURES -VE X 48HRS. URINE CULTURES <10,000 CFU/ML Objective - Vital Signs/Intake and Output Vital Signs (last 24 hours): Temp Pulse Resp BP Pulse Ox 98.1 F 79 20 125/71 98 08/08/18 07:26 08/08/18 07:26 08/08/18 07:26 08/08/18 07:26 08/08/18 07:26 Intake and Output: 08/08/18 08/08/18 06:59 18:59 Intake Total 500 Output Total 500 Balance 0 - Medications Medications: Current Medications Acetaminophen (Tylenol 325mg Tab) 650 mg PO Q6 PRN PRN Reason: Pain, moderate (4-7) Last Admin: 08/08/18 06:42 Dose: 650 mg Apixaban (Eliquis) 5 mg PO BID [facility] Last Admin: 08/08/18 09:20 Dose: 5 mg Dextrose (Dextrose 50% Inj) 0 ml IV STAT PRN; Protocol PRN Reason: Hypoglycemia Protocol Dextrose (Glutose 15) 0 gm PO ONCE PRN; Protocol PRN Reason: Hypoglycemia Protocol Gabapentin (Neurontin) 100 mg PO BID [facility] Last Admin: 08/08/18 09:20 Dose: 100 mg Glipizide (Glucotrol Xl) 2.5 mg PO ACB [facility] Last Admin: 08/08/18 08:30 Dose: 2.5 mg Glucagon (Glucagen Diagnostic Kit) 0 mg IM STAT PRN; Protocol PRN Reason: Hypoglycemia Protocol Insulin Aspart (Novolog) 0 unit SC ACHS [facility]; Protocol Last Admin: 08/08/18 11:56 Dose: Not Given Linezolid (Zyvox) 600 mg PO Q12H [facility] Last Admin: 08/08/18 08:32 Dose: 600 mg Losartan Potassium (Cozaar) 50 mg PO DAILY [facility] Last Admin: 08/08/18 09:20 Dose: 50 mg Metformin HCl (Glucophage) 500 mg PO ACB [facility] Last Admin: 08/08/18 08:30 Dose: 500 mg Montelukast Sodium (Singulair) 10 mg PO HS [facility] Last Admin: 08/07/18 21:14 Dose: 10 mg Mupirocin (Bactroban Ointment) 0 gm TOP BID [facility] Last Admin: 08/08/18 09:21 Dose: 1 applic Rosuvastatin Calcium (Crestor) 20 mg PO HS [facility] Last Admin: 08/07/18 21:15 Dose: 20 mg - Labs Labs: 08/08/18 07:11 08/08/18 07:11 Assessment and Plan (1) Cellulitis of right leg Status: Acute (2) COPD (chronic obstructive pulmonary disease) Status: Acute (3) Chronic deep venous thrombosis Status: Acute (4) Diabetes mellitus Status: Acute (5) Hypertension Status: Acute - Assessment and Plan (Free Text) Plan: CONTINUE iv ZYVOX 600 MG iv PIGGYBACK EVERY 12 HOURLY .08/04/18/ FOLLOW-UP CULTURES TO ADJUST ANTIBIOTIC. RADIOLOGY Venous duplex negative for DVT Tib/fib x-rays no osseous deformity. CT RLE R/O POPLITEAL CYST VS STS W/O CONTRAST - PENDING. WILL FOLLOW RESULTS.
--- NOTE | 2018-08-08 18:16 | CT ---
Date of service: 08/08/2018 PROCEDURE: CT right lower extremity HISTORY: R/O POPLITEAL CYST VS STSI/VS CELLULITIS COMPARISON: 08/04/2018. Right tibia and fibula. TECHNIQUE: 2.5 mm axial acquisition and display. Coronal and sagittal reconstructions. Dose report (mGy-cm): 249.17 FINDINGS: No visible popliteal fossa cyst. No evidence of myositis. Negative study for acute osseous process. No visible fracture. Findings suggestive of cellulitis anterolaterally at the level of the calf. Similar findings identified posterior medially also at the level of the calf/gastrocnemius muscles. However there are no underlying abnormalities within these muscle groups. IMPRESSION: Findings suggestive of cellulitis. No evidence of myositis. No popliteal cyst identified. No evidence of osteomyelitis.
[2018-08-09 01:32] VITALS: O2SAT 97
--- NOTE | 2018-08-09 01:45 | PN ---
DATE: 08/08/2018 SUBJECTIVE: Today, the patient is alert and awake, admitted having much less pain to do the right lower extremity. No dizziness. No chest pain. PHYSICAL EXAMINATION: VITAL SIGNS: The patient has blood pressure of 116/72, pulse 87, respirations 20, and temperature 98.4. NECK: Supple. No JVD. LUNGS: Clear. HEART: Regular rate and rhythm. ABDOMEN: Soft. Nontender. No palpable mass. EXTREMITIES: There is decreased redness of the right lower extremity with mild tenderness to the leg. LABORATORY DATA: The patient has blood test done. WBC 5.2, hemoglobin 11.7, hematocrit is 36.2 and platelet is 283. Chemistry showed sodium 141, potassium 3.6, chloride 105, and bicarbonate is 28. BUN 14, creatinine 0.8 and glucose 116. The ID doctor, Dr. Yonas Smith ordered a CAT scan of the right lower extremity, that came this afternoon, and that is suggestive of cellulitis, but there is no evidence of myositis and also of osteomyelitis. PLAN: So, the plan is that we are going to continue the antibiotic, IV. If possible discharge when cleared by ID. Case was discussed with Dominga Harrison, the nurse practitioner. Ambrocio Ramirez MD
[2018-08-09] MEDS: (Novolog) Insulin Aspart, Recombinant 100 u/ml 10 ml vial SC SCH ×2 (07:57→11:30)
[2018-08-09 08:06] VITALS: BP 132/78; PULSE 94; TEMP 97.9
[2018-08-09] MEDS: GlipiZIDE 2.5 mg SR Tab PO SCH (08:14)
--- NOTE | 2018-08-09 11:51 | CP.PCM.PN ---
Subjective - Date & Time of Evaluation Date of Evaluation: 08/09/18 Time of Evaluation: 11:51 Objective - Vital Signs/Intake and Output Vital Signs (last 24 hours): Temp Pulse Resp BP Pulse Ox 97.9 F 94 H 20 132/78 97 08/09/18 08:00 08/09/18 08:00 08/09/18 08:00 08/09/18 08:00 08/09/18 08:00 Intake and Output: 08/09/18 08/09/18 06:59 18:59 Intake Total 350 Balance 350 - Medications Medications: Current Medications Acetaminophen (Tylenol 325mg Tab) 650 mg PO Q6 PRN PRN Reason: Pain, moderate (4-7) Last Admin: 08/08/18 06:42 Dose: 650 mg Apixaban (Eliquis) 5 mg PO BID [facility] Last Admin: 08/09/18 10:02 Dose: 5 mg Dextrose (Dextrose 50% Inj) 0 ml IV STAT PRN; Protocol PRN Reason: Hypoglycemia Protocol Dextrose (Glutose 15) 0 gm PO ONCE PRN; Protocol PRN Reason: Hypoglycemia Protocol Gabapentin (Neurontin) 100 mg PO BID [facility] Last Admin: 08/09/18 10:01 Dose: 100 mg Glipizide (Glucotrol Xl) 2.5 mg PO ACB [facility] Last Admin: 08/09/18 08:14 Dose: 2.5 mg Glucagon (Glucagen Diagnostic Kit) 0 mg IM STAT PRN; Protocol PRN Reason: Hypoglycemia Protocol Insulin Aspart (Novolog) 0 unit SC [facility]; Protocol Last Admin: 08/09/18 07:57 Dose: Not Given Linezolid (Zyvox) 600 mg PO Q12H [facility] Last Admin: 08/09/18 08:26 Dose: 600 mg Losartan Potassium (Cozaar) 50 mg PO DAILY [facility] Last Admin: 08/09/18 10:01 Dose: 50 mg Metformin HCl (Glucophage) 500 mg PO ACB [facility] Last Admin: 08/09/18 08:14 Dose: 500 mg Montelukast Sodium (Singulair) 10 mg PO [facility] Last Admin: 08/08/18 21:02 Dose: 10 mg Mupirocin (Bactroban Ointment) 0 gm TOP BID [facility] Last Admin: 08/09/18 10:02 Dose: 1 applic Rosuvastatin Calcium (Crestor) 20 mg PO [facility] Last Admin: 08/08/18 21:02 Dose: 20 mg - Labs Labs: 08/08/18 07:11 08/08/18 07:11 Assessment and Plan (1) Cellulitis of right leg Status: Acute (2) COPD (chronic obstructive pulmonary disease) Status: Acute (3) Chronic deep venous thrombosis Status: Acute (4) Diabetes mellitus Status: Acute (5) Hypertension Status: Acute
--- NOTE | 2018-08-10 01:53 | PN ---
DATE: 08/09/2018 SUBJECTIVE: The patient was examined and evaluated. The patient was doing well. She was standing this morning and denied any pain to the right leg. PHYSICAL EXAMINATION: VITAL SIGNS: The patient has a blood pressure 130/81, pulse 84, respirations 20, temperature 99. NECK: Supple. No JVD. LUNGS: Clear. HEART: Regular rate and rhythm. ABDOMEN: Soft. Mildly obese but mild tenderness in the epigastric area which is old. EXTREMITIES: There is no edema of the lower extremities, but there is some mild tenderness with pressure to the right leg. LABORATORY DATA: The patient had a lower extremity CAT scan which failed to show any osteomyelitis but there is cellulitis. PLAN: So, the patient was put on Zyvox p.o. So, at this point we will consider discharge this patient today. The case was discussed and reviewed with Aleyda Ramon, nurse practitioner. Ambrocio Ramirez MD
--- NOTE | 2018-08-10 05:53 | DS ---
SUBJECTIVE: This patient is a 62-year-old female with history of hypertension, diabetes, chronic DVT and chronic pain, who was sent to the emergency room by Dr. Gale because of the pain for the past three weeks, and also she was having an infection of the right leg. The patient was on p.o. antibiotics without real improvement. So, the patient was on Levaquin and doxycycline. So, the patient was admitted. Had a consult with Dr. Yonas Smith, the ID. PHYSICAL EXAMINATION: ER found the patient to be alert and awake. The physical exam was essentially within normal limits except that the right leg was swollen, tender, red and also there was some spot of redness of the skin. The patient was put on medication including the Zyvox and also the patient had different tests done. Among them the patient had a CAT scan of the leg which has shown cellulitis, but no osteomyelitis. Now after a few days of further treatment, the patient is doing better. The leg has returned to its normal size and there is some tenderness to the leg . PLAN: The plan is that we are going to continue the Zyvox for four to five days and also we are going to continue with current medications, and the patient is going to see me in the office within a week. So, the case was reviewed and discussed with Aleyda Ramon, the nurse practitioner. Ambrocio Ramirez MD
== END 2018-08-09 14:43 | disposition home or self-care (01) | DRG 603 ==
LOC: C.ER 14:21 → C.3T 16:32
PROVIDERS: ADMIT Specialist; ATTEND Specialist
DX: L03.115 Cellulitis of right lower limb (principal); G89.29 Other chronic pain; I10 Essential (primary) hypertension; E11.9 Type 2 diabetes mellitus without complications; J44.9 Chronic obstructive pulmonary disease, unspecified; G47.33 Obstructive sleep apnea (adult) (pediatric); K21.9 Gastro-esophageal reflux disease without esophagitis; M19.90 Unspecified osteoarthritis, unspecified site; E78.00 Pure hypercholesterolemia, unspecified; Z86.718 Personal history of other venous thrombosis and embolism; Z79.01 Long term (current) use of anticoagulants; Z87.891 Personal history of nicotine dependence; Z88.0 Allergy status to penicillin; Z88.1 Allergy status to other antibiotic agents; Z91.013 Allergy to seafood; Z91.040 Latex allergy status; Z90.710 Acquired absence of both cervix and uterus

== ENCOUNTER 2018-09-05 09:57 | Outpatient (CLI) | payer MEDICARE, MEDICAID | END 2018-09-05 09:58 | disposition home or self-care (01) | LOC: C.LAB 09:57 | DX: E11.65 Type 2 diabetes mellitus with hyperglycemia (principal) ==

== ENCOUNTER 2018-09-13 10:56 | Inpatient (IN) | payer MEDICARE, MEDICAID ==
[2018-09-13 10:56] VITALS: BMI 32.4
[2018-09-13 12:59] LABS: BASO # 0.1 K/uL (0.0-0.2); BASO % 1.2 % (0.0-2.0); EOS # 0.1 K/uL (0.0-0.7); EOS % 1.5 % (0.0-4.0); HEMOGLOBIN 11.5 g/dL (11.0-16.0); LYMPH # 1.7 K/uL (1.0-4.3); LYMPH % 32.2 % (20.0-40.0); MEAN CELL VOLUME 87.5 fL (81.0-99.0); MEAN CORPUSCULAR HEMOGLOBIN 28.3 pg (27.0-31.0); MEAN CORPUSCULAR HGB CONC 32.3 g/dL (33.0-37.0); MEAN PLATELET VOLUME 9.3 fL (7.2-11.7); MONO # 0.4 K/uL (0.0-0.8); MONO % 7.8 % (0.0-10.0); NEUT % 57.3 % (50.0-75.0); NRBC % 0.1 % (0.0-2.0); RBC 4.07 Mil/uL (3.80-5.20); RED CELL DISTRIBUTION WIDTH 13.6 % (11.5-14.5); WHITE BLOOD COUNT 5.2 K/uL (4.8-10.8)
[2018-09-13 13:13] LABS: ALB/GLOB RATIO 1.4 (1.0-2.1); ALBUMIN 4.4 g/dL (3.5-5.0); ALT/SGPT 8 U/L (9-52); AST/SGOT 24 U/L (14-36); BLOOD UREA NITROGEN 18 mg/dL (7-17); CALCIUM 9.6 mg/dl (8.6-10.4); GFR NON-AFRICAN AMERICAN > 60
[2018-09-13] MEDS ORDERED: Morphine 4 MG/ML VIAL IV STA (13:21)
[2018-09-13] MEDS ORDERED: Moxifloxacin IV 400mg/250ml NS 400 MG/250 ML BAG IVPB ONE ×2 (13:24→13:59)
--- NOTE | 2018-09-13 16:34 | CP.PCM.CON ---
History of Present Illness - History of Present Illness History of Present Illness: INFECTIOUS DISEASE CONSULT. [id number] female with multiple medical problems including COPD, obstructive sleep apnea, diabetes mellitus type 2, chronic right and left leg DVT on eliquis. Patient was seen in my office yesterday complaining off severe right lower extremity pain and swelling with erythema and tenderness and feeling of tightness in the thigh and lower leg. Patient also had difficulty ambulating specially putting pressure on the right heel which had extensive erythema and slight discoloration and pigmentation on the lateral aspect of the foot. Patient was recently hospitalized at [facility] on 08/04/18 to 08/09/18 for similar complaints. Patient was given IV antibiotics and responded. Patient had venous Dopplers at that time which were negative on the right side but showed chronic wall thickening in the right femoral vein and popliteal vein. Patient here complaining of claudication and pain right foot including on ambulating. She is ambulating with a cane with much difficulty. Patient denies any cough or shortness of breath and states was taking some by mouth antibiotic but not helping her. Patient was therefore advised to go to the emergency room for admission and further evaluation. patient denies any fever or chills. In the ER patient received a dose of Avelox and started on Vibramycin as noted. INFECTIOUS DISEASE CONSULTATION REQUESTED BY DR. RAMIREZ PATIENT HAS MANY ALLERGIES. PATIENT WELL KNOWN TO ME FROM PREVIOUS HOSPITALIZATIONS. PATIENT HAS HISTORY OF pORT-a-cATH. pATIENT ALSO HAS HISTORY OF MRSA/ AND MULTIPLE GRAM-NEGATIVE/AND ENTEROCOCCAL SEPSIS INFECTIONS SECONDARY TO CATHETER-RELATED BLOODSTREAM INFECTIONS/ AND STSI. PATIENT DENIES ANY RECENT TRAVEL/OR ANY SICK CONTACTS. PMD: Dr. Ramirez [facility];as above. Social history. Ex-smoker. Denies drinking. IMMUNIZATIONS. Hx Tetanus Toxoid Vaccination: (UNSURE) Hx Influenza Vaccination: Yes Hx Pneumococcal Vaccination: Yes Allergies. Penicillin, vancomycin, clindamycin, latex, adhesive , shellfish. Patient is able to tolerate AZACTAM, AND TYGACIL, ZYVOX FAMILY HISTORY; NONCONTRIBUTORY Review of Systems - Constitutional Constitutional: absent: Chills, Fever - EENT Eyes: absent: Change in Vision Nose/Mouth/Throat: absent: Dry Mouth, Mouth Lesions, Odynophagia - Cardiovascular Cardiovascular: Leg Edema (right leg decubitus), Pedal Edema. absent: Chest Pain - Respiratory Respiratory: absent: Cough, Dyspnea - Gastrointestinal Gastrointestinal: absent: Abdominal Pain, Diarrhea, Nausea, Vomiting - Genitourinary Genitourinary: absent: Dysuria, Freq UTI - Musculoskeletal Musculoskeletal: Abnormal Gait, Radiating Pain into Limb (right leg pain, with pain on pressure on the heel.) - Integumentary Integumentary: Change in Pigmentation, Dry Skin (patient has chronic pigmentation and healed scars circumferential rt.lower extremity. 2+ edema right lower extremity.), Skin Ulcer - Neurological Neurological: Abnormal Gait - Hematologic/Lymphatic Hematologic: As Per HPI. absent: Easy Bleeding, Easy Bruising Past Patient History - Infectious Disease Hx of Infectious Diseases: MRSA - Past Medical History & Family History Past Medical History?: Yes - Past Social History Smoking Status: Never Smoked - CARDIAC Hx Hypercholesterolemia: Yes Hx Hypertension: Yes - PULMONARY Hx Chronic Obstructive Pulmonary Disease (COPD): Yes - NEUROLOGICAL Hx Neurological Disorder: No - HEENT Hx HEENT Problems: No - RENAL Hx Chronic Kidney Disease: No - ENDOCRINE/METABOLIC Hx Diabetes Mellitus Type 2: Yes - HEMATOLOGICAL/ONCOLOGICAL Hx Anemia: Yes - INTEGUMENTARY Hx Dermatological Problems: No - MUSCULOSKELETAL/RHEUMATOLOGICAL Hx Arthritis: Yes - GASTROINTESTINAL Hx Gastrointestinal Disorders: Yes Hx Gastroesophageal Reflux: Yes - GENITOURINARY/GYNECOLOGICAL Hx Genitourinary Disorders: No - PSYCHIATRIC Hx Psychophysiologic Disorder: No Hx Substance Use: No - SURGICAL HISTORY Hx Surgeries: Yes Hx Section: Yes (x 1) Hx Hysterectomy: Yes Other/Comment: Fibroids/Adhesions removal - ANESTHESIA Hx Anesthesia: Yes Hx Anesthesia Reactions: No Hx Malignant Hyperthermia: No Meds Allergies/Adverse Reactions: Allergies Allergy/AdvReac Type Severity Reaction Status Date / Time adhesive tape Allergy RASH Verified 08/04/18 14:30 clindamycin Allergy RASH Verified 08/04/18 14:30 Latex, Natural Rubber Allergy RASH Verified 08/04/18 14:30 Penicillins Allergy RASH Verified 08/04/18 14:30 shellfish derived Allergy RASH Verified 08/04/18 14:30 vancomycin Allergy RASH Verified 08/04/18 14:30 - Medications Medications: Current Medications Apixaban (Eliquis) 5 mg PO BID [facility] Gabapentin (Neurontin) 100 mg PO BID [facility] Glipizide (Glucotrol Xl) 5 mg PO ACD [facility] Hydrochlorothiazide (Microzide) 12.5 mg PO DAILY [facility] Doxycycline Hyclate 100 mg/ (Sodium Chloride) 100 mls @ 100 mls/hr IVPB Q12H [facility]; Protocol Last Admin: 09/13/18 15:41 Dose: 100 mls/hr Insulin Human Regular (Novolin R) 0 unit SC ACHS [facility]; Protocol Metformin HCl (Glucophage) 500 mg PO ACB [facility] Metformin HCl (Glucophage Xr) 750 mg PO HS [facility] Montelukast Sodium (Singulair) 10 mg PO HS [facility] Morphine Sulfate (Morphine) 2 mg IVP Q6H PRN PRN Reason: Pain, moderate (4-7) Pantoprazole Sodium (Protonix Ec Tab) 40 mg PO DAILY [facility] Rosuvastatin Calcium (Crestor) 10 mg PO DAILY [facility] Physical Exam - Constitutional Appears: No Acute Distress - Head Exam Head Exam: NORMAL INSPECTION - Eye Exam Eye Exam: EOMI, PERRL - ENT Exam ENT Exam: Normal Oropharynx - Neck Exam Neck exam: Positive for: Normal Inspection - Respiratory Exam Respiratory Exam: Clear to Auscultation Bilateral - Cardiovascular Exam Cardiovascular Exam: REGULAR RHYTHM, +S1, +S2 - GI/Abdominal Exam GI & Abdominal Exam: Normal Bowel Sounds, Soft - Extremities Exam Extremities exam: Positive for: pedal edema, tenderness (posterior heel/calcaneum. Cellulitis right lower extremity especially around the ankle and lateral aspect of the foot .), pedal pulses present (distant). Negative for: calf tenderness - Neurological Exam Neurological exam: Alert, CN II-XII Intact, Oriented x3 - Psychiatric Exam Psychiatric exam: Normal Mood - Skin Skin Exam: Normal Color, Warm Results - Vital Signs Recent Vital Signs: Last Vital Signs Temp 97.9 F 09/13/18 16:00 Pulse 84 09/13/18 16:00 Resp 20 09/13/18 16:00 BP 103/61 09/13/18 16:00 Pulse Ox 97 09/13/18 16:00 - Labs Result Diagrams: 09/13/18 12:55 09/13/18 12:55 Labs: Laboratory Results - last 24 hr 09/13/18 09/13/18 09/13/18 12:55 12:55 14:33 WBC 5.2 RBC 4.07 Hgb 11.5 Hct 35.6 MCV 87.5 MCH 28.3 MCHC 32.3 L RDW 13.6 Plt Count 278 MPV 9.3 Neut % (Auto) 57.3 Lymph % (Auto) 32.2 [place] % (Auto) 7.8 Eos % (Auto) 1.5 Baso % (Auto) 1.2 Neut # (Auto) 3.0 Lymph # (Auto) 1.7 [place] # (Auto) 0.4 Eos # (Auto) 0.1 Baso # (Auto) 0.1 Sodium 139 Potassium 3.6 Chloride 101 Carbon Dioxide 28 Anion Gap 14 BUN 18 H Creatinine 0.9 Est GFR ( Amer) > 60 Est GFR (Non-Af Amer) > 60 POC Glucose (mg/dL) 81 Random Glucose 125 H D Calcium 9.6 Total Bilirubin 0.5 AST 24 ALT 8 L D Alkaline Phosphatase 61 Total Protein 7.4 Albumin 4.4 Globulin 3.0 Albumin/Globulin Ratio 1.4 Assessment & Plan (1) Cellulitis of right foot Assessment and Plan: pancultures ESR, CRP, D DIMER. MRSA SCREEN. START iv ZYVOX 600 MG EVERY 12 HOURLY FOR POSSIBLE MRSA/*STREP CELLULITIS.09/13/18 CONTINUE iv VIBRAMYCIN 100 MG EVERY 12 HOURLY 09/13/18. PATIENT DID GET A DOSE OF iv AVELOX IN THE ER. XRAY RT. FOOT R/O SPUR -HEEL PAIN VASCULAR SURGERY CONSULT R/O PVD PODIATRY CONSULT PER DR RAMIREZ. CASE DISCUSSED WITH PMD Status: Acute (2) Chronic deep venous thrombosis Assessment and Plan: HAS HX OF PE AND CH. DVT RT /LT LE HAS +VE IVC FILTER. Status: Acute (3) Diabetes mellitus Status: Acute (4) Hypertension Status: Acute (5) Peripheral vascular disease Assessment and Plan: VASCULAR EVAL. PER DR RAMIREZ Status: Acute
[2018-09-13] MEDS: GlipiZIDE 5 mg SR Tab PO SCH (17:09)
[2018-09-13] MEDS: (Novolin R) Insulin Human Regular 100 units/ml vial SC SCH ×2 (17:10→21:49)
--- NOTE | 2018-09-13 17:44 | C.PDOC ---
History Of Present Illness 62 y/o female is sent in by her PMD Dr. Smith for admission for right leg cellulitis. Patient states she has been on PO antibiotics without resolution of infection. Patient denies fever, chest pain, or SOB. Patient states that she has chronic DVT in the right leg and is currently on eliquis and compliant with medications. Patient is refusing repeat duplex scan today here in the ER. Time Seen by Provider: 09/13/18 11:16 Chief Complaint (Nursing): Lower Extremity Problem/Injury History Per: Patient History/Exam Limitations: no limitations Onset/Duration Of Symptoms: Days Current Symptoms Are (Timing): Still Present Past Medical History Reviewed: Historical Data, Nursing Documentation, Vital Signs Vital Signs: Last Vital Signs Temp 97.9 F 09/13/18 16:00 Pulse 84 09/13/18 16:00 Resp 20 09/13/18 16:00 BP 103/61 09/13/18 16:00 Pulse Ox 97 09/13/18 16:00 - Medical History PMH: Anemia, Arthritis, Back Problems, COPD, Diabetes, Deep Vein Thrombosis (chronic or rt leg), HTN, Hypercholesterolemia Denies: Chronic Kidney Disease Surgical History: Endoscopy Denies: Pacemaker - [facility] Procedures ANESTH INJECT SYMP NERVE (10/17/14) COLONOSCOPY (06/14/14) ENDO EXCISION/DEST OF LESION OR TISSUE OF STOMACH (06/14/14) EXERCISE TREATMENT OF MUSCULOSK WHOLE USING ASSIST EQUIPMENT (10/29/16) HOME MANAGEMENT TREATMENT USING ASSIST EQUIPMENT (10/29/16) INFLUENZA VACCINATION (03/22/13) NON-INVASIVE MECHANICAL VENTILATION (01/05/13) PERIPH NERVE DESTRUCTION (12/05/14) Family History: States: No Known Family Hx - Social History Hx Tobacco Use: No Hx Alcohol Use: No Hx Substance Use: No - Immunization History Hx Tetanus Toxoid Vaccination: (UNSURE) Hx Influenza Vaccination: Yes Hx Pneumococcal Vaccination: Yes Review Of Systems Except As Marked, All Systems Reviewed And Found Negative. Constitutional: Negative for: Fever, Chills Cardiovascular: Negative for: Chest Pain Respiratory: Negative for: Cough, Shortness of Breath Musculoskeletal: Positive for: Other (Right leg cellulitis) Neurological: Negative for: Weakness, Numbness Physical Exam - Physical Exam Appears: Non-toxic, No Acute Distress Skin: Warm, Dry Head: Atraumatic, Normacephalic Eye(s): bilateral: Normal Inspection Oral Mucosa: Moist Neck: Supple Cardiovascular: Rhythm Regular, No Murmur Respiratory: Normal Breath Sounds, No Rales, No Rhonchi, No Wheezing Gastrointestinal/Abdominal: Soft, No Tenderness Extremity: Tenderness (to right lower leg), Capillary Refill (less than 2 seconds), Other (Right leg: chronic skin changes noted to the lower extremity, (+) erythema) Extremity: Bilateral: Normal ROM Neurological/Psych: Oriented x3, Normal Speech, Normal Motor, Normal Sensation Gait: Steady ED Course And Treatment - Laboratory Results Result Diagrams: 09/13/18 12:55 09/13/18 12:55 Lab Results: Total Bilirubin 0.5 mg/dL (0.2-1.3) 09/13/18 12:55 AST 24 U/L (14-36) 09/13/18 12:55 ALT 8 U/L (9-52) L D 09/13/18 12:55 Alkaline Phosphatase 61 U/L (38-126) 09/13/18 12:55 Total Protein 7.4 g/dL (6.3-8.3) 09/13/18 12:55 Albumin 4.4 g/dL (3.5-5.0) 09/13/18 12:55 Globulin 3.0 gm/dL (2.2-3.9) 09/13/18 12:55 Albumin/Globulin Ratio 1.4 (1.0-2.1) 09/13/18 12:55 O2 Sat by Pulse Oximetry: 97 (RA) Pulse Ox Interpretation: Normal Medical Decision Making Medical Decision Making: Plan: --Labs --Vibramycin --Avelox --Morphine --Toradol Spoke to Dr. Ramirez, antibiotics to be given as per admitting doctor. Disposition - Disposition Disposition: HOSPITALIZED Disposition Time: 12:50 Condition: FAIR - Clinical Impression Clinical Impression: Cellulitis of right leg - Scribe Statement The provider has reviewed the documentation as recorded by the Marcelle Cordero Provider Attestation: All medical record entries made by the Marcelle were at my direction and personally dictated by me. I have reviewed the chart and agree that the record accurately reflects my personal performance of the history, physical exam, medical decision making, and the department course for this patient. I have also personally directed, reviewed, and agree with the discharge instructions and disposition.
[2018-09-14 01:38] LABS: EOS # 0.1 K/uL (0.0-0.7); EOS % 1.9 % (0.0-4.0); HEMOGLOBIN 10.7 g/dL (11.0-16.0); LYMPH # 1.7 K/uL (1.0-4.3); LYMPH % 32.6 % (20.0-40.0); MEAN CORPUSCULAR HEMOGLOBIN 28.2 pg (27.0-31.0); MEAN CORPUSCULAR HGB CONC 32.5 g/dL (33.0-37.0); MEAN PLATELET VOLUME 8.4 fL (7.2-11.7); MONO # 0.5 K/uL (0.0-0.8); MONO % 9.9 % (0.0-10.0); NEUT # 2.8 K/uL (1.8-7.0); NEUT % 54.6 % (50.0-75.0); NRBC % 0.1 % (0.0-2.0); RBC 3.77 Mil/uL (3.80-5.20); RED CELL DISTRIBUTION WIDTH 13.1 % (11.5-14.5); WHITE BLOOD COUNT 5.2 K/uL (4.8-10.8)
[2018-09-14 02:04] LABS: ALB/GLOB RATIO 1.6 (1.0-2.1); ALBUMIN 4.2 g/dL (3.5-5.0); ALT/SGPT 16 U/L (9-52); AST/SGOT 21 U/L (14-36); BLOOD UREA NITROGEN 22 mg/dL (7-17); CALCIUM 9.1 mg/dl (8.6-10.4); GFR NON-AFRICAN AMERICAN 50
--- NOTE | 2018-09-14 04:54 | HP ---
HISTORY OF PRESENT ILLNESS: The patient is a 62-year-old female with history of chronic DVT, hypertension, diabetes, and the patient was brought to the emergency room because the patient was seen earlier by Dr. Smith, Infectious Disease, who found that the patient has cellulitis of the right leg and also some pain to the right foot. The patient was sent to the emergency room for admission, and the patient came the day after. ALLERGIES: THE PATIENT IS ALLERGIC TO PENICILLIN AND VANCOMYCIN. SOCIAL HISTORY: The patient lives with her , has no history of smoking or alcohol abuse. The patient is retired. FAMILY HISTORY: No inherited disease. REVIEW OF SYSTEMS: RESPIRATORY: The patient denies any shortness of breath. CARDIOVASCULAR: No chest pain. GASTROINTESTINAL: No nausea or vomiting. No constipation. No abdominal pain. The patient . GENITOURINARY: No dysuria. NEUROLOGIC: The patient feels weak and pain to the right lower extremity, mainly in the right foot. PHYSICAL EXAMINATION: GENERAL: The patient is alert, awake, and oriented x3. VITAL SIGNS: Blood pressure 114/81, pulse 110, respirations 18, and temperature 97.4. HEAD: Normocephalic and atraumatic. NECK: Supple. LUNGS: Clear. HEART: Regular rate and rhythm. There was some tachycardia on admission. ABDOMEN: Soft. Positive bowel sounds. There is mild tenderness in the epigastric area, which is old. EXTREMITIES: There is tenderness to the plantar heel, and also there is tenderness to the external aspect of the right lower leg, which is warm and red. Also, there was some excoriation of the skin of the legs which is scaly and the foot is warm. The patient did feel a pulse on both feet, and the patient has some tests done. LABORATORY DATA: The patient had labs done that showed WBC is 5.2, hemoglobin 11.5, hematocrit 35.6, and platelets 278. Chemistry; sodium 139, potassium 3.6, chloride 101, bicarb 28, BUN 18, creatinine 0.9, and glucose 125, AST is 24, ALT is 8, total bilirubin 0.5, calcium 9.6, total protein is 7.4, albumin is 4.4. IMPRESSION AND PLAN: The patient has cellulitis of the right leg, chronic deep venous thrombosis and tendinitis, diabetes, hypertension, and the patient has vascular disease. The patient will have a consult with Dr. Smith of [place] and also will have a consult with Dr. Roman, podiatry surgeon. Case was discussed with Aleyda Ramon, nurse practitioner. Ambrocio Ramirez MD
[2018-09-14] MEDS: (Novolin R) Insulin Human Regular 100 units/ml vial SC SCH ×5 (07:35→22:14)
[2018-09-14] MEDS: Pantoprazole 40 mg EC Tab PO SCH (10:11)
[2018-09-14] MEDS: Linezolid 600 mg in D5W 300 ml 600 MG/300 ML BAG IVPB SCH (12:57)
--- NOTE | 2018-09-14 12:59 | CP.PCM.CON ---
History of Present Illness - History of Present Illness History of Present Illness: Podiatry Consult Note for Dr. Roman 62F [facility] COPD, obstructive sleep apnea, diabetes mellitus type 2, chronic right and left leg DVT on manjit seen at bedside for right leg swelling and pain. Patient states that her leg tends to be swollen and painful but she was prompted to come into the Emergency Room after her pain began to increase over the last few days. She states that she was placed in the hospital in July for similar reasons. Patient also complains of pain to her right heel, especially when walking. She is AAO x 3 and NAD at time of visit. Denies any further pedal complaints. Denies any recent nausea, vomiting, fever, chills, chest pain, shortness of breath or diarrhea. She does relate that she has some posterior calf pain, especially when squeezed, but states that that pain has been persistently present since before her previous hospitalization. Review of Systems - Review of Systems All systems: reviewed and no additional remarkable complaints except Review of Systems: as per HPI Past Patient History - Infectious Disease Hx of Infectious Diseases: MRSA - Past Medical History & Family History Past Medical History?: Yes - Past Social History Smoking Status: Never Smoked - CARDIAC Hx Hypercholesterolemia: Yes Hx Hypertension: Yes - PULMONARY Hx Chronic Obstructive Pulmonary Disease (COPD): Yes - NEUROLOGICAL Hx Neurological Disorder: No - HEENT Hx HEENT Problems: No - RENAL Hx Chronic Kidney Disease: No - ENDOCRINE/METABOLIC Hx Diabetes Mellitus Type 2: Yes - HEMATOLOGICAL/ONCOLOGICAL Hx Anemia: Yes - INTEGUMENTARY Hx Dermatological Problems: No - MUSCULOSKELETAL/RHEUMATOLOGICAL Hx Arthritis: Yes - GASTROINTESTINAL Hx Gastrointestinal Disorders: Yes Hx Gastroesophageal Reflux: Yes - GENITOURINARY/GYNECOLOGICAL Hx Genitourinary Disorders: No - PSYCHIATRIC Hx Psychophysiologic Disorder: No Hx Substance Use: No - SURGICAL HISTORY Hx Surgeries: Yes Hx Section: Yes (x 1) Hx Hysterectomy: Yes Other/Comment: Fibroids/Adhesions removal - ANESTHESIA Hx Anesthesia: Yes Hx Anesthesia Reactions: No Hx Malignant Hyperthermia: No Meds Allergies/Adverse Reactions: Allergies Allergy/AdvReac Type Severity Reaction Status Date / Time adhesive tape Allergy RASH Verified 08/04/18 14:30 clindamycin Allergy RASH Verified 08/04/18 14:30 Latex, Natural Rubber Allergy RASH Verified 08/04/18 14:30 Penicillins Allergy RASH Verified 08/04/18 14:30 shellfish derived Allergy RASH Verified 08/04/18 14:30 vancomycin Allergy RASH Verified 08/04/18 14:30 - Medications Medications: Current Medications Apixaban (Eliquis) 5 mg PO BID [facility] Last Admin: 09/14/18 10:11 Dose: 5 mg Gabapentin (Neurontin) 100 mg PO BID [facility] Last Admin: 09/14/18 10:10 Dose: 100 mg Glipizide (Glucotrol Xl) 5 mg PO ACD [facility] Last Admin: 09/13/18 17:09 Dose: Not Given Hydrochlorothiazide (Microzide) 12.5 mg PO DAILY [facility] Last Admin: 09/14/18 10:48 Dose: 12.5 mg Doxycycline Hyclate 100 mg/ (Sodium Chloride) 100 mls @ 100 mls/hr IVPB Q12H [facility]; Protocol Last Admin: 09/14/18 01:07 Dose: 100 mls/hr Linezolid (Zyvox 600mg/300ml D5w) 600 mg in 300 mls @ 200 mls/hr IVPB Q12H [facility]; Protocol Insulin Human Regular (Novolin R) 0 unit SC ACHS [facility]; Protocol Last Admin: 09/14/18 07:35 Dose: Not Given Metformin HCl (Glucophage) 500 mg PO ACB [facility] Last Admin: 09/14/18 08:30 Dose: 500 mg Metformin HCl (Glucophage Xr) 750 mg PO HS [facility] Last Admin: 09/13/18 21:48 Dose: Not Given Montelukast Sodium (Singulair) 10 mg PO HS [facility] Last Admin: 09/13/18 21:46 Dose: 10 mg Morphine Sulfate (Morphine) 2 mg IVP Q6H PRN PRN Reason: Pain, moderate (4-7) Last Admin: 09/13/18 23:47 Dose: 2 mg Pantoprazole Sodium (Protonix Ec Tab) 40 mg PO DAILY [facility] Last Admin: 09/14/18 10:11 Dose: 40 mg Rosuvastatin Calcium (Crestor) 10 mg PO HS [facility] Physical Exam - Constitutional Appears: Well, Non-toxic, No Acute Distress - Extremities Exam Additional comments: RLE focused exam: Vasc: DP/PT pulses palpable 1/4 b/l secondary to 1+ pitting edema to the lower extremity. CFT < 3 seconds to all digits b/l. Skin temperature warm to warm from proximal to distal WNL. No abnormal increase in warmth to right lower extremity appreciated. Neuro: Epicritic and protective sensation grossly diminished b/l Derm: Diffuse xerosis noted to b/l feet and legs. Large, thickened callosity appreciated to right heel. Skin of lower leg is noted to be tense, especially at posterior calf. No open lesions, wounds, maceration, or abnormal growths appreciated at this time. No indication of ulceration underlying heel callous appreciated at this time MSK: Pain on palpation of posterior right calf and plantar heel at callous forma tion. ROM at ankle joint limited with knee extended and flexed. HAV deformity noted b/l Biomechanical examination: Ankle ROM < 10 degrees with knee extended and flexed STJ ROM 10 degrees inverted and 0 degrees everted RCSP everted Forefoot abducted on rearfoot b/l First ray equal dorsiflexion and plantarflexion b/l First MTPJ < 65 degrees b/l HAV deformity noted b/l - Neurological Exam Neurological exam: Alert, Oriented x3 - Psychiatric Exam Psychiatric exam: Normal Affect, Normal Mood Results - Vital Signs Recent Vital Signs: Last Vital Signs Temp 97.5 F L 09/14/18 07:53 Pulse 86 09/14/18 10:14 Resp 20 09/14/18 07:53 BP 131/81 09/14/18 10:14 Pulse Ox 96 09/14/18 07:53 - Labs Result Diagrams: 09/14/18 01:34 09/14/18 01:34 Labs: Laboratory Results - last 24 hr 09/13/18 09/13/18 09/13/18 12:55 12:55 14:33 WBC 5.2 RBC 4.07 Hgb 11.5 Hct 35.6 MCV 87.5 MCH 28.3 MCHC 32.3 L RDW 13.6 Plt Count 278 MPV 9.3 Neut % (Auto) 57.3 Lymph % (Auto) 32.2 [place] % (Auto) 7.8 Eos % (Auto) 1.5 Baso % (Auto) 1.2 Neut # (Auto) 3.0 Lymph # (Auto) 1.7 [place] # (Auto) 0.4 Eos # (Auto) 0.1 Baso # (Auto) 0.1 ESR D-Dimer, Quantitative Sodium 139 Potassium 3.6 Chloride 101 Carbon Dioxide 28 Anion Gap 14 BUN 18 H Creatinine 0.9 Est GFR ( Amer) > 60 Est GFR (Non-Af Amer) > 60 POC Glucose (mg/dL) 81 Random Glucose 125 H D Calcium 9.6 Total Bilirubin 0.5 AST 24 ALT 8 L D Alkaline Phosphatase 61 C-React Prot High Sens Total Protein 7.4 Albumin 4.4 Globulin 3.0 Albumin/Globulin Ratio 1.4 09/13/18 09/13/18 09/14/18 16:33 21:13 01:34 WBC 5.2 RBC 3.77 L Hgb 10.7 L Hct 32.8 L MCV 87.0 MCH 28.2 MCHC 32.5 L RDW 13.1 Plt Count 265 MPV 8.4 Neut % (Auto) 54.6 Lymph % (Auto) 32.6 [place] % (Auto) 9.9 Eos % (Auto) 1.9 Baso % (Auto) 1.0 Neut # (Auto) 2.8 Lymph # (Auto) 1.7 [place] # (Auto) 0.5 Eos # (Auto) 0.1 Baso # (Auto) 0.0 ESR D-Dimer, Quantitative Sodium Potassium Chloride Carbon Dioxide Anion Gap BUN Creatinine Est GFR ( Amer) Est GFR (Non-Af Amer) POC Glucose (mg/dL) 74 82 Random Glucose Calcium Total Bilirubin AST ALT Alkaline Phosphatase C-React Prot High Sens Total Protein Albumin Globulin Albumin/Globulin Ratio 09/14/18 09/14/18 09/14/18 01:34 01:34 01:34 WBC RBC Hgb Hct MCV MCH MCHC RDW Plt Count MPV Neut % (Auto) Lymph % (Auto) [place] % (Auto) Eos % (Auto) Baso % (Auto) Neut # (Auto) Lymph # (Auto) [place] # (Auto) Eos # (Auto) Baso # (Auto) ESR 36 H D-Dimer, Quantitative < 200 Sodium 136 Potassium 4.1 Chloride 103 Carbon Dioxide 28 Anion Gap 10 BUN 22 H Creatinine 1.1 Est GFR ( Amer) > 60 Est GFR (Non-Af Amer) 50 POC Glucose (mg/dL) Random Glucose 113 H Calcium 9.1 Total Bilirubin 0.2 AST 21 ALT 16 Alkaline Phosphatase 65 C-React Prot High Sens Total Protein 6.9 Albumin 4.2 Globulin 2.7 Albumin/Globulin Ratio 1.6 09/14/18 09/14/18 09/14/18 01:34 06:21 11:38 WBC RBC Hgb Hct MCV MCH MCHC RDW Plt Count MPV Neut % (Auto) Lymph % (Auto) [place] % (Auto) Eos % (Auto) Baso % (Auto) Neut # (Auto) Lymph # (Auto) [place] # (Auto) Eos # (Auto) Baso # (Auto) ESR D-Dimer, Quantitative Sodium Potassium Chloride Carbon Dioxide Anion Gap BUN Creatinine Est GFR ( Amer) Est GFR (Non-Af Amer) POC Glucose (mg/dL) 104 165 H Random Glucose Calcium Total Bilirubin AST ALT Alkaline Phosphatase C-React Prot High Sens 3.18 H Total Protein Albumin Globulin Albumin/Globulin Ratio Assessment & Plan - Assessment and Plan (Free Text) Assessment: 62F seen for RLE leg swelling and pain as well as painful right heel callous Plan: Patient seen and evaluated Plan discussed with Dr. Roman Afebrile, absent leukocytosis Foot xray read pending No dressing applied at this time No evidence of wounds or cellulitis appreciated Patient refused lotion to her right heel callosity No plan for surgical intervention at this time Podiatry will continue to follow while patient in house - Date & Time Date: 09/14/18 Time: 13:09
--- NOTE | 2018-09-14 14:47 | RAD ---
Date of service: 09/14/2018 PROCEDURE: Right Foot Radiographs. HISTORY: pain rt foot COMPARISON: 03/22/2018 TECHNIQUE: 3 views obtained. FINDINGS: BONES: No fracture appreciated. Some lateral concavity to the cortex without gross periosteal reaction of the 5th metatarsal head is noted no gas-forming cellulitis seen here. An exostosis is 1 consideration. Prior cortical remodeling/and/or erosion here is another. This appearance is unchanged with the 03/22/2018 study The overall cortical thickening especially the 4th metatarsal bone is similar on the oblique views dating back to 2018. Inferior calcaneal spur . Eva's tendon insetional enesthesophyte. Both findings similar. JOINTS: Moderately advanced 1st metatarsal-phalangeal joint arthrosis SOFT TISSUES: Mild increased diffuse soft tissue swelling about the forefoot plantar and volar aspect. No gas-forming cellulitis here noted. Correlate clinically. OTHER FINDINGS: None. IMPRESSION: No fracture or lytic lesion. Chronic changes as above. Correlate clinically
[2018-09-14] MEDS: Clotrimazole/Betamethasone Cream(15 gm) TOP SCH (17:56)
[2018-09-14] MEDS: GlipiZIDE 5 mg SR Tab PO SCH (17:57)
[2018-09-15] MEDS: Linezolid 600 mg in D5W 300 ml 600 MG/300 ML BAG IVPB SCH ×4 (00:07→23:48)
--- NOTE | 2018-09-15 00:25 | CP.PCM.PN ---
Subjective - Date & Time of Evaluation Date of Evaluation: 09/14/18 Time of Evaluation: 20:00 - Subjective Subjective: PT SEEN TODAY.09/14/18 LATE ENTRY AFEBRILE VSS C/O PAIN RT. FOOT AND LEG ON AMBULATING. Objective - Vital Signs/Intake and Output Vital Signs (last 24 hours): Temp Pulse Resp BP Pulse Ox 97.9 F 76 20 130/70 95 09/14/18 16:00 09/14/18 16:00 09/14/18 16:00 09/14/18 16:00 09/14/18 16:00 - Medications Medications: Current Medications Apixaban (Eliquis) 5 mg PO BID [facility] Last Admin: 09/14/18 17:54 Dose: 5 mg Betamethasone/Clotrimazole (Lotrisone) 0 gm TOP BID [facility] Last Admin: 09/14/18 17:56 Dose: 1 appl Fluocinonide (Lidex 0.05% Cream) 1 gm TOP BID [facility] Last Admin: 09/14/18 20:06 Dose: 1 applic Gabapentin (Neurontin) 100 mg PO BID [facility] Last Admin: 09/14/18 17:59 Dose: 100 mg Glipizide (Glucotrol Xl) 5 mg PO ACD [facility] Last Admin: 09/14/18 17:57 Dose: 5 mg Hydrochlorothiazide (Microzide) 12.5 mg PO DAILY [facility] Last Admin: 09/14/18 10:48 Dose: 12.5 mg Doxycycline Hyclate 100 mg/ (Sodium Chloride) 100 mls @ 100 mls/hr IVPB Q12H [facility]; Protocol Last Admin: 09/14/18 14:30 Dose: 100 mls/hr Linezolid (Zyvox 600mg/300ml D5w) 600 mg in 300 mls @ 200 mls/hr IVPB Q12H [facility]; Protocol Last Admin: 09/15/18 00:07 Dose: 200 mls/hr Insulin Human Regular (Novolin R) 0 unit SC ACHS [facility]; Protocol Last Admin: 09/14/18 22:14 Dose: Not Given Metformin HCl (Glucophage) 500 mg PO ACB [facility] Last Admin: 09/14/18 08:30 Dose: 500 mg Metformin HCl (Glucophage Xr) 750 mg PO HS [facility] Last Admin: 09/14/18 22:13 Dose: 750 mg Montelukast Sodium (Singulair) 10 mg PO [facility] Last Admin: 09/14/18 22:12 Dose: 10 mg Morphine Sulfate (Morphine) 2 mg IVP Q6H PRN PRN Reason: Pain, moderate (4-7) Last Admin: 09/14/18 19:54 Dose: 2 mg Pantoprazole Sodium (Protonix Ec Tab) 40 mg PO DAILY [facility] Last Admin: 09/14/18 10:11 Dose: 40 mg Rosuvastatin Calcium (Crestor) 10 mg PO [facility] Last Admin: 09/14/18 22:12 Dose: 10 mg - Labs Labs: 09/14/18 01:34 09/14/18 01:34 - Constitutional Appears: No Acute Distress - Head Exam Head Exam: NORMAL INSPECTION - Eye Exam Eye Exam: EOMI, PERRL - ENT Exam ENT Exam: Normal Oropharynx - Neck Exam Neck Exam: Normal Inspection - Respiratory Exam Respiratory Exam: Clear to Ausculation Bilateral - Cardiovascular Exam Cardiovascular Exam: Tachycardia, REGULAR RHYTHM, +S1, +S2 - GI/Abdominal Exam GI & Abdominal Exam: Soft, Normal Bowel Sounds - Extremities Exam Extremities Exam: Pedal Edema, Tenderness (RT LEG/ RT FOOT AND HEEL. +VE CELLULITIS LEFT LOWER LEG POSTERIORLY HEEL AND LATERAL ASPECT OF THE FOOT). absent: Calf Tenderness - Neurological Exam Neurological Exam: Abnormal Gait, Awake, CN II-XII Intact, Oriented x3 - Psychiatric Exam Psychiatric exam: Normal Mood - Skin Skin Exam: Normal Color, Warm Assessment and Plan (1) Cellulitis of right foot Status: Acute (2) Chronic deep venous thrombosis Status: Acute (3) Diabetes mellitus Status: Acute (4) Hypertension Status: Acute (5) Peripheral vascular disease Status: Acute - Assessment and Plan (Free Text) Plan: CONTINUE iv ZYVOX 600 MG EVERY 12 HOURLY FOR POSSIBLE MRSA/*STREP CELLULITIS.09/13/18 CONTINUE iv VIBRAMYCIN 100 MG EVERY 12 HOURLY 09/13/18. PATIENT DID GET A DOSE OF iv AVELOX IN THE ER. XRAY RT. FOOT R/O SPUR -HEEL PAIN VASCULAR SURGERY DR JOHNSON CONSULT R/O PVD PODIATRY CONSULT PER DR RHODES. CASE DISCUSSED WITH PMD / AND STAFF.
--- NOTE | 2018-09-15 00:57 | PN ---
DATE: 09/14/2018 SUBJECTIVE: Today, the patient is alert and awake, has a chief complaint of pain to the right leg and foot, and also the patient denies any shortness of breath. No dizziness or palpitation. PHYSICAL EXAMINATION: VITAL SIGNS: Blood pressure is 130/70, pulse 76, respirations 20, temperature 97.9. NECK: Supple. LUNGS: Clear. HEART: Regular rate and rhythm. ABDOMEN: Soft. Positive mild tenderness in the epigastric area. Positive bowel sounds. EXTREMITIES: There is some redness in the lower third aspect of the right foot and tenderness to the heel with pressure and also there is a crusty discoloration at the edge of the foot and the knee close to Achilles tendon posteriorly. LABORATORY DATA: Blood work done today showed that the WBC is 5.2, hemoglobin 10.7, hematocrit 32.8, and platelet is 265. The chemistry showed that the BUN 22, creatinine 1.1, sodium 136, potassium 4.1, chloride is 103, bicarb is 28, glucose 113, and AST 21, ALT 16, alkaline phosphatase 65. The patient also has x-ray of the right foot and that is positive for a spur, inferior calcaneal spur and Achilles tendon . PLAN: Podiatry consult is appreciated, and the patient is now on Zyvox as per ID. The patient will continue antibiotic therapy and we will discuss the case with ID and so the case was reviewed with Aleyda Ramon, the nurse practitioner. Also, we will order some Lidex to the right foot and also Lotrisone cream to the groin since the patient was complaining of some rash in the groin. Ambrocio Ramirez MD
[2018-09-15 08:04] LABS: BASO % 0.7 % (0.0-2.0); EOS # 0.1 K/uL (0.0-0.7); EOS % 2.3 % (0.0-4.0); HEMOGLOBIN 11.2 g/dL (11.0-16.0); LYMPH # 1.9 K/uL (1.0-4.3); LYMPH % 36.9 % (20.0-40.0); MEAN CELL VOLUME 86.2 fL (81.0-99.0); MEAN CORPUSCULAR HEMOGLOBIN 28.1 pg (27.0-31.0); MEAN CORPUSCULAR HGB CONC 32.6 g/dL (33.0-37.0); MEAN PLATELET VOLUME 8.8 fL (7.2-11.7); MONO # 0.4 K/uL (0.0-0.8); MONO % 7.5 % (0.0-10.0); NEUT # 2.7 K/uL (1.8-7.0); NEUT % 52.6 % (50.0-75.0); NRBC % 0.1 % (0.0-2.0); RBC 3.98 Mil/uL (3.80-5.20); RED CELL DISTRIBUTION WIDTH 13.5 % (11.5-14.5); WHITE BLOOD COUNT 5.1 K/uL (4.8-10.8)
[2018-09-15] MEDS: (Novolin R) Insulin Human Regular 100 units/ml vial SC SCH ×3 (08:22→21:56)
[2018-09-15 09:27] LABS: ALB/GLOB RATIO 1.5 (1.0-2.1); ALBUMIN 3.9 g/dL (3.5-5.0); ALT/SGPT 9 U/L (9-52); AST/SGOT 22 U/L (14-36); BLOOD UREA NITROGEN 15 mg/dL (7-17); CALCIUM 9.3 mg/dl (8.6-10.4); GFR NON-AFRICAN AMERICAN > 60
[2018-09-15] MEDS: Clotrimazole/Betamethasone Cream(15 gm) TOP SCH ×2 (09:56→18:01)
[2018-09-15] MEDS: Pantoprazole 40 mg EC Tab PO SCH (09:56)
--- NOTE | 2018-09-15 10:00 | CP.PCM.PN ---
Subjective - Date & Time of Evaluation Date of Evaluation: 09/15/18 Time of Evaluation: 09:56 - Subjective Subjective: Podiatry Progress Note for Dr. Roman 62F seen and evaluated at bedside for right lower extremity pain. Patient is AAO x 3 and NAD, resting comfortably in bed. States that she is still experiencing pain in her right leg, slightly improved since yesterday. Denies any acute overnight events or new pedal complaints. Denies any recent N/V/F/C/CP/SOB/D Objective - Vital Signs/Intake and Output Vital Signs (last 24 hours): Temp Pulse Resp BP Pulse Ox 98.1 F 86 20 127/62 99 09/15/18 08:27 09/15/18 08:27 09/15/18 08:27 09/15/18 08:27 09/15/18 08:27 - Medications Medications: Current Medications Apixaban (Eliquis) 5 mg PO BID [facility] Last Admin: 09/14/18 17:54 Dose: 5 mg Betamethasone/Clotrimazole (Lotrisone) 0 gm TOP BID [facility] Last Admin: 09/14/18 17:56 Dose: 1 appl Fluocinonide (Lidex 0.05% Cream) 1 gm TOP BID [facility] Last Admin: 09/14/18 20:06 Dose: 1 applic Gabapentin (Neurontin) 100 mg PO BID [facility] Last Admin: 09/14/18 17:59 Dose: 100 mg Glipizide (Glucotrol Xl) 5 mg PO ACD [facility] Last Admin: 09/14/18 17:57 Dose: 5 mg Hydrochlorothiazide (Microzide) 12.5 mg PO DAILY [facility] Last Admin: 09/14/18 10:48 Dose: 12.5 mg Doxycycline Hyclate 100 mg/ (Sodium Chloride) 100 mls @ 100 mls/hr IVPB Q12H [facility]; Protocol Last Admin: 09/15/18 01:36 Dose: 100 mls/hr Linezolid (Zyvox 600mg/300ml D5w) 600 mg in 300 mls @ 200 mls/hr IVPB Q12H [facility]; Protocol Last Admin: 09/15/18 05:37 Dose: 200 mls/hr Insulin Human Regular (Novolin R) 0 unit SC ACHS [facility]; Protocol Last Admin: 09/15/18 08:22 Dose: Not Given Metformin HCl (Glucophage) 500 mg PO ACB [facility] Last Admin: 09/14/18 08:30 Dose: 500 mg Metformin HCl (Glucophage Xr) 750 mg PO HS [facility] Last Admin: 09/14/18 22:13 Dose: 750 mg Montelukast Sodium (Singulair) 10 mg PO HS [facility] Last Admin: 09/14/18 22:12 Dose: 10 mg Morphine Sulfate (Morphine) 2 mg IVP Q6H PRN PRN Reason: Pain, moderate (4-7) Last Admin: 09/15/18 01:53 Dose: 2 mg Pantoprazole Sodium (Protonix Ec Tab) 40 mg PO DAILY [facility] Last Admin: 09/14/18 10:11 Dose: 40 mg Rosuvastatin Calcium (Crestor) 10 mg PO [facility] Last Admin: 09/14/18 22:12 Dose: 10 mg - Labs Labs: 09/15/18 07:49 09/15/18 07:49 - Constitutional Appears: Well, Non-toxic, No Acute Distress - Extremities Exam Additional comments: RLE focused exam: Vasc: DP/PT pulses palpable 1/4 b/l secondary to 1+ pitting edema to the lower extremity. CFT < 3 seconds to all digits b/l. Skin temperature warm to warm from proximal to distal WNL. No abnormal increase in warmth to right lower extremity appreciated. Neuro: Epicritic and protective sensation grossly diminished b/l Derm: Diffuse xerosis noted to b/l feet and legs. Large, thickened callosity appreciated to right heel. Skin of lower leg is noted to be tense, especially at posterior calf. No open lesions, wounds, maceration, or abnormal growths appreciated at this time. No indication of ulceration underlying heel callous appreciated at this time MSK: Pain on palpation of posterior right calf and plantar heel at callous formation. ROM at ankle joint limited with knee extended and flexed. HAV deformity noted b/l - Neurological Exam Neurological Exam: Alert, Awake, Oriented x3 - Psychiatric Exam Psychiatric exam: Normal Affect, Normal Mood Assessment and Plan - Assessment and Plan (Free Text) Assessment: 62F seen and evaluated at bedside for right lower extremity pain. Plan: Patient seen and evaluated with Dr. Roman Afebrile, absent leukocytosis Right foot xray: No fracture or lytic lesion. Chronic changes noted No plan for further surgical intervention at this time Ammonium lactate lotion ordered to be applied to patient's feet twice daily Podiatry will continue to follow while patient in house
--- NOTE | 2018-09-15 11:06 | CP.PCM.PN ---
Subjective - Date & Time of Evaluation Date of Evaluation: 09/15/18 Time of Evaluation: 11:06 Objective - Vital Signs/Intake and Output Vital Signs (last 24 hours): Temp Pulse Resp BP Pulse Ox 98.1 F 95 H 20 118/85 99 09/15/18 08:27 09/15/18 09:58 09/15/18 08:27 09/15/18 09:58 09/15/18 08:27 - Medications Medications: Current Medications Apixaban (Eliquis) 5 mg PO BID [facility] Last Admin: 09/15/18 09:56 Dose: 5 mg Betamethasone/Clotrimazole (Lotrisone) 0 gm TOP BID [facility] Last Admin: 09/15/18 09:56 Dose: 1 appl Fluocinonide (Lidex 0.05% Cream) 1 gm TOP BID [facility] Last Admin: 09/15/18 09:57 Dose: 1 applic Gabapentin (Neurontin) 100 mg PO BID [facility] Last Admin: 09/15/18 09:55 Dose: 100 mg Glipizide (Glucotrol Xl) 5 mg PO ACD [facility] Last Admin: 09/14/18 17:57 Dose: 5 mg Hydrochlorothiazide (Microzide) 12.5 mg PO DAILY [facility] Last Admin: 09/15/18 09:55 Dose: 12.5 mg Doxycycline Hyclate 100 mg/ (Sodium Chloride) 100 mls @ 100 mls/hr IVPB Q12H [facility]; Protocol Last Admin: 09/15/18 01:36 Dose: 100 mls/hr Linezolid (Zyvox 600mg/300ml D5w) 600 mg in 300 mls @ 200 mls/hr IVPB Q12H [facility]; Protocol Last Admin: 09/15/18 05:37 Dose: 200 mls/hr Insulin Human Regular (Novolin R) 0 unit SC ACHS [facility]; Protocol Last Admin: 09/15/18 08:22 Dose: Not Given Lactic Acid (Lac-Hydrin 12% Lotion (225 G)) 0 gm EXT BID [facility] Metformin HCl (Glucophage) 500 mg PO ACB [facility] Last Admin: 09/15/18 08:30 Dose: 500 mg Metformin HCl (Glucophage Xr) 750 mg PO HS [facility] Last Admin: 09/14/18 22:13 Dose: 750 mg Montelukast Sodium (Singulair) 10 mg PO HS [facility] Last Admin: 09/14/18 22:12 Dose: 10 mg Morphine Sulfate (Morphine) 2 mg IVP Q6H PRN PRN Reason: Pain, moderate (4-7) Last Admin: 09/15/18 10:02 Dose: 2 mg Pantoprazole Sodium (Protonix Ec Tab) 40 mg PO DAILY [facility] Last Admin: 09/15/18 09:56 Dose: 40 mg Rosuvastatin Calcium (Crestor) 10 mg PO [facility] Last Admin: 09/14/18 22:12 Dose: 10 mg - Labs Labs: 09/15/18 07:49 09/15/18 07:49 Assessment and Plan (1) Cellulitis of right foot Status: Acute (2) Chronic deep venous thrombosis Status: Acute (3) Diabetes mellitus Status: Acute (4) Hypertension Status: Acute (5) Peripheral vascular disease Status: Acute
[2018-09-15] MEDS: GlipiZIDE 5 mg SR Tab PO SCH (18:00)
[2018-09-15] MEDS: Ammonium Lactate 12% Lotion (225 g) EXT SCH (18:03)
--- NOTE | 2018-09-15 18:32 | CP.PCM.PN ---
Subjective - Date & Time of Evaluation Date of Evaluation: 09/15/18 Time of Evaluation: 18:32 - Subjective Subjective: AFEBRILE VSS C/O PAIN RT. FOOT/HEEL AND LEG ON AMBULATING. " CAN'T PUT PRESSURE ON THE HEEL " PER PT. LABS/RADIOLOGY; RIGHT FOOT X-RAY; -VE FRACTURE INFERIOR CALCANEAL SPUR/ ACHILLES TENDON ENTHESIOPATHY. CASE DISCUSSED WITH PODIATRY DR SYLVESTER. PLAN; F/U US RT LE PVD - PENDING. PODIATRY TO EVALUATE FOR RT HEEL CALCANEAL SPUR ? STEROID INJECTION Objective - Vital Signs/Intake and Output Vital Signs (last 24 hours): Temp Pulse Resp BP Pulse Ox 97.6 F 69 18 114/67 94 L 09/15/18 16:00 09/15/18 16:00 09/15/18 16:00 09/15/18 16:00 09/15/18 16:00 - Medications Medications: Current Medications Apixaban (Eliquis) 5 mg PO BID [facility] Last Admin: 09/15/18 17:58 Dose: 5 mg Betamethasone/Clotrimazole (Lotrisone) 0 gm TOP BID [facility] Last Admin: 09/15/18 18:01 Dose: 1 appl Fluocinonide (Lidex 0.05% Cream) 1 gm TOP BID [facility] Last Admin: 09/15/18 18:01 Dose: 1 applic Gabapentin (Neurontin) 100 mg PO BID [facility] Last Admin: 09/15/18 17:58 Dose: 100 mg Glipizide (Glucotrol Xl) 5 mg PO ACD [facility] Last Admin: 09/15/18 18:00 Dose: 5 mg Hydrochlorothiazide (Microzide) 12.5 mg PO DAILY [facility] Last Admin: 09/15/18 09:55 Dose: 12.5 mg Doxycycline Hyclate 100 mg/ (Sodium Chloride) 100 mls @ 100 mls/hr IVPB Q12H [facility]; Protocol Last Admin: 09/15/18 14:30 Dose: 100 mls/hr Linezolid (Zyvox 600mg/300ml D5w) 600 mg in 300 mls @ 200 mls/hr IVPB Q12H [facility]; Protocol Last Admin: 09/15/18 12:20 Dose: 200 mls/hr Insulin Human Regular (Novolin R) 0 unit SC [facility]; Protocol Last Admin: 09/15/18 12:30 Dose: Not Given Lactic Acid (Lac-Hydrin 12% Lotion (225 G)) 0 gm EXT BID [facility] Last Admin: 09/15/18 18:03 Dose: 1 appl Metformin HCl (Glucophage) 500 mg PO ACB [facility] Last Admin: 09/15/18 08:30 Dose: 500 mg Metformin HCl (Glucophage Xr) 750 mg PO HS [facility] Last Admin: 09/14/18 22:13 Dose: 750 mg Montelukast Sodium (Singulair) 10 mg PO [facility] Last Admin: 09/14/18 22:12 Dose: 10 mg Morphine Sulfate (Morphine) 2 mg IVP Q6H PRN PRN Reason: Pain, moderate (4-7) Last Admin: 09/15/18 17:56 Dose: 2 mg Pantoprazole Sodium (Protonix Ec Tab) 40 mg PO DAILY [facility] Last Admin: 09/15/18 09:56 Dose: 40 mg Rosuvastatin Calcium (Crestor) 10 mg PO [facility] Last Admin: 09/14/18 22:12 Dose: 10 mg - Labs Labs: 09/15/18 07:49 09/15/18 07:49 - Constitutional Appears: No Acute Distress - Head Exam Head Exam: NORMAL INSPECTION - Eye Exam Eye Exam: EOMI - ENT Exam ENT Exam: Normal Oropharynx - Neck Exam Neck Exam: Normal Inspection - Respiratory Exam Respiratory Exam: Clear to Ausculation Bilateral, NORMAL BREATHING PATTERN - Cardiovascular Exam Cardiovascular Exam: REGULAR RHYTHM, +S1, +S2 - GI/Abdominal Exam GI & Abdominal Exam: Soft, Normal Bowel Sounds - Extremities Exam Extremities Exam: Pedal Edema, Tenderness (RT HEEL/ ANKLE +VE CELLULITIS RT ANKLE). absent: Calf Tenderness - Neurological Exam Neurological Exam: Alert, Awake, CN II-XII Intact, Oriented x3, Reflexes Normal - Psychiatric Exam Psychiatric exam: Normal Mood - Skin Skin Exam: Normal Color, Warm Assessment and Plan (1) Calcaneal spur of right foot Status: Acute (2) Cellulitis of right foot Status: Acute (3) Chronic deep venous thrombosis Status: Acute (4) Diabetes mellitus Status: Acute (5) Hypertension Status: Acute (6) Peripheral vascular disease Status: Acute - Assessment and Plan (Free Text) Plan: CONTINUE iv ZYVOX 600 MG EVERY 12 HOURLY FOR POSSIBLE MRSA/*STREP CELLULITIS.09/13/18 CONTINUE iv VIBRAMYCIN 100 MG EVERY 12 HOURLY 09/13/18. PODIATRY TO REEVALUATE PT IN AM FOR CALCANEAL SPUR RT HEEL CASE DISCUSSED WITH PMD / AND STAFF.
--- NOTE | 2018-09-15 23:38 | PN ---
DATE: 09/15/2018 SUBJECTIVE: Today, the patient is alert and awake. She was seen this morning sitting on chair, complaining of some pain to the right leg and also in the heel. The patient denies any shortness of breath. No chest pain. No palpitation. PHYSICAL EXAMINATION: VITAL SIGNS: The patient has a blood pressure of 114/67, pulse 69, respirations 18, and temperature 97.6. NECK: Supple. No JVD. LUNGS: Clear. HEART: Regular rate and rhythm. ABDOMEN: Soft. Mild tenderness to the epigastric area. Positive bowel sounds. EXTREMITIES: There is some tenderness to the external aspect of the right leg, and there is tenderness in the heel of the right foot. LABORATORY DATA: The patient has tests done. Has an x-ray of the right foot that was positive for inferior calcaneal spur and Achilles tendon . Also, the lab showed that WBC is 5.1, hemoglobin 11.2, hematocrit 34.3 and platelet is 306. ASSESSMENT AND PLAN: The plan is that we will repeat arterial Doppler of the lower extremities and also since the patient has some discoloration to the edge of the right foot. The case was reviewed and discussed with Aleyda Ramon, the nurse practitioner. Ambrocio Ramirez MD
[2018-09-16 02:27] VITALS: RESP 20; TEMP 97.8
[2018-09-16] MEDS: (Novolin R) Insulin Human Regular 100 units/ml vial SC SCH (07:36)
[2018-09-16 08:13] VITALS: O2SAT 98
[2018-09-16] MEDS: Pantoprazole 40 mg EC Tab PO SCH (09:26)
[2018-09-16] MEDS: Ammonium Lactate 12% Lotion (225 g) EXT SCH (09:28)
[2018-09-16] MEDS: Clotrimazole/Betamethasone Cream(15 gm) TOP SCH (09:29)
[2018-09-16 09:30] VITALS: BP 119/79; PULSE 89
--- NOTE | 2018-09-16 11:40 | CP.PCM.PN ---
Subjective - Date & Time of Evaluation Date of Evaluation: 09/16/18 Time of Evaluation: 11:37 - Subjective Subjective: Podiatry Progress Note for Dr. Roman 62F seen and evaluated at bedside for right lower extremity pain. Patient is AAO x 3 and NAD, resting comfortably in bed. States that she continues to have severe pain in her heel. Denies any recent N/V/F/C/CP/SOB/D Objective - Vital Signs/Intake and Output Vital Signs (last 24 hours): Temp Pulse Resp BP Pulse Ox 97.8 F 89 20 119/79 98 09/16/18 07:00 09/16/18 09:29 09/16/18 07:00 09/16/18 09:29 09/16/18 07:00 - Medications Medications: Current Medications Apixaban (Eliquis) 5 mg PO BID [facility] Last Admin: 09/16/18 09:26 Dose: 5 mg Betamethasone/Clotrimazole (Lotrisone) 0 gm TOP BID [facility] Last Admin: 09/16/18 09:29 Dose: 1 appl Fluocinonide (Lidex 0.05% Cream) 1 gm TOP BID [facility] Last Admin: 09/16/18 09:29 Dose: 1 applic Gabapentin (Neurontin) 100 mg PO BID [facility] Last Admin: 09/16/18 09:26 Dose: 100 mg Glipizide (Glucotrol Xl) 5 mg PO ACD [facility] Last Admin: 09/15/18 18:00 Dose: 5 mg Hydrochlorothiazide (Microzide) 12.5 mg PO DAILY [facility] Last Admin: 09/16/18 09:26 Dose: 12.5 mg Doxycycline Hyclate 100 mg/ (Sodium Chloride) 100 mls @ 100 mls/hr IVPB Q12H [facility]; Protocol Last Admin: 09/16/18 01:38 Dose: 100 mls/hr Linezolid (Zyvox 600mg/300ml D5w) 600 mg in 300 mls @ 200 mls/hr IVPB Q12H [facility]; Protocol Last Admin: 09/15/18 23:48 Dose: 200 mls/hr Insulin Human Regular (Novolin R) 0 unit SC ACHS [facility]; Protocol Last Admin: 09/16/18 07:36 Dose: Not Given Lactic Acid (Lac-Hydrin 12% Lotion (225 G)) 0 gm EXT BID [facility] Last Admin: 09/16/18 09:28 Dose: 1 appl Metformin HCl (Glucophage) 500 mg PO ACB [facility] Last Admin: 09/16/18 08:26 Dose: 500 mg Metformin HCl (Glucophage Xr) 750 mg PO HS [facility] Last Admin: 09/15/18 21:56 Dose: Not Given Montelukast Sodium (Singulair) 10 mg PO HS [facility] Last Admin: 09/15/18 21:56 Dose: 10 mg Morphine Sulfate (Morphine) 2 mg IVP Q6H PRN PRN Reason: Pain, moderate (4-7) Last Admin: 09/16/18 09:24 Dose: 2 mg Pantoprazole Sodium (Protonix Ec Tab) 40 mg PO DAILY [facility] Last Admin: 09/16/18 09:26 Dose: 40 mg Rosuvastatin Calcium (Crestor) 10 mg PO HS [facility] Last Admin: 09/15/18 21:56 Dose: 10 mg - Labs Labs: 09/15/18 07:49 09/15/18 07:49 - Constitutional Appears: Well, Non-toxic, No Acute Distress - Extremities Exam Additional comments: RLE focused exam: Vasc: DP/PT pulses palpable 1/4 b/l secondary to 1+ pitting edema to the lower extremity. CFT < 3 seconds to all digits b/l. Skin temperature warm to warm from proximal to distal WNL. No abnormal increase in warmth to right lower extremity appreciated. Neuro: Epicritic and protective sensation grossly diminished b/l Derm: Diffuse xerosis noted to b/l feet and legs. Large, thickened callosity appreciated to right heel. Skin of lower leg is noted to be tense, especially at posterior calf. No open lesions, wounds, maceration, or abnormal growths appr eciated at this time. No indication of ulceration underlying heel callous appreciated at this time MSK: Pain on palpation of plantar heel at callous formation. ROM at ankle joint limited with knee extended and flexed. HAV deformity noted b/l - Neurological Exam Neurological Exam: Alert, Awake, Oriented x3 - Psychiatric Exam Psychiatric exam: Normal Affect, Normal Mood Assessment and Plan - Assessment and Plan (Free Text) Assessment: 62F seen and evaluated at bedside for right lower extremity pain Plan: Patient seen and evaluated with Dr. Roman Afebrile, absent leukocytosis Right foot xray: No fracture or lytic lesion. Chronic changes noted including plantar heel spur No plan for further surgical intervention at this time Patient to follow up with Dr. Gale following discharge for debridement of plantar heel callus and possible plantar fascial injection
--- NOTE | 2018-09-18 14:01 | VASCLAB ---
Date of service: 09/15/2018 STUDY DESCRIPTION: Lower Extremity Arterial Exam (PVR). HISTORY: r/o PVD PRIORS: None. TECHNIQUE: Pulse volume recording waveforms and segmental pressures of bilateral lower extremities at multiple levels were obtained. Ankle Brachial Indices (ABIs) were calculated. Report prepared by MITZI Melgar, RVT RIGHT LOWER EXTREMITY: * Brachial artery: Pressure - 139 mmHg. * High thigh: Pressure - mmHg: Ratio - : PVR waveform - Pulsatile * Low thigh: Pressure - mmHg: Ratio - PVR waveform: Pulsatile * Calf: Pressure - 155 mmHg: Ratio - 1.11 PVR waveform: Pulsatile * Posterior tibial Artery: Pressure - 148 mmHg: Ratio - 1.06 PVR waveform: Pulsatile * Dorsalis pedis Artery: Pressure - 156 mmHg: Ratio - 1.11 PVR waveform: Pulsatile * Great toe: Pressure - mmHg: Ratio - PVR waveform: Ankle brachial index (LIZ): 1.11 LEFT LOWER EXTREMITY: * Brachial artery: Pressure - 140 mmHg. * High thigh: Pressure - mmHg: Ratio - : PVR waveform - Pulsatile * Low thigh: Pressure - mmHg: Ratio - PVR waveform: Pulsatile * Calf: Pressure - 156 mmHg: Ratio - 1.11 PVR waveform: Pulsatile * Posterior tibial Artery: Pressure - 151 mmHg: Ratio - 1.08 PVR waveform: Pulsatile * Dorsalis pedis Artery: Pressure - 167 mmHg: Ratio - 1.19 PVR waveform: Pulsatile * Great toe: Pressure - mmHg: Ratio - PVR waveform: Ankle brachial index (LIZ): 1.19 OTHER FINDINGS: Right: Left: IMPRESSION: Right: There was no evidence of hemodynamically significant arterial insufficiency in the right lower extremity. Left: There was no evidence of hemodynamically significant arterial insufficiency in the left lower extremity.
== END 2018-09-16 11:59 | disposition home or self-care (01) | DRG 603 ==
LOC: C.ER 10:56 → C.5S 13:29 → C.9E 13:43 → C.5S 14:00
PROVIDERS: ADMIT Specialist; ATTEND Specialist
DX: L03.115 Cellulitis of right lower limb (principal); I82.501 Chronic embolism and thrombosis of unspecified deep veins of right lower extremity; G47.33 Obstructive sleep apnea (adult) (pediatric); I10 Essential (primary) hypertension; J44.9 Chronic obstructive pulmonary disease, unspecified; M77.31 Calcaneal spur, right foot; Z79.01 Long term (current) use of anticoagulants; L84 Corns and callosities; K21.9 Gastro-esophageal reflux disease without esophagitis; E11.51 Type 2 diabetes mellitus with diabetic peripheral angiopathy without gangrene